=== PATIENT | male | born 1980 | race Caucasian/White ===

== ENCOUNTER 2017-08-11 10:30 | Day surgery (SDC) | payer MEDICAID ==
[~2017-08-11 10:30] MED LIST: INSU100V36 SQ; LANTUS SQ; LISI10TA4 PO
[2017-08-11] MEDS ORDERED: LIDOcaine 2% 5ml jelly ONE (12:16)
[2017-08-11] MEDS ORDERED: LIDOcaine 2% 5ml jelly TOP ONE (15:30)
== END 2017-08-11 12:44 | disposition home or self-care (01) ==
LOC: WOUND CARE 10:30
PROVIDERS: ATTEND Surgery
DX: E11.621 Type 2 diabetes mellitus with foot ulcer (principal); L97.511 Non-pressure chronic ulcer of other part of right foot limited to breakdown of skin; I10 Essential (primary) hypertension; Z72.89 Other problems related to lifestyle
CPT/HCPCS: 11042; 36416; 82948; A6021; A6206; A6209; A6446

== ENCOUNTER 2017-08-26 09:44 | Day surgery (SDC) | payer MEDICAID ==
[2017-08-26] MEDS ORDERED: LIDOcaine 2% 5ml jelly ONE (10:12)
== END 2017-08-26 11:00 | disposition home or self-care (01) ==
LOC: WOUND CARE 09:44
PROVIDERS: ATTEND Surgery
DX: E11.621 Type 2 diabetes mellitus with foot ulcer (principal); L97.511 Non-pressure chronic ulcer of other part of right foot limited to breakdown of skin; I10 Essential (primary) hypertension; Z72.89 Other problems related to lifestyle
CPT/HCPCS: 11042; 36416; 82948; A6021; A6209; A6222

== ENCOUNTER 2017-09-02 08:45 | Day surgery (SDC) | payer MEDICAID ==
[2017-09-02] MEDS ORDERED: LIDOcaine 2% 5ml jelly ONE (09:28)
== END 2017-09-02 10:57 | disposition home or self-care (01) ==
LOC: WOUND CARE 08:45
PROVIDERS: ATTEND Surgery
DX: E11.621 Type 2 diabetes mellitus with foot ulcer (principal); L97.511 Non-pressure chronic ulcer of other part of right foot limited to breakdown of skin; I10 Essential (primary) hypertension; Z89.431 Acquired absence of right foot; Z72.89 Other problems related to lifestyle
CPT/HCPCS: 15275; 36416; 82948; A6212; A6222; Q4106

== ENCOUNTER 2017-09-09 09:06 | Day surgery (SDC) | payer MEDICAID ==
[2017-09-09] MEDS ORDERED: dextrose ORAL solution 15 GM/59 ML bottle ONE ×2 (09:50→10:09)
[2017-09-09] MEDS ORDERED: LIDOcaine 2% 5ml jelly ONE (09:57)
[2017-09-09] MEDS ORDERED: LIDOcaine 1%/PF (10mg/ml) 5ml vial ONE (10:38)
== END 2017-09-09 11:04 | disposition home or self-care (01) ==
LOC: WOUND CARE 09:06
PROVIDERS: ATTEND Surgery
DX: E11.621 Type 2 diabetes mellitus with foot ulcer (principal); L97.511 Non-pressure chronic ulcer of other part of right foot limited to breakdown of skin; I10 Essential (primary) hypertension; Z89.431 Acquired absence of right foot; Z72.89 Other problems related to lifestyle
CPT/HCPCS: 15275; 36416; 82948; A6209; A6222; J2001; Q4106; A6250

== ENCOUNTER 2017-09-11 09:20 | Outpatient (CLI) | payer MEDICAID | END 2017-09-11 10:03 | disposition home or self-care (01) | LOC: WOUND CARE 09:20 | PROVIDERS: ATTEND Surgery | DX: E11.621 Type 2 diabetes mellitus with foot ulcer (principal); L97.511 Non-pressure chronic ulcer of other part of right foot limited to breakdown of skin; I10 Essential (primary) hypertension; Z89.431 Acquired absence of right foot; Z72.89 Other problems related to lifestyle | CPT/HCPCS: 36416; 82948; 99211; A6209; A6446 ==

== ENCOUNTER 2017-09-16 10:21 | Outpatient (CLI) | payer MEDICAID | END 2017-09-16 11:44 | disposition home or self-care (01) | LOC: WOUND CARE 10:21 → EDSTATUS 10:30 → WOUND CARE 11:44 | PROVIDERS: ATTEND Surgery | DX: E11.621 Type 2 diabetes mellitus with foot ulcer (principal); L97.511 Non-pressure chronic ulcer of other part of right foot limited to breakdown of skin; E11.40 Type 2 diabetes mellitus with diabetic neuropathy, unspecified; I10 Essential (primary) hypertension; Z89.431 Acquired absence of right foot; Z72.89 Other problems related to lifestyle | CPT/HCPCS: 36416; 82948; 99215; A6021; A6206; A6212 ==

== ENCOUNTER 2017-09-23 08:51 | Day surgery (SDC) | payer MEDICAID ==
[2017-09-23] MEDS ORDERED: LIDOcaine 2% 5ml jelly ONE (09:51)
[2017-09-23 10:45] LABS: BASOPHILS % (AUTO) 0.4 % (0-1); EOSINOPHILS # (AUTO) 0.2 X10'3 (0-0.9); EOSINOPHILS % (AUTO) 4.1 % (0-6); HEMOGLOBIN 13.8 g/dl (14.0-17.9); LYMPHOCYTES % (AUTO) 16.1 % (21-51); MEAN CORPUSCULAR HEMOGLOBIN 28.5 PG (27.0-31.0); MEAN CORPUSCULAR HGB CONC 34.5 % (33.0-36.5); MEAN CORPUSCULAR VOLUME 82.7 FL (78-98); MONOCYTES % (AUTO) 17.3 % (2-12); NEUTROPHILS # (AUTO) 3.7 X10'3 (1.8-7.7); NEUTROPHILS % (AUTO) 62.1 % (42-75); PLATELET COUNT 249 X10'3 (140-440); RED BLOOD COUNT 4.84 X10'6 (4.70-6.10); RED CELL DISTRIBUTION WIDTH 14.8 % (11.5-14.5)
== END 2017-09-23 11:45 | disposition home or self-care (01) ==
LOC: WOUND CARE 08:51
PROVIDERS: ATTEND Surgery
DX: E11.621 Type 2 diabetes mellitus with foot ulcer (principal); L97.511 Non-pressure chronic ulcer of other part of right foot limited to breakdown of skin; E11.40 Type 2 diabetes mellitus with diabetic neuropathy, unspecified; I10 Essential (primary) hypertension; Z89.431 Acquired absence of right foot; Z72.89 Other problems related to lifestyle
CPT/HCPCS: 11042; 36415; 36416; 82948; 85025; 87070; 87075; 87077; 87102; 87186; A6021; A6209; A6222

== ENCOUNTER 2017-09-30 09:42 | Day surgery (SDC) | payer MEDICAID ==
[2017-09-30] MEDS: LIDOcaine 2% 5ml jelly ONE (09:53)
== END 2017-09-30 11:07 | disposition home or self-care (01) ==
LOC: WOUND CARE 09:42
PROVIDERS: ATTEND Surgery
DX: E11.621 Type 2 diabetes mellitus with foot ulcer (principal); L97.511 Non-pressure chronic ulcer of other part of right foot limited to breakdown of skin; E11.40 Type 2 diabetes mellitus with diabetic neuropathy, unspecified; I10 Essential (primary) hypertension; Z89.431 Acquired absence of right foot; Z72.89 Other problems related to lifestyle
CPT/HCPCS: 15275; 36416; 82948; A6209; A6222; Q4106; A6250

== ENCOUNTER 2017-10-06 10:37 | Inpatient (IN) | payer MEDICAID ==
[~2017-10-06] VITALS: Ht 195.6 cm; Wt 102.5 kg
[2017-10-06] MEDS ORDERED: normal saline 1000ML IV soln IVB ONE ×3 (10:55→12:00)
[2017-10-06 11:15] LABS: BASOPHILS % (AUTO) 0 % (0-1); EOSINOPHILS # (AUTO) 0.3 X10'3 (0-0.9); EOSINOPHILS % (AUTO) 1.2 % (0-6); HEMATOCRIT 39.4 % (42.0-52.0); HEMOGLOBIN 13.3 g/dl (14.0-17.9); LYMPHOCYTES # (AUTO) 1.7 X10'3 (1.1-4.8); LYMPHOCYTES % (AUTO) 6.8 % (21-51); MEAN CORPUSCULAR HEMOGLOBIN 28.4 PG (27.0-31.0); MEAN CORPUSCULAR HGB CONC 33.8 % (33.0-36.5); MEAN CORPUSCULAR VOLUME 83.9 FL (78-98); MONOCYTES # (AUTO) 1.7 X10'3 (0-0.9); MONOCYTES % (AUTO) 6.9 % (2-12); NEUTROPHILS # (AUTO) 21.6 X10'3 (1.8-7.7); NEUTROPHILS % (AUTO) 85.1 % (42-75); PLATELET COUNT 591 X10'3 (140-440); RED CELL DISTRIBUTION WIDTH 14.3 % (11.5-14.5)
[2017-10-06 11:25] LABS: PARTIAL THROMBOPLASTIN TIME 26 SECONDS (22-32); PROTHROMBIN TIME 10.2 SECONDS (9.0-12.0)
[2017-10-06 11:27] LABS: WHITE BLOOD COUNT 25.4 X10'3 (4.5-11.0)
[2017-10-06 11:35] LABS: ALANINE AMINOTRANSFERASE 21 U/L (12-78); ALBUMIN 3.8 G/DL (3.4-5.0); ALKALINE PHOSPHATASE 104 IU/L (46-116); ANION GAP 34 (8-16); ASPARTATE AMINO TRANSFERASE 11 U/L (10-37); BILIRUBIN,TOTAL 0.8 MG/DL (0.1-1.0); BLOOD UREA NITROGEN 34 MG/DL (7-18); BUN/CREATININE RATIO 16.3 (5.4-32.0); CHLORIDE 93 MMOL/L (99-107); CREATINE KINASE 33 U/L (39-308); CREATININE 2.08 MG/DL (0.60-1.10); ETHANOL < 0.010 GM/DL (0.0-0.010); LIPASE 67 U/L (73-393); MAGNESIUM 1.9 MG/DL (1.5-2.4); POTASSIUM 5.7 MMOL/L (3.5-5.1); SODIUM 137 MMOL/L (135-145); TOTAL PROTEIN 7.5 G/DL (6.4-8.2); eGFR 36 ML/MIN
[2017-10-06 11:37] LABS: GLUCOSE 617 MG/DL (70-104); TOTAL CARBON DIOXIDE 9.6 MMOL/L (24-32)
[2017-10-06 11:56] LABS: TOTAL CELLS COUNTED 100
[2017-10-06 11:57] LABS: PLATELET ESTIMATE INCREASED
[2017-10-06] MEDS ORDERED: ondansetron/PF 4mg/2ml inj IV ONE ×2 (12:00→18:50)
[2017-10-06] MEDS ORDERED: insulin regular, human 10 units/0.1 ml syringe IV ONE (12:05)
[2017-10-06 12:43] LABS: CLARITY,URINE Clear (Clear); COLOR,URINE Yellow (Yellow); GLUCOSE, URINE >=1000 mg/dl (Neg); KETONES,URINE >=160 mg/dl (Neg); LEUKOCYTE ESTERASE ,URINE Negative (Neg); NITRITES, URINE Negative (Neg); OCCULT BLOOD,URINE Negative (Neg); PROTEIN,URINE Trace mg/dl (Neg); UA COLLECTION TYPE URINAL; UROBILINOGEN,URINE 0.2 E.U/dL (0.2-1.0)
[2017-10-06] MEDS: insulin regular, human 100 UNIT in normal saline 100ml IV soln 100 ML IV PRN ×4 (12:46→14:00)
[2017-10-06] MEDS ORDERED: LORazepam 2 mg/ml vial IV ONE ×2 (12:50→13:20)
[2017-10-06 12:53] LABS: HYALINE CASTS 0-3 /LPF (NEGATIVE); MUCUS STRANDS FEW /LPF (Neg); RBC,URINE NONE SEEN /HPF (0-2); SQUAMOUS EPITHELIAL CELL,UR FEW /LPF (FEW); URINE AMPHETAMINE SCREEN NEGATIVE (Neg); URINE BARBITUATE SCREEN NEGATIVE (Neg); URINE BENZODIAZEPINES SCREEN NEGATIVE (Neg); URINE CANNABINOID SCREEN NEGATIVE (Neg); URINE COCAINE SCREEN NEGATIVE (Neg); URINE METHADONE SCREEN NEGATIVE (Neg); URINE OPIATE SCREEN NEGATIVE (Neg); URINE PHENCYCLIDINE SCREEN NEGATIVE (Neg)
[2017-10-06 12:54] LABS: BACTERIA,URINE NONE SEEN /HPF (Neg); WBC,URINE 0-4 /HPF (0-4)
[2017-10-06 13:21] LABS: ABG BASE EXCESS -23.3 mmol/L (-2.0-3.0); ABG HCO3 4.6 mmol/L (22.0-26.0); ABG OXYGEN SATURATION 97.9 % (95-98); ABG PCO2 (T) 15.2 mmHg (35.0-48.0); ABG PH (T) 7.093 (7.350-7.450); ABG PO2 (T) 125.1 mmHg (83-108); ALLEN'S TEST Positive; FCOHb 0.3 % (0.5-1.5); FMetHb 0.2 % (0.3-1.12); FO2Hb 97.4 % (94-100); PATIENT TEMPERATURE 36.4; TOTAL HEMOGLOBIN 13.1 G/dl (14.0-18.0)
[2017-10-06] MEDS ORDERED: vancomycin/NS 1 GM ADD-VANTAGE 250 ML IV ONE (13:50)
[2017-10-06] MEDS ORDERED: sodium phosphate inj. 30 MMOL in dextrose 5%-water 250 ML IV PRN (14:00)
[2017-10-06] MEDS ORDERED: sodium bicarbonate (8.4%) inj. 50 MEQ in sodium chloride 0.45% 500ml 250 ML IV PRN (14:00)
[2017-10-06] MEDS ORDERED: potassium Cl 40MEQ/NS 500ml 500 ML IV PRN ×2 (14:00)
[2017-10-06] MEDS ORDERED: Neutra Phos packet PO PRN (14:00)
[2017-10-06] MEDS ORDERED: sodium bicarbonate (8.4%) inj. 100 MEQ in sodium chloride 0.45% 500ml 500 ML IV PRN (14:00)
[2017-10-06] MEDS: K and/or MAG REPLACEMENT MC SCH (14:00)
[2017-10-06] MEDS ORDERED: potassium Cl 20 mEq SR tablet PO PRN (14:00)
[2017-10-06] MEDS ORDERED: insulin regular, human 10 units/0.1 ml syringe SQ PRN (14:00)
[2017-10-06] MEDS: normal saline 1000ml 1,000 ML IV SCH ×5 (14:00→21:29)
[2017-10-06] MEDS ORDERED: ondansetron/PF 4mg/2ml inj IV PRN (14:05)
[2017-10-06] MEDS ORDERED: bisacodyl 10mg suppository rectal RC PRN (14:05)
[2017-10-06] MEDS ORDERED: magnesium hydroxide 30ml (MOM) UD suspension PO PRN (14:05)
[2017-10-06 14:51] LABS: ALBUMIN 3.7 G/DL (3.4-5.0); ANION GAP 31 (8-16); BLOOD UREA NITROGEN 32 MG/DL (7-18); BUN/CREATININE RATIO 17.3 (5.4-32.0); CALCIUM 8.4 MG/DL (8.5-10.1); CHLORIDE 101 MMOL/L (99-107); CREATININE 1.85 MG/DL (0.60-1.10); GLUCOSE 359 MG/DL (70-104); PHOSPHORUS 3.7 MG/DL (2.3-4.5); SODIUM 142 MMOL/L (135-145); eGFR 41 ML/MIN
[2017-10-06] MEDS ORDERED: heparin, porcine 5000 units/ml vial SQ SCH (16:00)
[2017-10-06] MEDS ORDERED: INSU100V9 SQ (16:11)
[2017-10-06] MEDS ORDERED: INSU100V11 SQ (16:11)
[2017-10-06 17:30] VITALS: BP 131/68
[2017-10-06] MEDS: potassium CL 20mEq in D5-1/2NS 1,000 ML IV PRN (17:37)
[2017-10-06 17:50] LABS: HEMOGLOBIN A1C 10.8 % (4.5-6.2)
[2017-10-06 19:00] VITALS: BP 144/63
[2017-10-06 19:08] LABS: ALBUMIN 3.7 G/DL (3.4-5.0); ANION GAP 21 (8-16); BLOOD UREA NITROGEN 31 MG/DL (7-18); BUN/CREATININE RATIO 17.7 (5.4-32.0); CALCIUM 8.7 MG/DL (8.5-10.1); CHLORIDE 106 MMOL/L (99-107); CREATININE 1.75 MG/DL (0.60-1.10); GLUCOSE 219 MG/DL (70-104); PHOSPHORUS 1.9 MG/DL (2.3-4.5); POTASSIUM 4.5 MMOL/L (3.5-5.1); SODIUM 143 MMOL/L (135-145); eGFR 44 ML/MIN
[2017-10-06 19:12] LABS: BASOPHILS % (AUTO) 0.1 % (0-1); EOSINOPHILS # (AUTO) 0.4 X10'3 (0-0.9); EOSINOPHILS % (AUTO) 1.5 % (0-6); HEMATOCRIT 39.6 % (42.0-52.0); HEMOGLOBIN 13.5 g/dl (14.0-17.9); LYMPHOCYTES # (AUTO) 1.6 X10'3 (1.1-4.8); LYMPHOCYTES % (AUTO) 6.8 % (21-51); MEAN CORPUSCULAR HEMOGLOBIN 28.2 PG (27.0-31.0); MEAN PLATELET VOLUME 8.1 FL (7.4-10.4); MONOCYTES # (AUTO) 1.8 X10'3 (0-0.9); MONOCYTES % (AUTO) 7.6 % (2-12); NEUTROPHILS # (AUTO) 19.9 X10'3 (1.8-7.7); PLATELET COUNT 534 X10'3 (140-440); RED BLOOD COUNT 4.77 X10'6 (4.70-6.10); RED CELL DISTRIBUTION WIDTH 13.7 % (11.5-14.5); WHITE BLOOD COUNT 23.7 X10'3 (4.5-11.0)
[2017-10-06 19:21] LABS: MAGNESIUM 2.1 MG/DL (1.5-2.4)
[2017-10-06] MEDS: ondansetron inj. 24 MG in normal saline 250ml IV soln 228 ML IV SCH (19:57)
[2017-10-06] MEDS ORDERED: [UNRECOGNIZED DRUG - OTHER] IV SCH (20:17)
[2017-10-06] MEDS ORDERED: SODIUM BICARBONATE IV SCH (20:17)
[2017-10-06] MEDS ORDERED: POTASSIUM CL IV SCH (20:17)
[2017-10-06] MEDS ORDERED: POTASSIUM CL IV ONE ×2 (20:28→21:00)
[2017-10-06] MEDS ORDERED: [UNRECOGNIZED DRUG - OTHER] IV ONE (20:28)
[2017-10-06] MEDS ORDERED: SODIUM BICARBONATE IV ONE ×2 (20:28→21:00)
[2017-10-06] MEDS ORDERED: [UNRECOGNIZED DRUG - OTHER] IV ONE (21:00)
[2017-10-06] MEDS: pantoprazole 40 MG vial IV SCH (21:28)
[2017-10-06] MEDS: sodium phosphate inj. 15 MMOL in dextrose 5%-water 150 ML IV PRN (21:29)
[2017-10-06 22:37] LABS: PHOSPHORUS 1.4 MG/DL (2.3-4.5)
[2017-10-06 23:00] VITALS: BP 122/78
[2017-10-06 23:30] LABS: ALBUMIN 3.6 G/DL (3.4-5.0); ANION GAP 16 (8-16); ASPARTATE AMINO TRANSFERASE 14 U/L (10-37); BILIRUBIN,TOTAL 0.7 MG/DL (0.1-1.0); BLOOD UREA NITROGEN 28 MG/DL (7-18); BUN/CREATININE RATIO 17.1 (5.4-32.0); CALCIUM 8.8 MG/DL (8.5-10.1); CHLORIDE 108 MMOL/L (99-107); CREATININE 1.64 MG/DL (0.60-1.10); GLUCOSE 207 MG/DL (70-104); POTASSIUM 4.5 MMOL/L (3.5-5.1); SODIUM 144 MMOL/L (135-145); TOTAL CARBON DIOXIDE 19.6 MMOL/L (24-32); TOTAL PROTEIN 7.2 G/DL (6.4-8.2); eGFR 47 ML/MIN
[2017-10-06 23:31] LABS: ALANINE AMINOTRANSFERASE 19 U/L (12-78); ALKALINE PHOSPHATASE 89 IU/L (46-116)
[2017-10-07] MEDS: normal saline 1000ml 1,000 ML IV SCH ×5 (00:19→17:29)
[2017-10-07] MEDS: potassium CL 20mEq in D5-1/2NS 1,000 ML IV PRN ×3 (01:48→18:43)
[2017-10-07 03:00] VITALS: BP 123/78
[2017-10-07 05:16] LABS: BASOPHILS % (AUTO) 0.1 % (0-1); EOSINOPHILS # (AUTO) 0.3 X10'3 (0-0.9); EOSINOPHILS % (AUTO) 1.6 % (0-6); HEMATOCRIT 36.5 % (42.0-52.0); HEMOGLOBIN 12.4 g/dl (14.0-17.9); LYMPHOCYTES # (AUTO) 1.2 X10'3 (1.1-4.8); LYMPHOCYTES % (AUTO) 6.6 % (21-51); MEAN CORPUSCULAR HEMOGLOBIN 28.2 PG (27.0-31.0); MEAN CORPUSCULAR VOLUME 82.8 FL (78-98); MEAN PLATELET VOLUME 7.7 FL (7.4-10.4); MONOCYTES # (AUTO) 1.8 X10'3 (0-0.9); MONOCYTES % (AUTO) 10.1 % (2-12); NEUTROPHILS # (AUTO) 14.6 X10'3 (1.8-7.7); NEUTROPHILS % (AUTO) 81.6 % (42-75); PLATELET COUNT 466 X10'3 (140-440); RED BLOOD COUNT 4.41 X10'6 (4.70-6.10); RED CELL DISTRIBUTION WIDTH 14.1 % (11.5-14.5); WHITE BLOOD COUNT 17.9 X10'3 (4.5-11.0)
[2017-10-07] MEDS: insulin regular, DKA only 100 UNIT in normal saline 100ml IV soln 99 ML IV SCH ×4 (05:23→23:02)
[2017-10-07 05:47] LABS: ANION GAP 11 (8-16); BILIRUBIN,TOTAL 0.7 MG/DL (0.1-1.0); BLOOD UREA NITROGEN 23 MG/DL (7-18); BUN/CREATININE RATIO 16.3 (5.4-32.0); CALCIUM 8.6 MG/DL (8.5-10.1); CHLORIDE 109 MMOL/L (99-107); CREATININE 1.41 MG/DL (0.60-1.10); GLUCOSE 174 MG/DL (70-104); PHOSPHORUS 1.8 MG/DL (2.3-4.5); POTASSIUM 3.6 MMOL/L (3.5-5.1); SODIUM 145 MMOL/L (135-145); TOTAL CARBON DIOXIDE 24.7 MMOL/L (24-32); TOTAL PROTEIN 6.8 G/DL (6.4-8.2); eGFR 56 ML/MIN
[2017-10-07 05:48] LABS: ALANINE AMINOTRANSFERASE 19 U/L (12-78); ALBUMIN 3.4 G/DL (3.4-5.0); ALKALINE PHOSPHATASE 87 IU/L (46-116); ASPARTATE AMINO TRANSFERASE 12 U/L (10-37)
[2017-10-07 06:00] VITALS: BP 160/99
[2017-10-07] MEDS: pantoprazole 40 MG vial IV SCH ×2 (07:55→20:12)
[2017-10-07] MEDS: K and/or MAG REPLACEMENT MC SCH (08:00)
[2017-10-07 10:20] LABS: PHOSPHORUS 1.6 MG/DL (2.3-4.5)
[2017-10-07] MEDS ORDERED: dextrose ORAL solution 15 GM/59 ML bottle PO PRN ×2 (10:25)
[2017-10-07] MEDS ORDERED: MESSAGE TO PHARMACY PO ONE (10:25)
[2017-10-07] MEDS ORDERED: glucagon, human recombinant 1mg kit SUBCUT PRN (10:25)
[2017-10-07] MEDS ORDERED: dextrose 50%-water 50ml dispensing syringe IV PRN ×2 (10:25)
[2017-10-07 11:00] VITALS: BP 141/87
[2017-10-07] MEDS: sodium phosphate inj. 15 MMOL in dextrose 5%-water 150 ML IV PRN (11:25)
[2017-10-07 11:33] LABS: ALBUMIN 3.1 G/DL (3.4-5.0); ANION GAP 10 (8-16); BLOOD UREA NITROGEN 20 MG/DL (7-18); BUN/CREATININE RATIO 15.6 (5.4-32.0); CALCIUM 8.5 MG/DL (8.5-10.1); CHLORIDE 110 MMOL/L (99-107); CREATININE 1.28 MG/DL (0.60-1.10); GLUCOSE 144 MG/DL (70-104); POTASSIUM 3.5 MMOL/L (3.5-5.1); SODIUM 144 MMOL/L (135-145); TOTAL CARBON DIOXIDE 24.4 MMOL/L (24-32); eGFR 63 ML/MIN
[2017-10-07] MEDS: NUT.TX.GLUC.INTOLER,LAC-FR,REG (BOOST GLUCOSE CONTROL) 237 ML PO SCH ×2 (13:00→17:29)
[2017-10-07 15:00] VITALS: BP 140/94
[2017-10-07 15:19] LABS: ALBUMIN 3.1 G/DL (3.4-5.0); ANION GAP 9 (8-16); BLOOD UREA NITROGEN 17 MG/DL (7-18); BUN/CREATININE RATIO 14.9 (5.4-32.0); CALCIUM 8.3 MG/DL (8.5-10.1); CHLORIDE 108 MMOL/L (99-107); CREATININE 1.14 MG/DL (0.60-1.10); GLUCOSE 139 MG/DL (70-104); POTASSIUM 3.4 MMOL/L (3.5-5.1); SODIUM 142 MMOL/L (135-145); TOTAL CARBON DIOXIDE 25.3 MMOL/L (24-32); eGFR 72 ML/MIN
[2017-10-07] MEDS: potassium Cl 20 mEq SR tablet PO PRN (16:26)
[2017-10-07] MEDS: ondansetron inj. 24 MG in normal saline 250ml IV soln 228 ML IV SCH (17:29)
[2017-10-07 19:00] VITALS: BP 156/83
[2017-10-07] MEDS ORDERED: ALUM HYDROX PO PRN ×3 (20:35)
[2017-10-07] MEDS ORDERED: [UNRECOGNIZED DRUG - OTHER] PO PRN ×3 (20:35)
[2017-10-07] MEDS ORDERED: LIDOCAINE VISCOUS PO PRN ×3 (20:35)
[2017-10-07] MEDS ORDERED: SIMETH PO PRN ×3 (20:35)
[2017-10-07] MEDS ORDERED: MAG PO PRN ×3 (20:35)
[2017-10-07] MEDS: insulin glargine (Lantus) pen - multi-dose SQ SCH (21:00)
[2017-10-07 23:00] VITALS: BP 140/99
[2017-10-08] VITALS (17 sets, daily range): BP systolic 135–185; BP diastolic 77–113
[2017-10-08 05:48] LABS: BASOPHILS # (AUTO) 0.1 X10'3 (0-0.2); BASOPHILS % (AUTO) 0.6 % (0-1); EOSINOPHILS # (AUTO) 0.2 X10'3 (0-0.9); EOSINOPHILS % (AUTO) 1.8 % (0-6); HEMATOCRIT 34.6 % (42.0-52.0); HEMOGLOBIN 11.7 g/dl (14.0-17.9); LYMPHOCYTES # (AUTO) 1.6 X10'3 (1.1-4.8); LYMPHOCYTES % (AUTO) 13.8 % (21-51); MEAN CORPUSCULAR HEMOGLOBIN 28.2 PG (27.0-31.0); MEAN CORPUSCULAR HGB CONC 33.9 % (33.0-36.5); MEAN CORPUSCULAR VOLUME 83.1 FL (78-98); MONOCYTES # (AUTO) 1.1 X10'3 (0-0.9); MONOCYTES % (AUTO) 9.3 % (2-12); NEUTROPHILS # (AUTO) 8.7 X10'3 (1.8-7.7); NEUTROPHILS % (AUTO) 74.5 % (42-75); PLATELET COUNT 359 X10'3 (140-440); RED BLOOD COUNT 4.17 X10'6 (4.70-6.10); RED CELL DISTRIBUTION WIDTH 14.5 % (11.5-14.5); WHITE BLOOD COUNT 11.7 X10'3 (4.5-11.0)
[2017-10-08 05:55] LABS: ALANINE AMINOTRANSFERASE 14 U/L (12-78); ALBUMIN 2.7 G/DL (3.4-5.0); ALBUMIN/GLOBULIN RATIO 0.9 (1.1-1.5); ALKALINE PHOSPHATASE 76 IU/L (46-116); ANION GAP 8 (8-16); ASPARTATE AMINO TRANSFERASE 14 U/L (10-37); BILIRUBIN,TOTAL 0.7 MG/DL (0.1-1.0); BLOOD UREA NITROGEN 9 MG/DL (7-18); BUN/CREATININE RATIO 8.4 (5.4-32.0); CALCIUM 8.1 MG/DL (8.5-10.1); CHLORIDE 108 MMOL/L (99-107); CREATININE 1.07 MG/DL (0.60-1.10); GLUCOSE 188 MG/DL (70-104); MAGNESIUM 1.7 MG/DL (1.5-2.4); POTASSIUM 3.4 MMOL/L (3.5-5.1); SODIUM 141 MMOL/L (135-145); TOTAL CARBON DIOXIDE 24.8 MMOL/L (24-32); TOTAL PROTEIN 5.8 G/DL (6.4-8.2); eGFR 77 ML/MIN
[2017-10-08] MEDS: NUT.TX.GLUC.INTOLER,LAC-FR,REG (BOOST GLUCOSE CONTROL) 237 ML PO SCH ×3 (08:00→17:45)
[2017-10-08] MEDS: piperacillin/tazo 3.375gm/50ml 50 ML IV SCH ×3 (08:00→23:27)
[2017-10-08] MEDS: K and/or MAG REPLACEMENT MC SCH (08:00)
[2017-10-08] MEDS ORDERED: MESSAGE TO NURSING IV ONE (08:25)
[2017-10-08] MEDS: famotidine/PF 10 mg/ml inj IV SCH ×2 (08:42→20:00)
[2017-10-08] MEDS: pantoprazole 40 MG vial IV SCH ×2 (08:42→20:00)
[2017-10-08] MEDS: potassium Cl 20 mEq SR tablet PO PRN ×2 (08:43→23:25)
[2017-10-08] MEDS: sodium phosphate inj. 15 MMOL in dextrose 5%-water 150 ML IV PRN (08:45)
[2017-10-08] MEDS ORDERED: scopolamine 1.5mg patch.TD72 TD SCH (09:50)
[2017-10-08] MEDS: vancomycin/NS 1 GM ADD-VANTAGE 250 ML IV SCH ×2 (10:22→11:54)
[2017-10-08] MEDS: calcium carbonate 500mg chew tablet PO SCH ×2 (12:30→17:30)
[2017-10-08] MEDS: Potassium Cl inj 20 MEQ in dextrose 5%-1/2 normal saline 1,000 ML IV PRN ×3 (15:05→16:41)
[2017-10-08] MEDS: ondansetron inj. 24 MG in normal saline 250ml IV soln 228 ML IV SCH (17:14)
[2017-10-08] MEDS: lactobacillus rhamnosus 10,000 MMU CELLS/CAPSULE PO SCH (17:30)
[2017-10-08] MEDS ORDERED: MIDAZolam 5mg/ml 2ml vial IV PRN (18:35)
[2017-10-08] MEDS ORDERED: LIDOcaine Viscous 15ml cup PO ONE (18:35)
[2017-10-08] MEDS ORDERED: simethicone 40mg/0.6ml oral drops 30ml MC ONE (18:35)
[2017-10-08] MEDS ORDERED: fentaNYL/PF 50MCG/1 ML 2ML syringe IV PRN (18:35)
[2017-10-08] MEDS ORDERED: fentaNYL/PF 50MCG/1 ML 2ML syringe ONE ×2 (18:47→19:00)
[2017-10-08] MEDS ORDERED: MIDAZolam 5mg/5ml vial ONE ×2 (18:48→19:00)
[2017-10-08] MEDS ORDERED: LIDOcaine Viscous 15ml cup ONE (18:48)
[2017-10-08] MEDS ORDERED: diphenhydrAMINE 50 mg/ml inj ONE (19:00)
[2017-10-08 20:40] LABS: ALBUMIN 2.8 G/DL (3.4-5.0); ANION GAP 8 (8-16); BLOOD UREA NITROGEN 4 MG/DL (7-18); BUN/CREATININE RATIO 4.3 (5.4-32.0); CALCIUM 8.5 MG/DL (8.5-10.1); CHLORIDE 107 MMOL/L (99-107); CREATININE 0.93 MG/DL (0.60-1.10); GLUCOSE 179 MG/DL (70-104); POTASSIUM 3.4 MMOL/L (3.5-5.1); SODIUM 143 MMOL/L (135-145); TOTAL CARBON DIOXIDE 28.5 MMOL/L (24-32); eGFR > 90 ML/MIN
[2017-10-08] MEDS: metoclopramide 10mg tablet PO SCH (21:14)
[2017-10-08] MEDS: insulin glargine (Lantus) pen - multi-dose SQ SCH (23:19)
[2017-10-08] MEDS: insulin Lispro (HumaLOG) vial - multi-dose SQ SCH (23:21)
[2017-10-09] VITALS (7 sets, daily range): BP systolic 131–164; BP diastolic 51–108
[2017-10-09 06:38] LABS: BASOPHILS % (AUTO) 0.4 % (0-1); EOSINOPHILS # (AUTO) 0.2 X10'3 (0-0.9); EOSINOPHILS % (AUTO) 1.6 % (0-6); HEMATOCRIT 36.9 % (42.0-52.0); HEMOGLOBIN 12.7 g/dl (14.0-17.9); LYMPHOCYTES # (AUTO) 1.6 X10'3 (1.1-4.8); LYMPHOCYTES % (AUTO) 15.3 % (21-51); MEAN CORPUSCULAR HEMOGLOBIN 28.4 PG (27.0-31.0); MEAN CORPUSCULAR HGB CONC 34.4 % (33.0-36.5); MEAN CORPUSCULAR VOLUME 82.7 FL (78-98); MEAN PLATELET VOLUME 7.4 FL (7.4-10.4); MONOCYTES # (AUTO) 1.1 X10'3 (0-0.9); MONOCYTES % (AUTO) 10.7 % (2-12); NEUTROPHILS # (AUTO) 7.7 X10'3 (1.8-7.7); PLATELET COUNT 352 X10'3 (140-440); RED BLOOD COUNT 4.46 X10'6 (4.70-6.10); RED CELL DISTRIBUTION WIDTH 14.3 % (11.5-14.5); WHITE BLOOD COUNT 10.6 X10'3 (4.5-11.0)
[2017-10-09] MEDS: pantoprazole 40 MG vial IV SCH (06:50)
[2017-10-09] MEDS: famotidine/PF 10 mg/ml inj IV SCH ×2 (06:50→19:08)
[2017-10-09] MEDS: metoclopramide 10mg tablet PO SCH ×4 (06:52→22:12)
[2017-10-09 07:03] LABS: ALANINE AMINOTRANSFERASE 22 U/L (12-78); ALBUMIN 2.8 G/DL (3.4-5.0); ALBUMIN/GLOBULIN RATIO 0.8 (1.1-1.5); ALKALINE PHOSPHATASE 83 IU/L (46-116); ANION GAP 7 (8-16); ASPARTATE AMINO TRANSFERASE 14 U/L (10-37); BILIRUBIN,TOTAL 1.3 MG/DL (0.1-1.0); BLOOD UREA NITROGEN 5 MG/DL (7-18); BUN/CREATININE RATIO 5.7 (5.4-32.0); CALCIUM 8.5 MG/DL (8.5-10.1); CHLORIDE 106 MMOL/L (99-107); CREATININE 0.88 MG/DL (0.60-1.10); GLUCOSE 161 MG/DL (70-104); MAGNESIUM 1.7 MG/DL (1.5-2.4); POTASSIUM 3.5 MMOL/L (3.5-5.1); SODIUM 141 MMOL/L (135-145); TOTAL CARBON DIOXIDE 27.8 MMOL/L (24-32); TOTAL PROTEIN 6.1 G/DL (6.4-8.2); eGFR > 90 ML/MIN
[2017-10-09] MEDS: lactobacillus rhamnosus 10,000 MMU CELLS/CAPSULE PO SCH ×2 (07:53→16:56)
[2017-10-09] MEDS: K and/or MAG REPLACEMENT MC SCH (08:00)
[2017-10-09] MEDS: NUT.TX.GLUC.INTOLER,LAC-FR,REG (BOOST GLUCOSE CONTROL) 237 ML PO SCH ×3 (08:00→18:00)
[2017-10-09] MEDS: calcium carbonate 500mg chew tablet PO SCH ×3 (08:30→17:38)
[2017-10-09] MEDS: piperacillin/tazo 3.375gm/50ml 50 ML IV SCH ×3 (08:49→23:24)
[2017-10-09] MEDS ORDERED: ondansetron/PF 4mg/2ml inj IV PRN (11:50)
[2017-10-09] MEDS: insulin Lispro (HumaLOG) vial - multi-dose SQ SCH ×2 (13:24→19:08)
[2017-10-09] MEDS ORDERED: VANCOMYCIN LEVEL IV NR (15:30)
[2017-10-09] MEDS: pantoprazole 40mg Tablet.DR PO SCH (19:11)
[2017-10-09] MEDS: insulin glargine (Lantus) pen - multi-dose SQ SCH (22:10)
[2017-10-10 03:00] VITALS: BP 145/87
[2017-10-10 05:49] LABS: BASOPHILS % (AUTO) 0.3 % (0-1); EOSINOPHILS # (AUTO) 0.2 X10'3 (0-0.9); HEMATOCRIT 37.4 % (42.0-52.0); LYMPHOCYTES # (AUTO) 1.3 X10'3 (1.1-4.8); LYMPHOCYTES % (AUTO) 14.3 % (21-51); MEAN CORPUSCULAR HEMOGLOBIN 28.5 PG (27.0-31.0); MEAN CORPUSCULAR HGB CONC 34.7 % (33.0-36.5); MEAN CORPUSCULAR VOLUME 82.1 FL (78-98); MEAN PLATELET VOLUME 7.4 FL (7.4-10.4); MONOCYTES % (AUTO) 10.7 % (2-12); NEUTROPHILS # (AUTO) 6.6 X10'3 (1.8-7.7); NEUTROPHILS % (AUTO) 72.7 % (42-75); PLATELET COUNT 293 X10'3 (140-440); RED BLOOD COUNT 4.56 X10'6 (4.70-6.10); RED CELL DISTRIBUTION WIDTH 14.3 % (11.5-14.5); WHITE BLOOD COUNT 9.1 X10'3 (4.5-11.0)
[2017-10-10 06:00] VITALS: BP_SYST 116; BP_SYST 158; BP_DIAS 59; BP_DIAS 86
[2017-10-10 06:19] LABS: ANION GAP 8 (8-16); BLOOD UREA NITROGEN 11 MG/DL (7-18); BUN/CREATININE RATIO 8.1 (5.4-32.0); CHLORIDE 103 MMOL/L (99-107); CREATININE 1.35 MG/DL (0.60-1.10); GLUCOSE 273 MG/DL (70-104); SODIUM 141 MMOL/L (135-145); TOTAL CARBON DIOXIDE 30.5 MMOL/L (24-32); eGFR 59 ML/MIN
[2017-10-10 06:20] LABS: ALANINE AMINOTRANSFERASE 19 U/L (12-78); ALBUMIN 2.9 G/DL (3.4-5.0); ALBUMIN/GLOBULIN RATIO 0.8 (1.1-1.5); ALKALINE PHOSPHATASE 85 IU/L (46-116); ASPARTATE AMINO TRANSFERASE 12 U/L (10-37); BILIRUBIN,TOTAL 1.5 MG/DL (0.1-1.0); MAGNESIUM 1.8 MG/DL (1.5-2.4); TOTAL PROTEIN 6.4 G/DL (6.4-8.2)
[2017-10-10] MEDS: lactobacillus rhamnosus 10,000 MMU CELLS/CAPSULE PO SCH ×2 (07:29→17:13)
[2017-10-10] MEDS: pantoprazole 40mg Tablet.DR PO SCH (07:29)
[2017-10-10] MEDS: metoclopramide 10mg tablet PO SCH ×3 (07:29→17:13)
[2017-10-10] MEDS: famotidine/PF 10 mg/ml inj IV SCH (07:30)
[2017-10-10] MEDS: piperacillin/tazo 3.375gm/50ml 50 ML IV SCH ×2 (07:30→16:00)
[2017-10-10] MEDS: K and/or MAG REPLACEMENT MC SCH (07:30)
[2017-10-10] MEDS: calcium carbonate 500mg chew tablet PO SCH ×3 (07:37→17:13)
[2017-10-10] MEDS: NUT.TX.GLUC.INTOLER,LAC-FR,REG (BOOST GLUCOSE CONTROL) 237 ML PO SCH ×2 (07:38→12:31)
[2017-10-10] MEDS: insulin Lispro (HumaLOG) vial - multi-dose SQ SCH (10:18)
[2017-10-10 11:00] VITALS: BP 134/93
[2017-10-10] MEDS ORDERED: normal saline 1000ml 1,000 ML IV ONE (12:15)
[2017-10-10] MEDS ORDERED: insulin Lispro (HumaLOG) vial - multi-dose SQ ONE (12:45)
[2017-10-10 13:00] VITALS: BP 120/65
[2017-10-10 15:00] VITALS: BP 129/87
[2017-10-10] MEDS ORDERED: insulin Lispro (HumaLOG) vial - multi-dose SQ STA (15:44)
[2017-10-10] MEDS ORDERED: METO10TA3 PO (16:40)
[2017-10-10] MEDS ORDERED: PANT40TA4 PO (16:40)
[2017-10-10] MEDS ORDERED: CIP750T PO (16:40)
[2017-10-10] MEDS ORDERED: CALC300T4 PO (16:40)
[2017-10-10] MEDS ORDERED: METR500T PO (16:40)
[2017-10-10] MEDS ORDERED: famotidine 20mg tablet PO SCH (20:00)
== END 2017-10-10 17:40 | disposition home or self-care (01) | DRG 720 ==
LOC: ER 10:37 → ED HOLD 14:03 → PCU 3S 17:11
PROVIDERS: ADMIT Internal Medicine; ATTEND Internal Medicine
PROC: 0DB58ZX Excision of Esophagus, Via Natural or Artificial Opening Endoscopic, Diagnostic (ICD-10-PCS; principal; 2017-10-08)
DX: A41.9 Sepsis, unspecified organism (principal); E11.10 Type 2 diabetes mellitus with ketoacidosis without coma; K22.11 Ulcer of esophagus with bleeding; E11.621 Type 2 diabetes mellitus with foot ulcer; L97.519 Non-pressure chronic ulcer of other part of right foot with unspecified severity; G89.29 Other chronic pain; M54.9 Dorsalgia, unspecified; K21.0 Gastro-esophageal reflux disease with esophagitis; K29.70 Gastritis, unspecified, without bleeding; Z79.4 Long term (current) use of insulin; Z89.431 Acquired absence of right foot; Z88.5 Allergy status to narcotic agent; Z88.8 Allergy status to other drugs, medicaments and biological substances; Z83.3 Family history of diabetes mellitus; Z82.3 Family history of stroke; Z82.49 Family history of ischemic heart disease and other diseases of the circulatory system; Z82.5 Family history of asthma and other chronic lower respiratory diseases
CPT/HCPCS: 36415; 36600; 43193; 71045; 73630; 73720; 76700; 80048; 80053; 80305; 80320; 81001; 82550; 82803; 82948; 83036; 83605; 83690; 83735; 83874; 84100; 84484; 85018; 85025; 85610; 85651; 85730; 87040; 87070; 93005; 93306; 96361; 96374; 96375; 99291; A4620; A6209; A6212; A6223; C9113; G0500; J1200; J1815; J2060; J2250; J2405; J2543; J3010; J3370; J3480; J3490; J7030; J7060; J8597

== ENCOUNTER 2017-10-21 08:56 | Outpatient (CLI) | payer MEDICAID ==
[~2017-10-21 08:56] MED LIST changes: +CALC300T4 PO; +CIP750T PO; +INSU100V11 SQ; -INSU100V36 SQ; +INSU100V9 SQ; -LANTUS SQ; -LISI10TA4 PO; +METO10TA3 PO; +METR500T PO; +PANT40TA4 PO
== END 2017-10-21 10:02 | disposition home or self-care (01) ==
LOC: WOUND CARE 08:56 → EDSTATUS 09:00 → WOUND CARE 10:02
PROVIDERS: ATTEND Surgery
DX: E11.621 Type 2 diabetes mellitus with foot ulcer (principal); L97.511 Non-pressure chronic ulcer of other part of right foot limited to breakdown of skin; E11.40 Type 2 diabetes mellitus with diabetic neuropathy, unspecified; I10 Essential (primary) hypertension; Z89.431 Acquired absence of right foot; Z72.89 Other problems related to lifestyle
CPT/HCPCS: 36416; 82948; 99215; A4414; A6212

== ENCOUNTER 2017-11-04 08:50 | Outpatient (CLI) | payer MEDICAID ==
[~2017-11-04 08:50] MED LIST changes: -CIP750T PO; -METR500T PO
== END 2017-11-04 09:24 | disposition home or self-care (01) ==
LOC: WOUND CARE 08:50 → EDSTATUS 09:00 → WOUND CARE 09:24
PROVIDERS: ATTEND Surgery
DX: E11.621 Type 2 diabetes mellitus with foot ulcer (principal); L97.511 Non-pressure chronic ulcer of other part of right foot limited to breakdown of skin; E11.40 Type 2 diabetes mellitus with diabetic neuropathy, unspecified; E11.10 Type 2 diabetes mellitus with ketoacidosis without coma; I10 Essential (primary) hypertension; K21.0 Gastro-esophageal reflux disease with esophagitis; Z89.431 Acquired absence of right foot; Z72.89 Other problems related to lifestyle; Z79.4 Long term (current) use of insulin
CPT/HCPCS: 36416; 82948; 99211; A4414

== ENCOUNTER 2017-11-12 08:59 | Outpatient (CLI) | payer MEDICAID | END 2017-11-12 10:06 | disposition home or self-care (01) | LOC: WOUND CARE 08:59 → EDSTATUS 09:00 → WOUND CARE 10:06 | PROVIDERS: ATTEND Surgery | DX: E11.621 Type 2 diabetes mellitus with foot ulcer (principal); L97.511 Non-pressure chronic ulcer of other part of right foot limited to breakdown of skin; E11.40 Type 2 diabetes mellitus with diabetic neuropathy, unspecified; E11.10 Type 2 diabetes mellitus with ketoacidosis without coma; I10 Essential (primary) hypertension; K21.0 Gastro-esophageal reflux disease with esophagitis; Z89.431 Acquired absence of right foot; Z79.4 Long term (current) use of insulin | CPT/HCPCS: 36416; 82948; 99214; A4414 ==

== ENCOUNTER 2017-12-23 09:54 | Day surgery (SDC) | payer MEDICAID ==
[~2017-12-23 09:54] MED LIST changes: +METO-292 PO
== END 2017-12-23 10:49 | disposition home or self-care (01) ==
LOC: WOUND CARE 09:54
PROVIDERS: ATTEND Surgery
DX: E11.621 Type 2 diabetes mellitus with foot ulcer (principal); L97.511 Non-pressure chronic ulcer of other part of right foot limited to breakdown of skin; E11.40 Type 2 diabetes mellitus with diabetic neuropathy, unspecified; E11.10 Type 2 diabetes mellitus with ketoacidosis without coma; I10 Essential (primary) hypertension; K21.0 Gastro-esophageal reflux disease with esophagitis; Z89.431 Acquired absence of right foot; Z79.4 Long term (current) use of insulin
CPT/HCPCS: 36416; 82948; 97597; A6021; A6206; A6209

== ENCOUNTER 2018-03-24 08:57 | Day surgery (SDC) | payer MEDICAID ==
[2018-03-24] MEDS: LIDOcaine 2% 5ml jelly ONE (09:56)
== END 2018-03-24 11:20 | disposition home or self-care (01) ==
LOC: WOUND CARE 08:57
PROVIDERS: ATTEND Surgery
DX: E11.621 Type 2 diabetes mellitus with foot ulcer (principal); L97.512 Non-pressure chronic ulcer of other part of right foot with fat layer exposed; E11.40 Type 2 diabetes mellitus with diabetic neuropathy, unspecified; E11.10 Type 2 diabetes mellitus with ketoacidosis without coma; E11.65 Type 2 diabetes mellitus with hyperglycemia; I10 Essential (primary) hypertension; K21.0 Gastro-esophageal reflux disease with esophagitis; Z89.431 Acquired absence of right foot; Z79.4 Long term (current) use of insulin
CPT/HCPCS: 11042; 36416; 82948; 87070; 87075; 87077; 87102; 87186; A6021; A6446; 87076; 87185

== ENCOUNTER 2018-03-26 11:41 | Outpatient (CLI) | payer MEDICAID | END 2018-03-26 12:28 | disposition home or self-care (01) | LOC: WOUND CARE 11:41 | PROVIDERS: ATTEND Surgery | DX: E11.621 Type 2 diabetes mellitus with foot ulcer (principal); L97.512 Non-pressure chronic ulcer of other part of right foot with fat layer exposed; E11.40 Type 2 diabetes mellitus with diabetic neuropathy, unspecified; E11.10 Type 2 diabetes mellitus with ketoacidosis without coma; E11.65 Type 2 diabetes mellitus with hyperglycemia; I10 Essential (primary) hypertension; K21.0 Gastro-esophageal reflux disease with esophagitis; Z89.431 Acquired absence of right foot; Z79.4 Long term (current) use of insulin | CPT/HCPCS: 36416; 82948; 99211; A6021; A6206; A6209; A6446 ==

== ENCOUNTER 2018-03-31 08:56 | Day surgery (SDC) | payer MEDICAID ==
[2018-03-31] MEDS ORDERED: LIDOcaine 2% 5ml jelly ONE (09:40)
[2018-03-31] MEDS ORDERED: CIPR-259 PO (14:16)
== END 2018-03-31 11:00 | disposition home or self-care (01) ==
LOC: WOUND CARE 08:56
PROVIDERS: ATTEND Surgery
DX: E11.621 Type 2 diabetes mellitus with foot ulcer (principal); L97.512 Non-pressure chronic ulcer of other part of right foot with fat layer exposed; E11.40 Type 2 diabetes mellitus with diabetic neuropathy, unspecified; E11.10 Type 2 diabetes mellitus with ketoacidosis without coma; E11.65 Type 2 diabetes mellitus with hyperglycemia; I10 Essential (primary) hypertension; K21.0 Gastro-esophageal reflux disease with esophagitis; Z89.431 Acquired absence of right foot; Z79.4 Long term (current) use of insulin
CPT/HCPCS: 11042; 36416; 82948; A6021; A6206; A6207; A6209; A6446

== ENCOUNTER 2018-04-07 08:40 | Day surgery (SDC) | payer MEDICAID ==
[~2018-04-07 08:40] MED LIST changes: +CIPR-259 PO
[2018-04-07] MEDS ORDERED: LIDOcaine 2% 5ml jelly ONE (09:02)
[2018-04-08] MEDS ORDERED: CLIN150C2 PO (15:28)
== END 2018-04-07 09:42 | disposition home or self-care (01) ==
LOC: WOUND CARE 08:40
PROVIDERS: ATTEND Surgery
DX: E11.621 Type 2 diabetes mellitus with foot ulcer (principal); L97.512 Non-pressure chronic ulcer of other part of right foot with fat layer exposed; E11.40 Type 2 diabetes mellitus with diabetic neuropathy, unspecified; E11.10 Type 2 diabetes mellitus with ketoacidosis without coma; E11.65 Type 2 diabetes mellitus with hyperglycemia; I10 Essential (primary) hypertension; K21.0 Gastro-esophageal reflux disease with esophagitis; Z89.431 Acquired absence of right foot; Z79.4 Long term (current) use of insulin
CPT/HCPCS: 36416; 82948; 97597; A6021; A6206; A6209; A6446

== ENCOUNTER 2018-04-08 14:02 | Emergency (ER) | payer MEDICAID ==
[~2018-04-08] VITALS: Ht 195.6 cm; Wt 101.0 kg
[2018-04-08] MEDS ORDERED: CLIN150C2 PO (15:28)
[2018-04-08] MEDS ORDERED: clindamycin 150mg capsule PO ONE (15:30)
[2018-04-08 16:07] VITALS: BP 133/86
== END 2018-04-08 16:19 | disposition home or self-care (01) ==
LOC: ER 14:02
DX: E10.621 Type 1 diabetes mellitus with foot ulcer (principal); L97.428 Non-pressure chronic ulcer of left heel and midfoot with other specified severity; R50.9 Fever, unspecified; G89.29 Other chronic pain; Z88.6 Allergy status to analgesic agent; Z88.5 Allergy status to narcotic agent; Z79.4 Long term (current) use of insulin; Z79.899 Other long term (current) drug therapy
CPT/HCPCS: 73630; 99284; A6446; A6449

== ENCOUNTER 2018-04-09 08:20 | Day surgery (SDC) | payer MEDICAID ==
[~2018-04-09 08:20] MED LIST changes: +CLIN150C2 PO
[2018-04-09] MEDS ORDERED: LIDOcaine 2% 5ml jelly ONE (09:57)
[2018-04-12] MEDS ORDERED: ERYT-109 (15:50)
== END 2018-04-09 11:12 | disposition home or self-care (01) ==
LOC: WOUND CARE 08:20
PROVIDERS: ATTEND Surgery
DX: E11.621 Type 2 diabetes mellitus with foot ulcer (principal); L97.512 Non-pressure chronic ulcer of other part of right foot with fat layer exposed; E11.40 Type 2 diabetes mellitus with diabetic neuropathy, unspecified; E11.10 Type 2 diabetes mellitus with ketoacidosis without coma; E11.65 Type 2 diabetes mellitus with hyperglycemia; I10 Essential (primary) hypertension; K21.0 Gastro-esophageal reflux disease with esophagitis; Z89.431 Acquired absence of right foot; Z79.4 Long term (current) use of insulin
CPT/HCPCS: 11042; 36416; 82948; 87070; 87075; 87077; 87102; 87176; 87186; A6021; A6209; A6222; A6446

== ENCOUNTER 2018-04-15 08:15 | Day surgery (SDC) | payer MEDICAID ==
[~2018-04-15 08:15] MED LIST changes: -CIPR-259 PO; -CLIN150C2 PO; +ERYT-109
[2018-04-15] MEDS ORDERED: LIDOcaine/PRILOcaine 5gm cream TP ONE (09:35)
[2018-04-22] MEDS ORDERED: INSU100V11 SQ (20:30)
[2018-04-22] MEDS ORDERED: ERYT-108 PO (20:31)
== END 2018-04-15 10:41 | disposition home or self-care (01) ==
LOC: WOUND CARE 08:15
PROVIDERS: ATTEND Surgery
DX: E11.621 Type 2 diabetes mellitus with foot ulcer (principal); L97.513 Non-pressure chronic ulcer of other part of right foot with necrosis of muscle; L97.522 Non-pressure chronic ulcer of other part of left foot with fat layer exposed; E11.40 Type 2 diabetes mellitus with diabetic neuropathy, unspecified; E11.10 Type 2 diabetes mellitus with ketoacidosis without coma; E11.65 Type 2 diabetes mellitus with hyperglycemia; I10 Essential (primary) hypertension; K21.0 Gastro-esophageal reflux disease with esophagitis; Z89.431 Acquired absence of right foot; Z79.4 Long term (current) use of insulin
CPT/HCPCS: 11042; 36416; 82948; A6021; A6206; A6446

== ENCOUNTER 2018-04-29 08:30 | Day surgery (SDC) | payer MEDICAID ==
[~2018-04-29 08:30] MED LIST changes: -CALC300T4 PO; +ERYT-108 PO; -ERYT-109; +LINE600T36 PO; -METO-292 PO; -METO10TA3 PO; +METR250T4 PO; -PANT40TA4 PO
[2018-04-29] MEDS ORDERED: LIDOcaine/PRILOcaine 5gm cream TP ONE (09:47)
== END 2018-04-29 11:13 | disposition home or self-care (01) ==
LOC: WOUND CARE 08:30
PROVIDERS: ATTEND Surgery
DX: E11.621 Type 2 diabetes mellitus with foot ulcer (principal); L97.512 Non-pressure chronic ulcer of other part of right foot with fat layer exposed; L97.523 Non-pressure chronic ulcer of other part of left foot with necrosis of muscle; E11.40 Type 2 diabetes mellitus with diabetic neuropathy, unspecified; E11.10 Type 2 diabetes mellitus with ketoacidosis without coma; E11.65 Type 2 diabetes mellitus with hyperglycemia; I10 Essential (primary) hypertension; K21.0 Gastro-esophageal reflux disease with esophagitis; Z89.431 Acquired absence of right foot; Z79.4 Long term (current) use of insulin
CPT/HCPCS: 11042; 15275; 36416; 82948; A6206; A6209; A6222; A6446; Q4131; A6250

== ENCOUNTER 2018-05-07 08:45 | Day surgery (SDC) | payer MEDICAID ==
[~2018-05-07 08:45] MED LIST changes: -LINE600T36 PO
[2018-05-07] MEDS ORDERED: LIDOcaine/PRILOcaine 5gm cream TP ONE (09:38)
== END 2018-05-07 10:55 | disposition home or self-care (01) ==
LOC: WOUND CARE 08:45
PROVIDERS: ATTEND Surgery
DX: E11.621 Type 2 diabetes mellitus with foot ulcer (principal); L97.512 Non-pressure chronic ulcer of other part of right foot with fat layer exposed; L97.523 Non-pressure chronic ulcer of other part of left foot with necrosis of muscle; E11.40 Type 2 diabetes mellitus with diabetic neuropathy, unspecified; E11.10 Type 2 diabetes mellitus with ketoacidosis without coma; E11.65 Type 2 diabetes mellitus with hyperglycemia; I10 Essential (primary) hypertension; K21.0 Gastro-esophageal reflux disease with esophagitis; Z89.431 Acquired absence of right foot; Z79.4 Long term (current) use of insulin
CPT/HCPCS: 11042; 36416; 82948; 97597; A6021; A6206; A6212; A6446

== ENCOUNTER 2018-07-13 14:31 | Inpatient (IN) | payer MEDICAID ==
[~2018-07-13] VITALS: Ht 193 cm; Wt 101.2 kg
[2018-07-13] MEDS ORDERED: normal saline 1000ML IV soln IVB ONE (15:45)
[2018-07-13] MEDS ORDERED: CefTRIAXone 2gm/D5W 50ml 50 ML IV ONE (16:25)
[2018-07-13 16:57] LABS: BASOPHILS % (AUTO) 0.6 % (0-1); EOSINOPHILS # (AUTO) 0.1 X10'3 (0-0.9); EOSINOPHILS % (AUTO) 0.7 % (0-6); HEMATOCRIT 32.3 % (42.0-52.0); LYMPHOCYTES # (AUTO) 0.8 X10'3 (1.1-4.8); MEAN CORPUSCULAR HGB CONC 34.1 % (33.0-36.5); MEAN CORPUSCULAR VOLUME 82.1 FL (78-98); MEAN PLATELET VOLUME 7.8 FL (7.4-10.4); MONOCYTES # (AUTO) 0.6 X10'3 (0-0.9); MONOCYTES % (AUTO) 7.9 % (2-12); NEUTROPHILS # (AUTO) 6.5 X10'3 (1.8-7.7); NEUTROPHILS % (AUTO) 80.8 % (42-75); PLATELET COUNT 438 X10'3 (140-440); RED BLOOD COUNT 3.94 X10'6 (4.70-6.10); RED CELL DISTRIBUTION WIDTH 13.2 % (11.5-14.5)
[2018-07-13] MEDS ORDERED: normal saline 1000ML IV soln IV ONE (17:00)
[2018-07-13 17:12] LABS: ALANINE AMINOTRANSFERASE 20 U/L (12-78); ALBUMIN/GLOBULIN RATIO 0.6 (1.1-1.5); ALKALINE PHOSPHATASE 106 IU/L (46-116); ANION GAP 7 (8-16); ASPARTATE AMINO TRANSFERASE 13 U/L (10-37); BILIRUBIN,TOTAL 0.4 MG/DL (0.1-1.0); BLOOD UREA NITROGEN 17 MG/DL (7-18); BUN/CREATININE RATIO 11.5 (5.4-32.0); CALCIUM 9.4 MG/DL (8.5-10.1); CHLORIDE 95 MMOL/L (99-107); CREATININE 1.48 MG/DL (0.60-1.10); GLUCOSE 439 MG/DL (70-104); SODIUM 133 MMOL/L (135-145); TOTAL CARBON DIOXIDE 31.5 MMOL/L (24-32); TOTAL PROTEIN 7.7 G/DL (6.4-8.2); eGFR 53 ML/MIN
[2018-07-13] MEDS: vancomycin/NS 1 GM ADD-VANTAGE 250 ML IV SCH ×2 (18:05→20:04)
[2018-07-13] MEDS ORDERED: dextrose 50%-water 50ml dispensing syringe IV PRN ×2 (21:45)
[2018-07-13] MEDS ORDERED: MESSAGE TO PHARMACY PO ONE (21:45)
[2018-07-13] MEDS ORDERED: glucagon, human recombinant 1mg kit SUBCUT PRN (21:45)
[2018-07-13] MEDS ORDERED: mag hydrox/Alum hydrox/simeth 30ml oral suspension PO PRN (21:45)
[2018-07-13] MEDS ORDERED: magnesium hydroxide 30ml (MOM) UD suspension PO PRN (21:45)
[2018-07-13] MEDS ORDERED: ondansetron/PF 4mg/2ml inj IV PRN (21:45)
[2018-07-13] MEDS ORDERED: dextrose ORAL solution 15 GM/59 ML bottle PO PRN ×2 (21:45)
[2018-07-13] MEDS: insulin glargine (Lantus) pen - multi-dose SQ SCH (22:24)
[2018-07-13] MEDS: insulin Lispro (HumaLOG) vial - multi-dose SQ SCH (22:28)
[2018-07-13 22:50] VITALS: BP 162/95
[2018-07-14] MEDS: acetaminophen 325mg tablet PO PRN ×3 (00:09→17:11)
[2018-07-14 00:14] LABS: HEMOGLOBIN A1C 12.6 % (4.5-6.2)
[2018-07-14] MEDS: normal saline 1000ml 1,000 ML IV SCH ×3 (00:32→11:43)
[2018-07-14] MEDS ORDERED: pantoprazole 40mg Tablet.DR PO STA (00:47)
[2018-07-14] MEDS: insulin Lispro (HumaLOG) vial - multi-dose SQ SCH ×4 (01:09→19:26)
[2018-07-14 05:19] LABS: BASOPHILS % (AUTO) 0.3 % (0-1); EOSINOPHILS # (AUTO) 0.1 X10'3 (0-0.9); EOSINOPHILS % (AUTO) 1.8 % (0-6); HEMATOCRIT 30.5 % (42.0-52.0); LYMPHOCYTES # (AUTO) 0.7 X10'3 (1.1-4.8); MEAN CORPUSCULAR HEMOGLOBIN 26.7 PG (27.0-31.0); MEAN CORPUSCULAR HGB CONC 32.9 % (33.0-36.5); MEAN CORPUSCULAR VOLUME 81.4 FL (78-98); MEAN PLATELET VOLUME 7.7 FL (7.4-10.4); MONOCYTES # (AUTO) 0.5 X10'3 (0-0.9); MONOCYTES % (AUTO) 7.1 % (2-12); NEUTROPHILS # (AUTO) 5.4 X10'3 (1.8-7.7); NEUTROPHILS % (AUTO) 80.8 % (42-75); PLATELET COUNT 363 X10'3 (140-440); RED BLOOD COUNT 3.75 X10'6 (4.70-6.10); RED CELL DISTRIBUTION WIDTH 13.9 % (11.5-14.5); WHITE BLOOD COUNT 6.7 X10'3 (4.5-11.0)
[2018-07-14 05:26] LABS: ALBUMIN 2.6 G/DL (3.4-5.0); ANION GAP 8 (8-16); BLOOD UREA NITROGEN 13 MG/DL (7-18); BUN/CREATININE RATIO 12.7 (5.4-32.0); CALCIUM 8.4 MG/DL (8.5-10.1); CHLORIDE 102 MMOL/L (99-107); CREATININE 1.02 MG/DL (0.60-1.10); GLUCOSE 288 MG/DL (70-104); POTASSIUM 4.1 MMOL/L (3.5-5.1); SODIUM 138 MMOL/L (135-145); TOTAL CARBON DIOXIDE 27.6 MMOL/L (24-32); eGFR 81 ML/MIN
[2018-07-14 07:00] VITALS: BP 140/89
[2018-07-14] MEDS: CefTRIAXone 2gm/D5W 50ml 50 ML IV SCH (07:53)
[2018-07-14] MEDS: pantoprazole 40mg Tablet.DR PO SCH (07:57)
[2018-07-14 11:00] VITALS: BP 155/95
[2018-07-14 18:00] VITALS: BP 152/88
[2018-07-14] MEDS: lactobacillus rhamnosus 10,000 MMU CELLS/CAPSULE PO SCH (19:49)
[2018-07-14] MEDS: insulin glargine (Lantus) pen - multi-dose SQ SCH (21:19)
[2018-07-15] VITALS: BP 159/94
[2018-07-15] MEDS: normal saline 1000ml 1,000 ML IV SCH (02:24)
[2018-07-15] MEDS ORDERED: VANCOMYCIN LEVEL IV NR (02:30)
[2018-07-15 02:48] LABS: BASOPHILS # (AUTO) 0.1 X10'3 (0-0.2); BASOPHILS % (AUTO) 0.8 % (0-1); EOSINOPHILS # (AUTO) 0.4 X10'3 (0-0.9); EOSINOPHILS % (AUTO) 6.7 % (0-6); HEMATOCRIT 30.8 % (42.0-52.0); LYMPHOCYTES # (AUTO) 1.2 X10'3 (1.1-4.8); LYMPHOCYTES % (AUTO) 17.7 % (21-51); MEAN CORPUSCULAR HEMOGLOBIN 26.5 PG (27.0-31.0); MEAN CORPUSCULAR HGB CONC 32.5 % (33.0-36.5); MEAN CORPUSCULAR VOLUME 81.4 FL (78-98); MEAN PLATELET VOLUME 7.4 FL (7.4-10.4); MONOCYTES # (AUTO) 0.8 X10'3 (0-0.9); MONOCYTES % (AUTO) 12.2 % (2-12); NEUTROPHILS # (AUTO) 4.1 X10'3 (1.8-7.7); NEUTROPHILS % (AUTO) 62.6 % (42-75); PLATELET COUNT 381 X10'3 (140-440); RED BLOOD COUNT 3.79 X10'6 (4.70-6.10); RED CELL DISTRIBUTION WIDTH 13.8 % (11.5-14.5); WHITE BLOOD COUNT 6.6 X10'3 (4.5-11.0)
[2018-07-15 03:01] LABS: ALBUMIN 2.4 G/DL (3.4-5.0); ANION GAP 8 (8-16); BLOOD UREA NITROGEN 8 MG/DL (7-18); BUN/CREATININE RATIO 8.8 (5.4-32.0); CALCIUM 8.2 MG/DL (8.5-10.1); CHLORIDE 100 MMOL/L (99-107); CREATININE 0.91 MG/DL (0.60-1.10); GLUCOSE 288 MG/DL (70-104); POTASSIUM 3.5 MMOL/L (3.5-5.1); SODIUM 135 MMOL/L (135-145); TOTAL CARBON DIOXIDE 26.6 MMOL/L (24-32); eGFR > 90 ML/MIN
[2018-07-15 07:00] VITALS: BP 141/84
[2018-07-15] MEDS: CefTRIAXone 2gm/D5W 50ml 50 ML IV SCH (07:40)
[2018-07-15] MEDS: pantoprazole 40mg Tablet.DR PO SCH (07:40)
[2018-07-15] MEDS: lactobacillus rhamnosus 10,000 MMU CELLS/CAPSULE PO SCH (07:40)
[2018-07-15] MEDS: insulin Lispro (HumaLOG) vial - multi-dose SQ SCH (09:56)
[2018-07-15 11:00] VITALS: BP 146/93
[2018-07-15] MEDS ORDERED: vancomycin inj 1,250 MG in normal saline 250ml IV soln 250 ML IV SCH (15:00)
[2018-07-16] MEDS ORDERED: VANCOMYCIN LEVEL IV NR (14:30)
== END 2018-07-15 16:28 | disposition home or self-care (01) | DRG 349 ==
LOC: ER 14:32 → ED HOLD 21:45 → SUR 3N 22:49
PROVIDERS: ADMIT Internal Medicine; ATTEND Family Medicine
DX: T87.43 Infection of amputation stump, right lower extremity (principal); A40.1 Sepsis due to streptococcus, group B; E10.621 Type 1 diabetes mellitus with foot ulcer; E10.65 Type 1 diabetes mellitus with hyperglycemia; E87.1 Hypo-osmolality and hyponatremia; D63.8 Anemia in other chronic diseases classified elsewhere; G89.29 Other chronic pain; L97.519 Non-pressure chronic ulcer of other part of right foot with unspecified severity; E10.69 Type 1 diabetes mellitus with other specified complication; L03.115 Cellulitis of right lower limb; D64.9 Anemia, unspecified; M54.9 Dorsalgia, unspecified; L97.529 Non-pressure chronic ulcer of other part of left foot with unspecified severity; Y82.8 Other medical devices associated with adverse incidents; E86.0 Dehydration; K21.9 Gastro-esophageal reflux disease without esophagitis; M86.672 Other chronic osteomyelitis, left ankle and foot; Z89.431 Acquired absence of right foot; Z91.19 Patient's noncompliance with other medical treatment and regimen; Z88.5 Allergy status to narcotic agent; Z82.5 Family history of asthma and other chronic lower respiratory diseases; Z82.3 Family history of stroke; Z83.3 Family history of diabetes mellitus; Z83.42 Family history of familial hypercholesterolemia; Z79.4 Long term (current) use of insulin; Y92.89 Other specified places as the place of occurrence of the external cause
CPT/HCPCS: 36415; 73630; 80048; 80053; 80202; 82948; 83036; 85025; 85651; 87040; 87070; 87077; 87186; 93971; 96361; 96365; 96366; 96368; 99285; G0378; J0696; J1815; J2405; J3370; J7030

== ENCOUNTER 2018-11-06 12:10 | Inpatient (IN) | payer MEDICAID ==
[~2018-11-06] VITALS: Ht 195.6 cm; Wt 109.0 kg
[~2018-11-06 12:10] MED LIST changes: -ERYT-108 PO; -METR250T4 PO
[2018-11-06 13:29] LABS: CLARITY,URINE SLIGHTLY CLOUDY (Clear); COLOR,URINE YELLOW (Yellow); GLUCOSE, URINE 500 mg/dl (Neg); KETONES,URINE 15 mg/dl (Neg); LEUKOCYTE ESTERASE ,URINE NEGATIVE (Neg); NITRITES, URINE NEGATIVE (Neg); OCCULT BLOOD,URINE LARGE (Neg); PH,URINE 5.5 (4.8-8.0); PROTEIN,URINE 100 mg/dl (Neg)
[2018-11-06 13:30] LABS: UA COLLECTION TYPE CLN CATCH MIDSTREAM
[2018-11-06 13:33] LABS: BASOPHILS # (AUTO) 0.1 X10'3 (0-0.2); BASOPHILS % (AUTO) 0.4 % (0-1); EOSINOPHILS # (AUTO) 0.2 X10'3 (0-0.9); EOSINOPHILS % (AUTO) 1.1 % (0-6); HEMATOCRIT 30.2 % (42.0-52.0); HEMOGLOBIN 9.9 g/dl (14.0-17.9); LYMPHOCYTES # (AUTO) 0.9 X10'3 (1.1-4.8); LYMPHOCYTES % (AUTO) 4.6 % (21-51); MEAN CORPUSCULAR HEMOGLOBIN 25.5 PG (27.0-31.0); MEAN CORPUSCULAR HGB CONC 32.8 g/dL (33.0-36.5); MEAN CORPUSCULAR VOLUME 77.7 FL (78-98); MEAN PLATELET VOLUME 7.1 FL (7.4-10.4); MONOCYTES # (AUTO) 1.5 X10'3 (0-0.9); MONOCYTES % (AUTO) 7.8 % (2-12); NEUTROPHILS # (AUTO) 16.1 X10'3 (1.8-7.7); NEUTROPHILS % (AUTO) 86.1 % (42-75); PLATELET COUNT 558 X10'3 (140-440); RED BLOOD COUNT 3.89 X10'6 (4.70-6.10); RED CELL DISTRIBUTION WIDTH 14.3 % (11.5-14.5); WHITE BLOOD COUNT 18.7 X10'3 (4.5-11.0)
[2018-11-06 13:42] LABS: WBC,URINE 20-30 /HPF (0-4)
[2018-11-06 13:43] LABS: BACTERIA,URINE FEW /HPF (Neg); MUCUS STRANDS MANY /LPF (Neg); SQUAMOUS EPITHELIAL CELL,UR MODERATE /LPF (FEW); WBC CLUMPS,URINE FEW /HPF (NEGATIVE)
[2018-11-06 13:53] LABS: INR 1.1 INR; PARTIAL THROMBOPLASTIN TIME 30 SECONDS (22-32); PROTHROMBIN TIME 11.1 SECONDS (9.0-12.0)
[2018-11-06 14:00] LABS: ALANINE AMINOTRANSFERASE 14 U/L (12-78); ALBUMIN 2.8 G/DL (3.4-5.0); ALBUMIN/GLOBULIN RATIO 0.5 (1.1-1.5); ALKALINE PHOSPHATASE 129 IU/L (46-116); ANION GAP 9 (8-16); ASPARTATE AMINO TRANSFERASE 10 U/L (10-37); BLOOD UREA NITROGEN 21 MG/DL (7-18); BUN/CREATININE RATIO 14.3 (5.4-32.0); CALCIUM 9.4 MG/DL (8.5-10.1); CHLORIDE 98 MMOL/L (99-107); CREATININE 1.47 MG/DL (0.60-1.10); GLUCOSE 254 MG/DL (70-104); MAGNESIUM 1.6 MG/DL (1.5-2.4); POTASSIUM 3.6 MMOL/L (3.5-5.1); SODIUM 136 MMOL/L (135-145); TOTAL CARBON DIOXIDE 29.2 MMOL/L (24-32); TOTAL PROTEIN 8.3 G/DL (6.4-8.2); eGFR 53 ML/MIN
[2018-11-06] MEDS ORDERED: vancomycin/NS 1 GM ADD-VANTAGE 250 ML IV ONE (14:00)
[2018-11-06] MEDS ORDERED: piperacillin/tazo 3.375gm/50ml 50 ML IV ONE (14:00)
[2018-11-06 14:02] LABS: BILIRUBIN,TOTAL 0.6 MG/DL (0.1-1.0); PLATELET ESTIMATE INCREASED; TOTAL CELLS COUNTED 100
[2018-11-06 14:03] LABS: HYPOCHROMASIA 1+; MICROCYTOSIS 1+; POLYCHROMASIA FEW; ROULEAUX 1+; TOXIC GRANULATION 1+; TOXIC VACUOLATION FEW
[2018-11-06] MEDS ORDERED: TETanus/Pertussis (Acell)/Diphther VAC/PF (Tdap-Adult) 0.5ml syringe IM ONE (14:30)
[2018-11-06] MEDS ORDERED: normal saline 1000ML IV soln IV ONE (14:30)
[2018-11-06] MEDS ORDERED: acetaminophen 325mg tablet PO PRN ×2 (16:05)
[2018-11-06] MEDS ORDERED: MESSAGE TO PHARMACY PO ONE (16:05)
[2018-11-06] MEDS ORDERED: mag hydrox/Alum hydrox/simeth 30ml oral suspension PO PRN (16:05)
[2018-11-06] MEDS ORDERED: magnesium hydroxide 30ml (MOM) UD suspension PO PRN (16:05)
[2018-11-06] MEDS ORDERED: dextrose 50%-water 50ml dispensing syringe IV PRN ×2 (16:05)
[2018-11-06] MEDS ORDERED: glucagon, human recombinant 1mg kit SUBCUT PRN (16:05)
[2018-11-06] MEDS ORDERED: dextrose ORAL solution 15 GM/59 ML bottle PO PRN ×2 (16:05)
[2018-11-06] MEDS: normal saline 1000ml 1,000 ML IV SCH (17:30)
[2018-11-06] MEDS ORDERED: insulin glargine (Lantus) pen - multi-dose SQ SCH (21:00)
[2018-11-06] MEDS: insulin glargine (Lantus) pen - multi-dose SQ SCH (22:30)
[2018-11-06] MEDS: vancomycin/NS 1 GM ADD-VANTAGE 250 ML IV SCH (22:32)
[2018-11-07] VITALS (18 sets, daily range): BP systolic 97–166; BP diastolic 62–97
[2018-11-07] MEDS: piperacillin/tazo 4.5gm/100ml 100 ML IV SCH ×3 (00:24→19:18)
[2018-11-07] MEDS: normal saline 1000ml 1,000 ML IV SCH ×3 (01:58→16:16)
--- NOTE | 2018-11-07 03:42 | NUR ---
PT PLACED ON HOSPITAL BED FOR COMFORT
[2018-11-07 06:00] LABS: URINE AMPHETAMINE SCREEN NEGATIVE (Neg); URINE BARBITUATE SCREEN NEGATIVE (Neg); URINE BENZODIAZEPINES SCREEN NEGATIVE (Neg); URINE CANNABINOID SCREEN NEGATIVE (Neg); URINE COCAINE SCREEN NEGATIVE (Neg); URINE METHADONE SCREEN NEGATIVE (Neg); URINE OPIATE SCREEN NEGATIVE (Neg); URINE PHENCYCLIDINE SCREEN NEGATIVE (Neg)
[2018-11-07] MEDS: vancomycin/NS 1 GM ADD-VANTAGE 250 ML IV SCH ×2 (06:50→14:00)
--- NOTE | 2018-11-07 06:54 | NUR ---
RECEIVED REPORT FROM SHAHRIAR CARLSON
[2018-11-07] MEDS: enoxaparin 40mg/0.4ml syringe SUBCUT SCH (08:00)
[2018-11-07] MEDS: insulin glargine (Lantus) pen - multi-dose SQ SCH ×2 (08:00→21:26)
[2018-11-07] MEDS ORDERED: ringers solution, lacted 1,000 ML IV SCH (09:27)
[2018-11-07] MEDS ORDERED: morphine 4 MG/ML inj SYRINge IV PRN ×2 (09:30)
[2018-11-07] MEDS ORDERED: proCHLORperazine 10 MG/2 ml inj IV PRN (09:30)
[2018-11-07] MEDS ORDERED: ondansetron/PF 4mg/2ml inj IV PRN (09:30)
[2018-11-07] MEDS ORDERED: meperidine/PF 25mg/ml syringe IV PRN ×3 (09:30)
[2018-11-07 09:58] LABS: BASOPHILS % (AUTO) 0.3 % (0-1); EOSINOPHILS # (AUTO) 0.2 X10'3 (0-0.9); HEMATOCRIT 25.6 % (42.0-52.0); HEMOGLOBIN 8.3 g/dl (14.0-17.9); LYMPHOCYTES % (AUTO) 8.9 % (21-51); MEAN CORPUSCULAR HEMOGLOBIN 25.3 PG (27.0-31.0); MEAN CORPUSCULAR HGB CONC 32.2 g/dL (33.0-36.5); MEAN CORPUSCULAR VOLUME 78.6 FL (78-98); MEAN PLATELET VOLUME 7.4 FL (7.4-10.4); MONOCYTES # (AUTO) 1.5 X10'3 (0-0.9); NEUTROPHILS # (AUTO) 8.6 X10'3 (1.8-7.7); NEUTROPHILS % (AUTO) 75.8 % (42-75); PLATELET COUNT 449 X10'3 (140-440); RED BLOOD COUNT 3.26 X10'6 (4.70-6.10); RED CELL DISTRIBUTION WIDTH 14.2 % (11.5-14.5); WHITE BLOOD COUNT 11.4 X10'3 (4.5-11.0)
--- NOTE | 2018-11-07 10:00 | NUR ---
eventhough pt has an elevated bg, pt is npo, therefore, pt is not to receive insulin at this time, continue to monitor bg
[2018-11-07 10:04] LABS: ALBUMIN 2.3 G/DL (3.4-5.0); ANION GAP 14 (8-16); BLOOD UREA NITROGEN 17 MG/DL (7-18); BUN/CREATININE RATIO 15.6 (5.4-32.0); CALCIUM 8.5 MG/DL (8.5-10.1); CHLORIDE 100 MMOL/L (99-107); CREATININE 1.09 MG/DL (0.60-1.10); GLUCOSE 254 MG/DL (70-104); POTASSIUM 3.7 MMOL/L (3.5-5.1); SODIUM 136 MMOL/L (135-145); TOTAL CARBON DIOXIDE 21.6 MMOL/L (24-32); eGFR 75 ML/MIN
--- NOTE | 2018-11-07 10:38 | NUR ---
PHOTOS OF PTS BILATERAL FEET IN CHART
--- NOTE | 2018-11-07 12:18 | NUR ---
or is on their way up to get pt and take him to surgery, pt bg is still elevated but pt is npo, continue to monitor
[2018-11-07] MEDS ORDERED: desflurane 240ml liquid inh. IH ONE (12:37)
[2018-11-07] MEDS ORDERED: fentaNYL/PF 50MCG/1 ML 2ML syringe ONE (12:42)
[2018-11-07] MEDS ORDERED: MIDAZolam 5mg/5ml vial ONE (12:42)
[2018-11-07] MEDS ORDERED: propofol inj 20 ML IV ONE (12:43)
[2018-11-07] MEDS ORDERED: LIDOcaine 1%/PF 5ML 10 MG/ML VIAL ONE (12:43)
[2018-11-07] MEDS ORDERED: ROPIVAcaine 0.5% (5mg/ml) 30ml vial ONE (12:44)
[2018-11-07] MEDS ORDERED: dexamethasone sod phosphate 4mg/ml inj. ONE (12:45)
[2018-11-07] MEDS ORDERED: ceFAZolin 1000mg inj ONE ×2 (13:06)
--- NOTE | 2018-11-07 13:08 | NUR ---
DM Consult: A1C 11.6. Pt admit w/ non-healing wounds, bilateral foot ulcers w/ cellulitis, and hx T1DM. Hx R TMA going to OR for surgery today per EMR. Pt will need DM/high protein ed once stable post-op. Will monitor for additional protein needs for wound healing. Rec; 1. continue carb controlled diet 2. monitor for ONS needs 3. wt per rx 4. MVI for wounds 5. DM/^protein eds once stable prior to d/c Addendum: 11/07/18 at [address] Amended: Links added.
[2018-11-07] MEDS ORDERED: VANCOMYCIN LEVEL IV NR (13:30)
[2018-11-07] MEDS ORDERED: ondansetron/PF 4mg/2ml inj ONE (14:04)
--- NOTE | 2018-11-07 14:20 | NUR ---
Received from OR via bed, accompanied by Anesthesiologist. Report received. Initial physical assessment done and recorded.
[2018-11-07] MEDS ORDERED: insulin regular, human 10 units/0.1 ml syringe SQ ONE (14:25)
[2018-11-07] MEDS: oxyCODONE/APAP 5-325mg tablet PO PRN (15:04)
--- NOTE | 2018-11-07 15:30 | NUR ---
Discharge criteria met, report to receiving floor. Transferred to room in stable condition.
--- NOTE | 2018-11-07 15:30 | NUR ---
received report from nano bhatti
--- NOTE | 2018-11-07 15:37 | NUR ---
pt arrived on floor on [place] bed awake and drowsy
[2018-11-07] MEDS ORDERED: vancomycin/NS 1 GM ADD-VANTAGE 250 ML IV SCH (16:06)
--- NOTE | 2018-11-07 18:19 | NUR ---
GAVE REPORT TO SHAHRIAR GONZALES
[2018-11-08] MEDS: vancomycin inj 1,250 MG in normal saline 250ml IV soln 250 ML IV SCH ×4 (00:13→23:41)
[2018-11-08 02:00] VITALS: BP 122/71
[2018-11-08] MEDS: piperacillin/tazo 4.5gm/100ml 100 ML IV SCH ×3 (02:35→17:28)
--- NOTE | 2018-11-08 06:20 | NUR ---
Patient in room ORTHO 4014. I have received report from SHAHRIAR Mckeon and had the opportunity to ask questions and assume patient care.
--- NOTE | 2018-11-08 06:25 | NUR ---
Patient in room ORTHO 4014. I have received report from Kathryn and had the opportunity to ask questions and assume patient care.
[2018-11-08 06:31] LABS: BASOPHILS # (AUTO) 0.1 X10'3 (0-0.2); BASOPHILS % (AUTO) 0.3 % (0-1); EOSINOPHILS % (AUTO) 0.3 % (0-6); HEMATOCRIT 28.4 % (42.0-52.0); HEMOGLOBIN 9.2 g/dl (14.0-17.9); LYMPHOCYTES # (AUTO) 1.2 X10'3 (1.1-4.8); LYMPHOCYTES % (AUTO) 7.1 % (21-51); MEAN CORPUSCULAR HEMOGLOBIN 25.2 PG (27.0-31.0); MEAN CORPUSCULAR HGB CONC 32.3 g/dL (33.0-36.5); MEAN PLATELET VOLUME 7.3 FL (7.4-10.4); MONOCYTES # (AUTO) 1.9 X10'3 (0-0.9); MONOCYTES % (AUTO) 11.3 % (2-12); NEUTROPHILS # (AUTO) 13.5 X10'3 (1.8-7.7); PLATELET COUNT 551 X10'3 (140-440); RED BLOOD COUNT 3.64 X10'6 (4.70-6.10); RED CELL DISTRIBUTION WIDTH 14.4 % (11.5-14.5); WHITE BLOOD COUNT 16.7 X10'3 (4.5-11.0)
[2018-11-08 06:34] LABS: ANION GAP 11 (8-16); BLOOD UREA NITROGEN 20 MG/DL (7-18); BUN/CREATININE RATIO 16.8 (5.4-32.0); CALCIUM 8.2 MG/DL (8.5-10.1); CHLORIDE 101 MMOL/L (99-107); CREATININE 1.19 MG/DL (0.60-1.10); GLUCOSE 251 MG/DL (70-104); POTASSIUM 4.2 MMOL/L (3.5-5.1); SODIUM 134 MMOL/L (135-145); TOTAL CARBON DIOXIDE 22.4 MMOL/L (24-32); eGFR 68 ML/MIN
[2018-11-08] MEDS: insulin glargine (Lantus) pen - multi-dose SQ SCH ×2 (08:00→20:11)
[2018-11-08] MEDS: enoxaparin 40mg/0.4ml syringe SUBCUT SCH (08:00)
[2018-11-08] MEDS: normal saline 1000ml 1,000 ML IV SCH ×2 (08:01→18:42)
[2018-11-08] MEDS: insulin Lispro (HumaLOG) vial - multi-dose SQ SCH ×3 (09:15→18:44)
--- NOTE | 2018-11-08 12:05 | NUR ---
Student Medication Administration:For this medication-pass time frame 8616-3698, all medications were reviewed, administered and documented per hospital policy by Morro Hennessy. Student documentation:I have reviewed and agree with all interventions, assessments performed and documented by Morro Hennessy.
--- NOTE | 2018-11-08 12:15 | NUR ---
Vital signs charted at 1107 were documented in error
--- NOTE | 2018-11-08 13:00 | NUR ---
Problems reprioritized. Patient report given, questions answered & plan of care reviewed with
[2018-11-08] MEDS: ondansetron/PF 4mg/2ml inj IV PRN ×2 (14:14→20:23)
[2018-11-08] MEDS: oxyCODONE/APAP 5-325mg tablet PO PRN (14:15)
--- NOTE | 2018-11-08 14:32 | NUR ---
F/u: Pt/family seen by HAYDEE for written/verbal DM/high protein eds. Pt declined DM ed but was okay to receive protein ed; RD contact information provided. Pt reports nausea r/t pain s/p L BKA but agrees to try ensure high protein TIDWM; MD and dietary notified. LBM 11/05. Will monitor for additional protein needs post-op. Addendum: 11/08/18 at [address] Amended: Links added.
[2018-11-08] MEDS ORDERED: oxyCODONE/APAP 10/325mg tablet PO ONE (15:10)
--- NOTE | 2018-11-08 15:15 | NUR ---
Pt medicated with Percocet 5mg with no relief. Pt refused pain medication offered multiple times throughout this shift. TC placed to Dr. Crowley who ordered Percocet 10mg po x1 now, then Percocet 10mg 2 tabs po q4h prn. Gave pt now dose. Will continue to monitor pain.
[2018-11-08] MEDS ORDERED: HYDROmorphone inj. 0.5 MG/0.5 ML DISP.SYRIN IV ONE (17:45)
[2018-11-08 18:00] VITALS: BP 146/90
--- NOTE | 2018-11-08 18:17 | NUR ---
RECEIVED REPORT FROM ROSALBA BESS AND ASSUMED PATIENT CARE
[2018-11-08] MEDS: oxyCODONE/APAP 10/325mg tablet PO PRN ×2 (20:07→23:41)
[2018-11-08] MEDS ORDERED: VANCOMYCIN LEVEL IV NR (23:30)
[2018-11-09] MEDS ORDERED: diphenhydrAMINE 50 mg/ml inj IV ONE (01:05)
--- NOTE | 2018-11-09 01:13 | NUR ---
PATIENT COMPLAINS OF INCREASED ITCHING OVER THE LAST FEW HOURS GETTING WORSE NOW, AND SUDDEN ONSET OF FEELING FLUSHED. PATIENT STATES HE CANT TAKE BENADRYL IT MADE HIM FEEL "RESTLESS" ONCE BEFORE, AND REQUESTING CLARITIN TO BE ORDERED. DR. ACKERMAN CALLED AND WAS NOTIFIED OF THE SITUATION INCLUDING PATIENTS STATED ADVERSE REACTION TO BENADRYL AND REQUEST FOR CLARITIN. DR. ACKERMAN ORDERED A ONE TIME IV DOSE OF BENADRYL TO BE GIVEN WHICH THE PATIENT IS REFUSING TO TAKE. EDUCATED PATIENT ON SIGNS AND SYMPTOMS OF WORSENING ALLERGIC REACTION AND TOLD HIM TO LET ME KNOW IF HE FEELS WORSE. WILL CONTINUE TO CLOSELY MONITOR PATIENT.
[2018-11-09] MEDS: ondansetron/PF 4mg/2ml inj IV PRN ×2 (02:11→08:01)
[2018-11-09] MEDS: piperacillin/tazo 4.5gm/100ml 100 ML IV SCH (02:11)
[2018-11-09] MEDS: normal saline 1000ml 1,000 ML IV SCH (04:01)
[2018-11-09] MEDS: oxyCODONE/APAP 10/325mg tablet PO PRN ×2 (04:38→10:04)
--- NOTE | 2018-11-09 06:20 | NUR ---
Patient in room ORTHO 4014. I have received report from Kathryn and had the opportunity to ask questions and assume patient care.
--- NOTE | 2018-11-09 06:24 | NUR ---
REPORT GIVEN TO ROSALBA BESS
[2018-11-09 06:53] LABS: BASOPHILS # (AUTO) 0.1 X10'3 (0-0.2); BASOPHILS % (AUTO) 0.5 % (0-1); EOSINOPHILS # (AUTO) 0.3 X10'3 (0-0.9); EOSINOPHILS % (AUTO) 2.3 % (0-6); HEMATOCRIT 27.3 % (42.0-52.0); HEMOGLOBIN 8.9 g/dl (14.0-17.9); LYMPHOCYTES # (AUTO) 1.5 X10'3 (1.1-4.8); LYMPHOCYTES % (AUTO) 13.6 % (21-51); MEAN CORPUSCULAR HEMOGLOBIN 25.6 PG (27.0-31.0); MEAN CORPUSCULAR HGB CONC 32.8 g/dL (33.0-36.5); MONOCYTES # (AUTO) 1.5 X10'3 (0-0.9); MONOCYTES % (AUTO) 14.3 % (2-12); NEUTROPHILS # (AUTO) 7.5 X10'3 (1.8-7.7); NEUTROPHILS % (AUTO) 69.3 % (42-75); PLATELET COUNT 481 X10'3 (140-440); RED BLOOD COUNT 3.49 X10'6 (4.70-6.10); WHITE BLOOD COUNT 10.8 X10'3 (4.5-11.0)
[2018-11-09 07:00] VITALS: BP 146/89
[2018-11-09 07:04] LABS: ALBUMIN 2.2 G/DL (3.4-5.0); ANION GAP 8 (8-16); BLOOD UREA NITROGEN 13 MG/DL (7-18); BUN/CREATININE RATIO 12.9 (5.4-32.0); CALCIUM 8.9 MG/DL (8.5-10.1); CHLORIDE 105 MMOL/L (99-107); CREATININE 1.01 MG/DL (0.60-1.10); GLUCOSE 84 MG/DL (70-104); POTASSIUM 3.1 MMOL/L (3.5-5.1); SODIUM 141 MMOL/L (135-145); TOTAL CARBON DIOXIDE 28.1 MMOL/L (24-32); eGFR 82 ML/MIN
[2018-11-09] MEDS: enoxaparin 40mg/0.4ml syringe SUBCUT SCH (07:15)
[2018-11-09] MEDS: vancomycin inj 1,250 MG in normal saline 250ml IV soln 250 ML IV SCH ×2 (07:19→08:03)
[2018-11-09] MEDS ORDERED: loratadine 10mg tablet PO SCH (08:27)
[2018-11-09] MEDS ORDERED: loratadine 10mg tablet PO ONE ×2 (10:35→11:05)
--- NOTE | 2018-11-09 11:58 | NUR ---
Student Medication Administration:For this medication-pass time frame [id number], all medications were reviewed, administered and documented per hospital policy by Morro Hennessy. Student documentation:I have reviewed and agree with all interventions, assessments performed and documented by Morro Hennessy.
--- NOTE | 2018-11-09 12:35 | NUR ---
Problems reprioritized. Patient report given, questions answered & plan of care reviewed with Diann.
--- NOTE | 2018-11-09 13:15 | NUR ---
Received discharge orders from CASTRO Syed. Pt to get Percocet RX written by Holly filled by bedside [facility]. Mitch picked up RX to fill. Reviewed discharge instructions. Dc'd saline lock from LFA with cannula intact. No redness/swelling at insertion site. Applied 4x4 gauze and bandaid over insertion site. Dressing change to right foot and left BKA per Holly Escobar. Removed old dressing from right foot. Small amount of yellow drainage on old dressing. Applied Xeroform gauze from wounds and applied 4x4 gauze and wrapped in Faith wrap. Surgical dressing removed from Left BKA. Small amount of serosanguineous drainage on stump sock. Removed gauze wrap from left stump. Removed Xeroform gauze from incision site. Counted 32 maggie along stump incision site. No redness noted on stump incision site. Moderate amount of swelling in left stump starting approximately 1/[address] down left thigh to left stump. Pt stated he felt much relief after old dressing removed. Pt stated his pain rating went down from 10 to 2. Xeroform applied to left stump per CASTRO Syed. 4x4's applied along stump incision site. Covered with Faith wrap. Sales And Marketing Professional applied new stump sock. Reviewed pt discharge instructions with pt and increased protein diet, check blood glucose four times a day, dressing care to left stump, Keep left stump elevated, prevent falls and call Dr. Hortencia Soriano if any questions arise. Informed on s/s of infection to left stump and monitor temp as needed if feeling warm or lethargic. Transported via w/c to [facility] for ride via private vehicle to home.
== END 2018-11-09 13:15 | disposition home or self-care (01) | DRG 710 ==
LOC: ER 12:11 → ED HOLD 16:10 → ORTHO 4S 11-07 07:43
PROVIDERS: ADMIT Hospitalist; ATTEND Family Medicine
PROC: 3E0T3BZ Introduction of Anesthetic Agent into Peripheral Nerves and Plexi, Percutaneous Approach (ICD-10-PCS; 2018-11-07)
PROC: 0Y6J0Z3 Detachment at Left Lower Leg, Low, Open Approach (ICD-10-PCS; principal; 2018-11-07 12:37)
DX: A41.9 Sepsis, unspecified organism (principal); I96 Gangrene, not elsewhere classified; E10.621 Type 1 diabetes mellitus with foot ulcer; E10.65 Type 1 diabetes mellitus with hyperglycemia; E10.69 Type 1 diabetes mellitus with other specified complication; E10.52 Type 1 diabetes mellitus with diabetic peripheral angiopathy with gangrene; D63.8 Anemia in other chronic diseases classified elsewhere; L03.032 Cellulitis of left toe; M86.8X7 Other osteomyelitis, ankle and foot; G89.29 Other chronic pain; R01.1 Cardiac murmur, unspecified; L97.529 Non-pressure chronic ulcer of other part of left foot with unspecified severity; B96.5 Pseudomonas (aeruginosa) (mallei) (pseudomallei) as the cause of diseases classified elsewhere; L97.519 Non-pressure chronic ulcer of other part of right foot with unspecified severity; B95.1 Streptococcus, group B, as the cause of diseases classified elsewhere; M54.9 Dorsalgia, unspecified; E78.00 Pure hypercholesterolemia, unspecified; Z82.49 Family history of ischemic heart disease and other diseases of the circulatory system; Z83.3 Family history of diabetes mellitus; Z82.5 Family history of asthma and other chronic lower respiratory diseases; Z82.3 Family history of stroke; Z79.82 Long term (current) use of aspirin; Z91.19 Patient's noncompliance with other medical treatment and regimen; Z88.6 Allergy status to analgesic agent; Z88.8 Allergy status to other drugs, medicaments and biological substances
CPT/HCPCS: 36415; 71045; 73630; 80048; 80053; 80202; 80305; 81001; 82948; 83036; 83605; 83735; 84145; 85025; 85610; 85730; 87040; 87070; 87077; 87088; 87186; 90715; 93005; 96365; 96368; 99285; A6222; A6449; A7000; G0378; J0690; J1100; J1170; J1650; J1815; J2001; J2250; J2405; J2543; J2704; J2795; J3010; J3370; J7030; J7120

== ENCOUNTER 2019-01-21 14:30 | Outpatient (CLI) | payer MEDICAID ==
[~2019-01-21] VITALS: Ht 195.6 cm; Wt 99.8 kg
[2019-01-21 15:30] LABS: BASOPHILS # (AUTO) 0.1 X10'3 (0-0.2); BASOPHILS % (AUTO) 0.8 % (0-1); EOSINOPHILS # (AUTO) 0.8 X10'3 (0-0.9); LYMPHOCYTES % (AUTO) 22.7 % (21-51); MEAN CORPUSCULAR HEMOGLOBIN 26.2 PG (27.0-31.0); MEAN CORPUSCULAR HGB CONC 33.3 g/dL (33.0-36.5); MEAN CORPUSCULAR VOLUME 78.6 FL (78-98); MEAN PLATELET VOLUME 6.8 FL (7.4-10.4); MONOCYTES # (AUTO) 0.9 X10'3 (0-0.9); MONOCYTES % (AUTO) 10.2 % (2-12); NEUTROPHILS # (AUTO) 4.9 X10'3 (1.8-7.7); NEUTROPHILS % (AUTO) 57.3 % (42-75); PRE OP HEMATOCRIT 34.7 % (42.0-52.0); PRE OP HEMOGLOBIN 11.5 g/dL (14.0-17.9); PRE OP PLATELET COUNT 451 X10'3 (140-440); RED BLOOD COUNT 4.41 X10'6 (4.70-6.10); RED CELL DISTRIBUTION WIDTH 16.4 % (11.5-14.5)
[2019-01-21 15:33] LABS: ALBUMIN 3.2 G/DL (3.4-5.0); ALBUMIN/GLOBULIN RATIO 0.7 (1.1-1.5); ALKALINE PHOSPHATASE 110 IU/L (46-116); BLOOD UREA NITROGEN 15 MG/DL (7-18); BUN/CREATININE RATIO 15.5 (5.4-32.0); CALCIUM 9.8 MG/DL (8.5-10.1); CHLORIDE 104 MMOL/L (99-107); CREATININE 0.97 MG/DL (0.60-1.10); PRE OP ALT 17 U/L (30-65); PRE OP ANION GAP 1 (8-16); PRE OP AST 12 U/L (10-37); PRE OP BILIRUB, TOTAL 0.2 MG/DL (0.0-1.0); PRE OP GLUCOSE 79 MG/DL (70-104); PRE OP POTASSIUM 3.9 MMOL/L (3.4-5.1); PRE OP SODIUM 138 MMOL/L (135-145); TOTAL PROTEIN 7.8 G/DL (6.4-8.2); eGFR 86 ML/MIN
[2019-01-21] MEDS ORDERED: PANT-47 PO (15:40)
[2019-01-21 15:53] LABS: HEMOGLOBIN A1C 10.8 % (4.5-6.2)
[2019-01-25] MEDS ORDERED: famotidine 20mg tablet PO ONE (05:30)
[2019-01-25] MEDS ORDERED: ringers solution, lacted 1,000 ML IV SCH (05:30)
== END 2019-01-21 23:59 | disposition home or self-care (01) ==
LOC: PRE-OP 14:30 → EDSTATUS 01-25 07:30
PROVIDERS: ATTEND Orthopaedic Surgery
DX: Z01.818 Encounter for other preprocedural examination (principal); T87.81 Dehiscence of amputation stump; Z89.512 Acquired absence of left leg below knee; Z88.5 Allergy status to narcotic agent; Y83.8 Other surgical procedures as the cause of abnormal reaction of the patient, or of later complication, without mention of misadventure at the time of the procedure
CPT/HCPCS: 36415; 80053; 83036; 85025

== ENCOUNTER 2020-01-27 10:05 | Day surgery (SDC) | payer MEDICAID ==
[~2020-01-27 10:05] MED LIST changes: +PANT-47 PO
[2020-02-06] MEDS ORDERED: ATOR10TA PO (10:03)
[2020-02-06] MEDS ORDERED: VANC1.5P9 IV (10:03)
[2020-02-06] MEDS ORDERED: NOR5T PO (10:04)
[2020-02-06] MEDS ORDERED: LACT1CAP26 PO (10:04)
[2020-02-06] MEDS ORDERED: METO-395 PO (10:04)
[2020-02-06] MEDS ORDERED: LISI-642 PO (10:04)
[2020-02-06] MEDS ORDERED: INSU100V11 SQ (10:04)
== END 2020-01-27 12:12 | disposition home or self-care (01) ==
LOC: WOUND CARE 10:05
PROVIDERS: ATTEND Nurse Practitioner
DX: T87.89 Other complications of amputation stump (principal); T81.31XD Disruption of external operation (surgical) wound, not elsewhere classified, subsequent encounter; E11.621 Type 2 diabetes mellitus with foot ulcer; L97.513 Non-pressure chronic ulcer of other part of right foot with necrosis of muscle; E11.65 Type 2 diabetes mellitus with hyperglycemia; K21.9 Gastro-esophageal reflux disease without esophagitis; Z89.512 Acquired absence of left leg below knee; Z89.421 Acquired absence of other right toe(s); Y83.8 Other surgical procedures as the cause of abnormal reaction of the patient, or of later complication, without mention of misadventure at the time of the procedure; Y92.89 Other specified places as the place of occurrence of the external cause; Y83.5 Amputation of limb(s) as the cause of abnormal reaction of the patient, or of later complication, without mention of misadventure at the time of the procedure
CPT/HCPCS: 36416; 82948; 87070; 87075; 87077; 87102; 87186; 97597

== ENCOUNTER 2020-02-10 13:04 | Outpatient (CLI) | payer MEDICAID ==
[~2020-02-10 13:04] MED LIST changes: +ATOR10TA PO; +DAPT500V6 IV; +LACT1CAP26 PO; +LISI-642 PO; +METO-395 PO; +NOR5T PO
== END 2020-02-10 14:21 | disposition home or self-care (01) ==
LOC: WOUND CARE 13:04 → EDSTATUS 13:20 → WOUND CARE 14:21
PROVIDERS: ATTEND Nurse Practitioner
DX: T87.89 Other complications of amputation stump (principal); E11.621 Type 2 diabetes mellitus with foot ulcer; L97.513 Non-pressure chronic ulcer of other part of right foot with necrosis of muscle; T81.31XD Disruption of external operation (surgical) wound, not elsewhere classified, subsequent encounter; E11.22 Type 2 diabetes mellitus with diabetic chronic kidney disease; I12.9 Hypertensive chronic kidney disease with stage 1 through stage 4 chronic kidney disease, or unspecified chronic kidney disease; N18.3 Chronic kidney disease, stage 3 (moderate); E11.69 Type 2 diabetes mellitus with other specified complication; M86.671 Other chronic osteomyelitis, right ankle and foot; E11.65 Type 2 diabetes mellitus with hyperglycemia; E11.51 Type 2 diabetes mellitus with diabetic peripheral angiopathy without gangrene; M79.89 Other specified soft tissue disorders; E78.5 Hyperlipidemia, unspecified; E78.00 Pure hypercholesterolemia, unspecified; K21.9 Gastro-esophageal reflux disease without esophagitis; Z79.4 Long term (current) use of insulin; Z89.512 Acquired absence of left leg below knee; Z89.421 Acquired absence of other right toe(s); Z88.5 Allergy status to narcotic agent; Y83.8 Other surgical procedures as the cause of abnormal reaction of the patient, or of later complication, without mention of misadventure at the time of the procedure; Y83.5 Amputation of limb(s) as the cause of abnormal reaction of the patient, or of later complication, without mention of misadventure at the time of the procedure
CPT/HCPCS: 36416; 82948; G0463

== ENCOUNTER 2020-02-15 11:04 | Outpatient (CLI) | payer MEDICAID | END 2020-02-15 12:25 | disposition home or self-care (01) | LOC: WOUND CARE 11:04 → EDSTATUS 11:20 → WOUND CARE 12:25 | PROVIDERS: ATTEND Nurse Practitioner | DX: T87.81 Dehiscence of amputation stump (principal); E11.621 Type 2 diabetes mellitus with foot ulcer; L97.513 Non-pressure chronic ulcer of other part of right foot with necrosis of muscle; E11.22 Type 2 diabetes mellitus with diabetic chronic kidney disease; I12.9 Hypertensive chronic kidney disease with stage 1 through stage 4 chronic kidney disease, or unspecified chronic kidney disease; N18.3 Chronic kidney disease, stage 3 (moderate); E11.69 Type 2 diabetes mellitus with other specified complication; M86.671 Other chronic osteomyelitis, right ankle and foot; E11.65 Type 2 diabetes mellitus with hyperglycemia; E11.51 Type 2 diabetes mellitus with diabetic peripheral angiopathy without gangrene; M79.89 Other specified soft tissue disorders; E78.5 Hyperlipidemia, unspecified; E78.00 Pure hypercholesterolemia, unspecified; K21.9 Gastro-esophageal reflux disease without esophagitis; Z79.4 Long term (current) use of insulin; Z89.512 Acquired absence of left leg below knee; Z89.421 Acquired absence of other right toe(s); Z88.5 Allergy status to narcotic agent; Y83.5 Amputation of limb(s) as the cause of abnormal reaction of the patient, or of later complication, without mention of misadventure at the time of the procedure | CPT/HCPCS: 82948; 93922; 93926; 97597 ==

== ENCOUNTER 2020-02-24 11:40 | Day surgery (SDC) | payer MEDICAID | END 2020-02-24 13:25 | disposition home or self-care (01) | LOC: WOUND CARE 11:40 | PROVIDERS: ATTEND Nurse Practitioner | DX: T87.81 Dehiscence of amputation stump (principal); E11.621 Type 2 diabetes mellitus with foot ulcer; L97.513 Non-pressure chronic ulcer of other part of right foot with necrosis of muscle; E11.22 Type 2 diabetes mellitus with diabetic chronic kidney disease; I12.9 Hypertensive chronic kidney disease with stage 1 through stage 4 chronic kidney disease, or unspecified chronic kidney disease; N18.3 Chronic kidney disease, stage 3 (moderate); E11.69 Type 2 diabetes mellitus with other specified complication; M86.671 Other chronic osteomyelitis, right ankle and foot; E11.65 Type 2 diabetes mellitus with hyperglycemia; E11.51 Type 2 diabetes mellitus with diabetic peripheral angiopathy without gangrene; M79.89 Other specified soft tissue disorders; E78.5 Hyperlipidemia, unspecified; E78.00 Pure hypercholesterolemia, unspecified; K21.9 Gastro-esophageal reflux disease without esophagitis; Z79.4 Long term (current) use of insulin; Z89.512 Acquired absence of left leg below knee; Z89.421 Acquired absence of other right toe(s); Z88.5 Allergy status to narcotic agent; Y83.5 Amputation of limb(s) as the cause of abnormal reaction of the patient, or of later complication, without mention of misadventure at the time of the procedure | CPT/HCPCS: 36416; 82948; 97597 ==

== ENCOUNTER 2020-03-01 10:30 | Day surgery (SDC) | payer MEDICAID | END 2020-03-01 11:46 | disposition home or self-care (01) | LOC: WOUND CARE 10:30 | PROVIDERS: ATTEND Nurse Practitioner | DX: T81.31XD Disruption of external operation (surgical) wound, not elsewhere classified, subsequent encounter (principal); E11.621 Type 2 diabetes mellitus with foot ulcer; L97.513 Non-pressure chronic ulcer of other part of right foot with necrosis of muscle; E11.22 Type 2 diabetes mellitus with diabetic chronic kidney disease; I12.9 Hypertensive chronic kidney disease with stage 1 through stage 4 chronic kidney disease, or unspecified chronic kidney disease; N18.3 Chronic kidney disease, stage 3 (moderate); E11.69 Type 2 diabetes mellitus with other specified complication; M86.671 Other chronic osteomyelitis, right ankle and foot; E11.65 Type 2 diabetes mellitus with hyperglycemia; E11.51 Type 2 diabetes mellitus with diabetic peripheral angiopathy without gangrene; M79.89 Other specified soft tissue disorders; E78.5 Hyperlipidemia, unspecified; E78.00 Pure hypercholesterolemia, unspecified; K21.9 Gastro-esophageal reflux disease without esophagitis; Z79.4 Long term (current) use of insulin; Z89.512 Acquired absence of left leg below knee; Z89.421 Acquired absence of other right toe(s); Z79.899 Other long term (current) drug therapy; Y83.8 Other surgical procedures as the cause of abnormal reaction of the patient, or of later complication, without mention of misadventure at the time of the procedure | CPT/HCPCS: 36416; 82948; 97597 ==

== ENCOUNTER 2020-03-09 09:55 | Day surgery (SDC) | payer MEDICAID | END 2020-03-09 11:05 | disposition home or self-care (01) | LOC: WOUND CARE 09:55 | PROVIDERS: ATTEND Nurse Practitioner | DX: T81.31XD Disruption of external operation (surgical) wound, not elsewhere classified, subsequent encounter (principal); E11.621 Type 2 diabetes mellitus with foot ulcer; L97.513 Non-pressure chronic ulcer of other part of right foot with necrosis of muscle; E11.22 Type 2 diabetes mellitus with diabetic chronic kidney disease; I12.9 Hypertensive chronic kidney disease with stage 1 through stage 4 chronic kidney disease, or unspecified chronic kidney disease; N18.3 Chronic kidney disease, stage 3 (moderate); E11.69 Type 2 diabetes mellitus with other specified complication; M86.671 Other chronic osteomyelitis, right ankle and foot; E11.65 Type 2 diabetes mellitus with hyperglycemia; E11.51 Type 2 diabetes mellitus with diabetic peripheral angiopathy without gangrene; M79.89 Other specified soft tissue disorders; E78.5 Hyperlipidemia, unspecified; E78.00 Pure hypercholesterolemia, unspecified; K21.9 Gastro-esophageal reflux disease without esophagitis; Z79.4 Long term (current) use of insulin; Z89.512 Acquired absence of left leg below knee; Z89.421 Acquired absence of other right toe(s); Z79.899 Other long term (current) drug therapy; Y83.8 Other surgical procedures as the cause of abnormal reaction of the patient, or of later complication, without mention of misadventure at the time of the procedure | CPT/HCPCS: 36416; 82948; 97597 ==

== ENCOUNTER 2020-03-15 09:00 | Day surgery (SDC) | payer MEDICAID ==
[2020-03-15] MEDS ORDERED: LIDOcaine 2% 5ml jelly ONE (09:18)
== END 2020-03-15 10:45 | disposition home or self-care (01) ==
LOC: WOUND CARE 09:00
PROVIDERS: ATTEND Nurse Practitioner
DX: T81.31XD Disruption of external operation (surgical) wound, not elsewhere classified, subsequent encounter (principal); E11.621 Type 2 diabetes mellitus with foot ulcer; L97.513 Non-pressure chronic ulcer of other part of right foot with necrosis of muscle; E11.22 Type 2 diabetes mellitus with diabetic chronic kidney disease; I12.9 Hypertensive chronic kidney disease with stage 1 through stage 4 chronic kidney disease, or unspecified chronic kidney disease; N18.3 Chronic kidney disease, stage 3 (moderate); E11.69 Type 2 diabetes mellitus with other specified complication; M86.671 Other chronic osteomyelitis, right ankle and foot; E11.65 Type 2 diabetes mellitus with hyperglycemia; E11.51 Type 2 diabetes mellitus with diabetic peripheral angiopathy without gangrene; M79.89 Other specified soft tissue disorders; E78.5 Hyperlipidemia, unspecified; E78.00 Pure hypercholesterolemia, unspecified; K21.9 Gastro-esophageal reflux disease without esophagitis; Z79.4 Long term (current) use of insulin; Z89.512 Acquired absence of left leg below knee; Z89.421 Acquired absence of other right toe(s); Z79.899 Other long term (current) drug therapy; Y83.8 Other surgical procedures as the cause of abnormal reaction of the patient, or of later complication, without mention of misadventure at the time of the procedure
CPT/HCPCS: 82948; 97597

== ENCOUNTER 2020-04-26 10:43 | Outpatient (CLI) | payer MEDICAID | END 2020-04-26 23:59 | disposition home or self-care (01) | LOC: RAD 10:43 | PROVIDERS: ATTEND Nurse Practitioner | DX: L97.513 Non-pressure chronic ulcer of other part of right foot with necrosis of muscle (principal); L03.115 Cellulitis of right lower limb | CPT/HCPCS: 73718 ==

== ENCOUNTER 2023-01-16 05:11 | Day surgery (SDC) | payer MEDICARE, MEDICAID ==
[2023-01-16] VITALS (7 sets, daily range): BP systolic 105–128; BP diastolic 53–80
[~2023-01-16] VITALS: Ht 195.6 cm; Wt 127.8 kg
[~2023-01-16 05:11] MED LIST changes: -ATOR10TA PO; +CHLO25TA10 PO; -DAPT500V6 IV; +INSU100I31 SQ; -INSU100V11 SQ; +INSU100V39 SQ; -INSU100V9 SQ; -LACT1CAP26 PO; +LANS30CA56 PO; +LEVO-65 PO; -LISI-642 PO; +LOSA50TA64 PO; -METO-395 PO; +METO10TA3 PO; -NOR5T PO; -PANT-47 PO; +ROSU40TA22 PO
[2023-01-16] MEDS ORDERED: normal saline 1000ml 500 ML IV SCH (05:30)
[2023-01-16] MEDS ORDERED: famotidine 20mg tablet PO ONE (05:30)
[2023-01-16] MEDS ORDERED: normal saline 500ml IV soln 500 ML IV SCH (06:07)
[2023-01-16] MEDS ORDERED: insulin regular, human U-100 3ml vial - multi-dose IV STA ×2 (06:37→08:02)
[2023-01-16] MEDS ORDERED: BUPIVAcaine/PF 2.5 mg/ml (0.25%) 30ml vial ONE (06:44)
[2023-01-16] MEDS ORDERED: bacitracin 15gm ointment TP ONE (06:44)
[2023-01-16] MEDS ORDERED: morphine 2 MG/ML inj. syringe IV PRN (07:35)
[2023-01-16] MEDS ORDERED: meperidine/PF 25mg/ml syringe IV PRN ×3 (07:35)
[2023-01-16] MEDS ORDERED: morphine 4 MG/ML inj SYRINge IV PRN (07:35)
[2023-01-16] MEDS ORDERED: ringers solution, lacted 1,000 ML IV SCH (07:35)
[2023-01-16] MEDS ORDERED: proCHLORperazine 10 MG/2 ml inj IV PRN (07:35)
[2023-01-16] MEDS ORDERED: ondansetron/PF 4mg/2ml inj IV PRN (07:35)
[2023-01-16] MEDS ORDERED: midazolam 1 mg/ML 2ml injection ONE (08:36)
[2023-01-16] MEDS ORDERED: fentaNYL/PF 50MCG/1 ML 2ML syringe ONE ×2 (08:36→09:28)
[2023-01-16] MEDS ORDERED: insulin regular, human U-100 3ml vial - multi-dose ONE (08:38)
[2023-01-16] MEDS ORDERED: sevoflurane 250ml liquid IH ONE (08:40)
[2023-01-16] MEDS ORDERED: ondansetron/PF 4mg/2ml inj ONE (08:40)
[2023-01-16] MEDS ORDERED: LIDOcaine 2% (20mg/ml) 5ml vial ONE (08:52)
[2023-01-16] MEDS ORDERED: propofol inj 20 ML IV ONE (08:52)
[2023-01-16] MEDS ORDERED: ceFAZolin 1000mg inj ONE ×3 (08:52)
--- NOTE | 2023-01-16 09:00 | NUR ---
TOOK PATIENT'S BLODD SUGAR AT 0618 IT WAS 468. NOTIFIED DR PALACIOS, HE ORDERED 10 UNITS REGULAR INSULIN IV STAT. GAVE IV AND RECHECKED IN 30 MINUTES. AT 0755 THE BLOOD SUGAR WAS 453. NOTIFIED DR AGAIN, HE ORDERED REGULAR INSULIN IV STAT AGAIN. GAVE IV INSULIN AND RECHECKED AT 0837 THE BLOOD SUGAR WAS 386. CHOSE TO MOVE FORWARD WITH SURGERY.
[2023-01-16] MEDS ORDERED: povidone-iodine 10% ointment 1 APPLIC APPLIC TP ONE (09:29)
--- NOTE | 2023-01-16 09:41 | NUR ---
Received from OR via , accompanied by Anesthesiologist PHILIP AND MELBA BOTELLO and report given by Anesthesiolgist. PT IS AWAKE AND ALERT AND DENIES PAIN OR DISCOMFORT. UX=[id number] GAVE INSULIN. RT FOOT WITH GAUZE AND COBAN; CDI; VSS Addendum: 01/16/23 at 1012 by Sofia Franklin RN Amended: Links added.
--- NOTE | 2023-01-16 10:51 | NUR ---
I HAVE REVIEWED D/C INSTRUCTIONS WITH PATIENT AND THEY HAVE VERBALIZED UNDERSTANDING OF INSTRUCTIONS. PATIENT D/C HOME WITH ALL BELONGINGS AND FAMILY GAVE TRANSPORT Addendum: 01/16/23 at 1057 by Sofia Franklin RN Amended: Links added.
== END 2023-01-16 10:51 | disposition home or self-care (01) ==
LOC: PAS 05:11
PROVIDERS: ATTEND Podiatrist Foot & Ankle Surgery
DX: T87.81 Dehiscence of amputation stump (principal); K21.9 Gastro-esophageal reflux disease without esophagitis; G47.33 Obstructive sleep apnea (adult) (pediatric); E10.22 Type 1 diabetes mellitus with diabetic chronic kidney disease; I12.9 Hypertensive chronic kidney disease with stage 1 through stage 4 chronic kidney disease, or unspecified chronic kidney disease; N18.4 Chronic kidney disease, stage 4 (severe); E78.5 Hyperlipidemia, unspecified; Z79.4 Long term (current) use of insulin; Z79.899 Other long term (current) drug therapy; Z88.5 Allergy status to narcotic agent; Z88.8 Allergy status to other drugs, medicaments and biological substances; Z89.512 Acquired absence of left leg below knee; Z83.3 Family history of diabetes mellitus; Z82.49 Family history of ischemic heart disease and other diseases of the circulatory system; Y83.8 Other surgical procedures as the cause of abnormal reaction of the patient, or of later complication, without mention of misadventure at the time of the procedure
CPT/HCPCS: 28805; 82948; 87070; 87075; 87077; 87186; A6222; J0690; J1815; J2250; J2704; J3010; J3490; J7030; J7040; J7120; Z7506; Z7508; Z7512; A4618; A6253; A6449; A7000; J2405

== ENCOUNTER 2023-04-25 09:14 | Inpatient (IN) | payer MEDICARE, MEDICAID ==
[~2023-04-25] VITALS: Ht 195.6 cm; Wt 136.4 kg
--- NOTE | 2023-04-25 09:45 | NUR ---
2ND IV BEING OBTAINED AT THIS TIME BY RENÉ BESS AND BLOOD WILL BE COLLECTED FOR LABS/CULTURES.
--- NOTE | 2023-04-25 09:45 | NUR ---
BG PER ACCUCK [id number].
[2023-04-25] MEDS ORDERED: normal saline 1000ml 1,000 ML IV ONE (09:50)
[2023-04-25] MEDS ORDERED: acetaminophen 325mg tablet PO ONE (09:50)
--- NOTE | 2023-04-25 09:59 | NUR ---
PER DR DYER RN MAY ORD 10MG OF COMPAZINE IV AND ADMIN.
[2023-04-25] MEDS ORDERED: proCHLORperazine 10 MG/2 ml inj IV ONE (10:00)
[2023-04-25 10:22] LABS: BASOPHILS % (AUTO) 0.3 % (0-1); EOSINOPHILS % (AUTO) 0.2 % (0-6); HEMATOCRIT 30.5 % (42.0-52.0); HEMOGLOBIN 9.9 g/dl (14.0-17.9); LYMPHOCYTES # (AUTO) 0.4 X10'3 (1.1-4.8); LYMPHOCYTES % (AUTO) 3.9 % (21-51); MEAN CORPUSCULAR HEMOGLOBIN 26.5 PG (27.0-31.0); MEAN CORPUSCULAR HGB CONC 32.5 g/dL (33.0-36.5); MEAN CORPUSCULAR VOLUME 81.3 FL (78-98); MEAN PLATELET VOLUME 7.5 FL (7.4-10.4); MONOCYTES # (AUTO) 0.7 X10'3 (0-0.9); MONOCYTES % (AUTO) 7.5 % (2-12); NEUTROPHILS # (AUTO) 8.8 X10'3 (1.8-7.7); NEUTROPHILS % (AUTO) 88.1 % (42-75); PLATELET COUNT 399 X10'3 (140-440); RED BLOOD COUNT 3.75 X10'6 (4.70-6.10); RED CELL DISTRIBUTION WIDTH 16.1 % (11.5-14.5)
[2023-04-25 10:31] LABS: ACETONE SMALL (NEGATIVE)
[2023-04-25 10:36] LABS: ALANINE AMINOTRANSFERASE 13 U/L (12-78); ALBUMIN 2.7 G/DL (3.4-5.0); ALBUMIN/GLOBULIN RATIO 0.5 (1.1-1.5); ALKALINE PHOSPHATASE 123 IU/L (46-116); ANION GAP 19 (8-16); ASPARTATE AMINO TRANSFERASE 17 U/L (10-37); BILIRUBIN,TOTAL 0.7 MG/DL (0.1-1.0); BLOOD UREA NITROGEN 31 MG/DL (7-18); BUN/CREATININE RATIO 12.8 (10.0-20.0); CHLORIDE 96 MMOL/L (99-107); CREATININE 2.43 MG/DL (0.60-1.10); GLUCOSE 323 MG/DL (70-104); POTASSIUM 3.8 MMOL/L (3.5-5.1); SODIUM 133 MMOL/L (135-145); TOTAL CARBON DIOXIDE 18.5 MMOL/L (24-32); TOTAL PROTEIN 8.4 G/DL (6.4-8.2); eCRCL 49 ML/MIN; eGFR 29 ML/MIN
[2023-04-25] MEDS ORDERED: normal saline 1000ml 1,000 ML IV SCH (10:45)
[2023-04-25] MEDS ORDERED: insulin regular, human 10 units/0.1 ml syringe IV ONE (10:45)
[2023-04-25] MEDS ORDERED: potassium Cl 20 mEq SR tablet PO PRN ×5 (10:45→13:05)
[2023-04-25] MEDS ORDERED: potassium Cl 40MEQ/1/2NS 520ml 520 ML IV PRN ×4 (10:45→13:05)
[2023-04-25] MEDS ORDERED: Insulin Reg/NS 100units/100mL 100 ML IV SCH ×2 (10:45→13:53)
--- NOTE | 2023-04-25 11:14 | NUR ---
PER RENÉ BESS INSULIN DRIP TO BE STARTED AT 3CC/HR PER DR DYER
[2023-04-25] MEDS ORDERED: potassium CL 20mEq in D5-1/2NS 1,000 ML IV PRN ×3 (11:15→13:33)
[2023-04-25] MEDS: normal saline 1000ml 1,000 ML IV SCH ×5 (11:45→22:38)
[2023-04-25 12:11] LABS: ABG BASE EXCESS -8.2 mmol/L (-2.0-2.0); ABG HCO3 15.1 mmol/L (22.0-26.0); ABG OXYGEN SATURATION 93.7 % (94-97); ABG PCO2 (T) 26.1 mmHg (35.0-48.0); ABG PH (T) 7.388 (7.340-7.440); ABG PO2 (T) 73.9 mmHg (75.0-100.0); ALLEN'S TEST POSITIVE; FCOHb 0.3 % (0.0-3.9); FHHb 6.3 % (0.0-5.0); FLOW 1 L/min; FO2Hb 93.4 % (94-97); MODE NASAL CANNULA; PATIENT TEMPERATURE 38.5; TOTAL HEMOGLOBIN 9.5 G/dl (14.0-17.9)
[2023-04-25 12:38] LABS: BILIRUBIN,URINE SMALL (Neg); CLARITY,URINE CLEAR (Clear); COLOR,URINE YELLOW (Yellow); GLUCOSE, URINE >=1000 mg/dl (Neg); KETONES,URINE >=80 mg/dl (Neg); LEUKOCYTE ESTERASE ,URINE NEGATIVE (Neg); NITRITES, URINE NEGATIVE (Neg); OCCULT BLOOD,URINE MODERATE (Neg); PH,URINE 5.5 (4.8-8.0); PROTEIN,URINE >=300 mg/dl (Neg); UROBILINOGEN,URINE 0.2 E.U/dL (0.2-1.0)
[2023-04-25 12:42] LABS: BACTERIA,URINE NONE SEEN /HPF (Neg); MUCUS STRANDS FEW /LPF (Neg); RBC,URINE 0-2 /HPF (0-2); UA COLLECTION TYPE URINAL; WBC,URINE 0-4 /HPF (0-4)
[2023-04-25 12:43] LABS: HYALINE CASTS 0-3 /LPF (NEGATIVE); SQUAMOUS EPITHELIAL CELL,UR FEW /LPF (FEW)
[2023-04-25] MEDS ORDERED: piperacillin/tazo 4.5gm/100ml 100 ML IV STA (12:52)
--- NOTE | 2023-04-25 12:54 | NUR ---
Phosphorus 1.2. Critical results given to Dr. Garvin
[2023-04-25] MEDS ORDERED: sodium phosphate inj. 30 MMOL in dextrose 5%-water 250 ML IV PRN (13:05)
[2023-04-25] MEDS ORDERED: magnesium hydroxide 30ml (MOM) UD suspension PO PRN (13:05)
[2023-04-25] MEDS ORDERED: sodium phosphate inj. 15 MMOL in dextrose 5%-water 250 ML IV PRN (13:05)
[2023-04-25] MEDS ORDERED: magnesium 4gm in 100ml NS 100 ML IV PRN (13:05)
[2023-04-25] MEDS ORDERED: magnesium 2GM in 50ml NS 50 ML IV PRN (13:05)
[2023-04-25] MEDS ORDERED: sodium bicarbonate (8.4%) inj. 50 MEQ in dextrose 5% water 500ml 250 ML IV PRN (13:05)
[2023-04-25] MEDS ORDERED: Neutra Phos packet PO PRN (13:05)
[2023-04-25] MEDS ORDERED: magnesium Cl slow-release 64mg tablet PO PRN (13:05)
[2023-04-25] MEDS ORDERED: HYDROcodone/acetaminophen 5mg/325mg tablet PO PRN (13:05)
[2023-04-25] MEDS ORDERED: ondansetron/PF 4mg/2ml inj IV PRN (13:05)
[2023-04-25] MEDS ORDERED: sodium bicarbonate (8.4%) inj. 100 MEQ in dextrose 5% water 500ml 500 ML IV PRN (13:05)
[2023-04-25] MEDS ORDERED: VANCOmycin 2,000MG in NS 500ml IV soln IV ONE (13:30)
--- NOTE | 2023-04-25 13:49 | NUR ---
PT BG 289. PHARMACIST CALLED AND STATED THAT SHE WILL DC THE ED MD INSULIN DRIP ORD AND LEAVE HOSPITALIST ORD ACTIVE.
[2023-04-25] MEDS ORDERED: insulin regular, human U-100 3ml vial - multi-dose IV PRN (13:50)
[2023-04-25 14:12] LABS: ALBUMIN 2.3 G/DL (3.4-5.0); ANION GAP 13 (8-16); BLOOD UREA NITROGEN 31 MG/DL (7-18); BUN/CREATININE RATIO 13.1 (10.0-20.0); CALCIUM 8.6 MG/DL (8.5-10.1); CHLORIDE 101 MMOL/L (99-107); CREATININE 2.36 MG/DL (0.60-1.10); GLUCOSE 289 MG/DL (70-104); POTASSIUM 3.6 MMOL/L (3.5-5.1); SODIUM 134 MMOL/L (135-145); eCRCL 50 ML/MIN; eGFR 30 ML/MIN
[2023-04-25] MEDS ORDERED: glucagon, human recombinant 1mg kit SUBCUT PRN (16:05)
[2023-04-25] MEDS ORDERED: dextrose 50%-water 50ml dispensing syringe IV PRN ×2 (16:05)
[2023-04-25] MEDS ORDERED: DEXTROSE 15 GM of carb/4 tabs (each vial/BOTTLE has 4 tablets) PO PRN ×2 (16:05)
--- NOTE | 2023-04-25 16:29 | NUR ---
CALLED PHARMACY TO QUESTION 2,000MG VANCOMYCIN LOADING DOSE. NOTIFIED OF BUN -31, CREATNINE-2.36, AND GFR-30. PHARMACIST NOTIFIED AND OKAYED TO GIVE.
[2023-04-25 16:50] LABS: HEMOGLOBIN A1C 10.7 % (4.5-6.2)
[2023-04-25 17:24] VITALS: RESP 18; O2SAT 93
[2023-04-25 18:04] VITALS: BP 129/75; PULSE 90; RESP 18; TEMP 98.6; O2SAT 93
--- NOTE | 2023-04-25 18:33 | NUR ---
Problems reprioritized. Patient report given TO SID BESS, questions answered & plan of care reviewed with .
[2023-04-25] MEDS: docusate sod 100mg capsule PO SCH (19:37)
[2023-04-25] MEDS: K and/or MAG REPLACEMENT MC SCH (19:37)
[2023-04-25] MEDS: mag hydrox/Alum hydrox/simeth 30ml oral suspension PO PRN (19:41)
[2023-04-25] MEDS: acetaminophen 325mg tablet PO PRN (19:42)
[2023-04-25] MEDS: insulin Lispro (HumaLOG) vial - multi-dose SQ SCH ×2 (19:47→21:10)
[2023-04-25 20:00] VITALS: RESP 18; O2SAT 95
[2023-04-25] MEDS ORDERED: VANCOMYCIN 1,500MG inj. 1,500 MG in normal saline 500ml IV soln 300 ML IV SCH (20:00)
[2023-04-25] MEDS ORDERED: K and/or MAG REPLACEMENT MC SCH ×2 (20:00)
[2023-04-25] MEDS: insulin glargine (Lantus) pen - multi-dose SQ SCH (21:09)
[2023-04-25 23:00] VITALS: BP 155/82; PULSE 78; RESP 18; TEMP 97.5; O2SAT 93
[2023-04-25] MEDS: piperacillin/tazo 4.5gm/100ml 100 ML IV SCH (23:55)
[2023-04-26] MEDS: normal saline 1000ml 1,000 ML IV SCH ×6 (02:30→21:15)
[2023-04-26] MEDS: vancomycin/NS 1 GM ADD-VANTAGE 250 ML IV SCH ×2 (02:30→15:23)
[2023-04-26] MEDS ORDERED: insulin Lispro (HumaLOG) vial - multi-dose SQ ONE (03:05)
[2023-04-26] MEDS: acetaminophen 325mg tablet PO PRN ×2 (03:52→08:55)
[2023-04-26] MEDS: mag hydrox/Alum hydrox/simeth 30ml oral suspension PO PRN (03:52)
[2023-04-26 06:00] VITALS: BP 176/63; PULSE 75; RESP 17; TEMP 97.3; O2SAT 96
[2023-04-26 06:19] LABS: BASOPHILS % (AUTO) 0.6 % (0-1); EOSINOPHILS # (AUTO) 0.1 X10'3 (0-0.9); EOSINOPHILS % (AUTO) 1.3 % (0-6); HEMATOCRIT 26.2 % (42.0-52.0); HEMOGLOBIN 8.5 g/dl (14.0-17.9); LYMPHOCYTES # (AUTO) 0.8 X10'3 (1.1-4.8); LYMPHOCYTES % (AUTO) 9.1 % (21-51); MEAN CORPUSCULAR HEMOGLOBIN 26.8 PG (27.0-31.0); MEAN CORPUSCULAR HGB CONC 32.5 g/dL (33.0-36.5); MEAN CORPUSCULAR VOLUME 82.3 FL (78-98); MEAN PLATELET VOLUME 7.8 FL (7.4-10.4); MONOCYTES # (AUTO) 1.1 X10'3 (0-0.9); MONOCYTES % (AUTO) 12.8 % (2-12); NEUTROPHILS # (AUTO) 6.3 X10'3 (1.8-7.7); NEUTROPHILS % (AUTO) 76.2 % (42-75); PLATELET COUNT 307 X10'3 (140-440); RED BLOOD COUNT 3.18 X10'6 (4.70-6.10); RED CELL DISTRIBUTION WIDTH 16.4 % (11.5-14.5); WHITE BLOOD COUNT 8.3 X10'3 (4.5-11.0)
[2023-04-26 06:33] LABS: ALANINE AMINOTRANSFERASE 21 U/L (12-78); ALBUMIN 2.2 G/DL (3.4-5.0); ALBUMIN/GLOBULIN RATIO 0.5 (1.1-1.5); ALKALINE PHOSPHATASE 128 IU/L (46-116); ANION GAP 12 (8-16); ASPARTATE AMINO TRANSFERASE 29 U/L (10-37); BILIRUBIN,TOTAL 0.5 MG/DL (0.1-1.0); BLOOD UREA NITROGEN 30 MG/DL (7-18); BUN/CREATININE RATIO 13.9 (10.0-20.0); CALCIUM 7.9 MG/DL (8.5-10.1); CHLORIDE 104 MMOL/L (99-107); CREATININE 2.16 MG/DL (0.60-1.10); GLUCOSE 313 MG/DL (70-104); MAGNESIUM 1.8 MG/DL (1.5-2.4); PHOSPHORUS 2.6 MG/DL (2.3-4.5); SODIUM 135 MMOL/L (135-145); TOTAL CARBON DIOXIDE 18.8 MMOL/L (24-32); eCRCL 55 ML/MIN; eGFR 33 ML/MIN
[2023-04-26] MEDS: piperacillin/tazo 4.5gm/100ml 100 ML IV SCH ×3 (07:06→23:43)
[2023-04-26 08:00] VITALS: RESP 17; O2SAT 96
[2023-04-26] MEDS: K and/or MAG REPLACEMENT MC SCH ×2 (08:00→20:00)
[2023-04-26] MEDS: enoxaparin 40mg/0.4ml syringe SUBCUT SCH (08:00)
[2023-04-26] MEDS: docusate sod 100mg capsule PO SCH ×2 (08:00→20:00)
[2023-04-26] MEDS: insulin Lispro (HumaLOG) vial - multi-dose SQ SCH ×4 (08:50→22:10)
[2023-04-26 10:30] VITALS: BP 156/78; PULSE 90; RESP 17; TEMP 98; O2SAT 98
[2023-04-26] MEDS ORDERED: pantoprazole 40mg Tablet.DR PO ONE (13:40)
--- NOTE | 2023-04-26 15:45 | NUR ---
DM Consult: Pt admit DX R foot DM ulcer pending WOC assessment, HTN, hiatal hernia, T1DM A1C 10.7%, GERD, anemia, and acute on chronic renal failure per EMR. Pt hx LBKA w/ A1C hx 9.6% 02/03/20 all others between 10/8%-12.6% since 2018 takes 28-30 units Lantus BID and 20-30 units Novolog TID at home per EMR. Glu 261-313mg/dl today and 311mg/dl on admit per EMR; received 6 units Lantus last night RD d/w who is agreeable to Lantus BID to match home regimen. Pt seen by RD at bedside for written/verbal DM/high protein eds; pt declined written eds RD encouraged to contact dietitian's office if nutrition questions/concerns. Pt reports ate half eggs and drank milk WB otherwise can't eat much since constant abdominal discomfort persists and has been for months given hiatal hernia. Pt declines ONS at this time; was amenable to verbal high protein/ONS diet ed which RD provided. 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 Pt reports running out of short acting insulin frequently since he's giving himself more than normal in attempts to control Glu constantly in high 200's or low 300's at home. Per pt, once out of short-acting insulin Rx goes to [facility] and buys/uses their short-acting until he's resupplied. Per pt, PCP encouraged him to f/u w/ his insurance on which insulin they cover since Novolog isn't working well but he feels that's not his responsibility. Per pt, has PCP but not specific DM MD. RD d/w CM pt reported insulin issues; per CM has adequate insurance coverage may benefit from insulin pump for long-term solution and this RD agrees. RD encouraged pt to f/u w/ PCP regarding insulin pump; pt reports has been discussed multiple times but he will never want insulin pump since he "can control Glu when not sick"-CM and RN notified. LBM 04/24 per EMR. Will monitor for further nutrition intervention needs this admit. Rec: 1. continue carb controlled diet; liberalize to regular if poor intake persists given large stature 2. monitor for further kcal/protein sources pending PO trends; pt declines ONS at this time 3. monitor WOC note for further nutrition intervention needs 4. routine bowel care 5. weekly wt Addendum: 04/26/23 at [address] Amended: Links added.
[2023-04-26 18:00] VITALS: BP 178/94; PULSE 88; RESP 15; TEMP 97.6; O2SAT 92
[2023-04-26 18:30] VITALS: RESP 15; O2SAT 92
[2023-04-26] MEDS: pantoprazole 40mg Tablet.DR PO SCH (20:02)
[2023-04-26 22:00] VITALS: BP 177/95; PULSE 85; RESP 16; TEMP 97.8; O2SAT 94
[2023-04-26] MEDS: insulin glargine (Lantus) pen - multi-dose SQ SCH (22:11)
[2023-04-26] MEDS: proCHLORperazine 10 MG/2 ml inj IV PRN (22:14)
[2023-04-26] MEDS ORDERED: ondansetron/PF 4mg/2ml inj IV PRN (23:00)
[2023-04-27] MEDS: normal saline 1000ml 1,000 ML IV SCH (01:15)
[2023-04-27] MEDS ORDERED: VANCOMYCIN LEVEL IV ONE (01:30)
[2023-04-27] MEDS: vancomycin/NS 1 GM ADD-VANTAGE 250 ML IV SCH ×2 (02:12→14:24)
[2023-04-27] MEDS: proCHLORperazine 10 MG/2 ml inj IV PRN (04:34)
[2023-04-27 06:00] VITALS: BP 158/90; PULSE 74; RESP 20; TEMP 97.8; O2SAT 92
[2023-04-27 06:05] LABS: BASOPHILS # (AUTO) 0.1 X10'3 (0-0.2); BASOPHILS % (AUTO) 0.9 % (0-1); EOSINOPHILS # (AUTO) 0.4 X10'3 (0-0.9); EOSINOPHILS % (AUTO) 6.3 % (0-6); HEMATOCRIT 23.8 % (42.0-52.0); HEMOGLOBIN 7.8 g/dl (14.0-17.9); LYMPHOCYTES # (AUTO) 1.1 X10'3 (1.1-4.8); LYMPHOCYTES % (AUTO) 16.1 % (21-51); MEAN CORPUSCULAR HEMOGLOBIN 26.4 PG (27.0-31.0); MEAN CORPUSCULAR HGB CONC 32.6 g/dL (33.0-36.5); MEAN CORPUSCULAR VOLUME 80.8 FL (78-98); MEAN PLATELET VOLUME 7.6 FL (7.4-10.4); MONOCYTES # (AUTO) 1.1 X10'3 (0-0.9); MONOCYTES % (AUTO) 16.4 % (2-12); NEUTROPHILS # (AUTO) 4.1 X10'3 (1.8-7.7); NEUTROPHILS % (AUTO) 60.3 % (42-75); PLATELET COUNT 313 X10'3 (140-440); RED BLOOD COUNT 2.95 X10'6 (4.70-6.10); RED CELL DISTRIBUTION WIDTH 16.2 % (11.5-14.5); WHITE BLOOD COUNT 6.9 X10'3 (4.5-11.0)
--- NOTE | 2023-04-27 06:28 | NUR ---
I have received report from SHAHRIAR Gatica and had the opportunity to ask questions and assume patient care. No distress at this time.
[2023-04-27 06:34] LABS: % IRON SATURATION 11 % (11-46); IRON 16 UG/DL (53-167); TOTAL IRON BINDING CAPACITY 146 UG/DL (259-388)
--- NOTE | 2023-04-27 06:38 | NUR ---
Problems reprioritized. Patient report given, questions answered & plan of care reviewed with JOHN. Addendum: 04/27/23 at 0639 by Jose Ramon Last RN Amended: Links added.
--- NOTE | 2023-04-27 06:39 | NUR ---
Problems reprioritized. Patient report given, questions answered & plan of care reviewed with MERCY. Addendum: 04/27/23 at 0640 by Jose Ramon Last RN Amended: Links added.
[2023-04-27 06:48] LABS: ALANINE AMINOTRANSFERASE 13 U/L (12-78); ALBUMIN/GLOBULIN RATIO 0.4 (1.1-1.5); ALKALINE PHOSPHATASE 124 IU/L (46-116); ANION GAP 13 (8-16); ASPARTATE AMINO TRANSFERASE 19 U/L (10-37); BILIRUBIN,TOTAL 0.4 MG/DL (0.1-1.0); BLOOD UREA NITROGEN 19 MG/DL (7-18); BUN/CREATININE RATIO 10.2 (10.0-20.0); CALCIUM 8.6 MG/DL (8.5-10.1); CHLORIDE 106 MMOL/L (99-107); CREATININE 1.86 MG/DL (0.60-1.10); FERRITIN 179 NG/ML (26-388); GLUCOSE 258 MG/DL (70-104); POTASSIUM 3.8 MMOL/L (3.5-5.1); SODIUM 138 MMOL/L (135-145); TOTAL PROTEIN 6.5 G/DL (6.4-8.2); eCRCL 64 ML/MIN; eGFR 40 ML/MIN
[2023-04-27] MEDS: piperacillin/tazo 4.5gm/100ml 100 ML IV SCH ×3 (07:08→23:34)
[2023-04-27] MEDS: K and/or MAG REPLACEMENT MC SCH ×2 (07:45→20:00)
[2023-04-27] MEDS: pantoprazole 40mg Tablet.DR PO SCH ×2 (07:45→20:51)
[2023-04-27] MEDS: enoxaparin 40mg/0.4ml syringe SUBCUT SCH ×2 (07:45→07:47)
[2023-04-27] MEDS: docusate sod 100mg capsule PO SCH (07:45)
--- NOTE | 2023-04-27 07:47 | NUR ---
Lovonax non admin. Patient refused after explained the medications and what it was prescribed for. Pt still refused.
[2023-04-27 08:00] VITALS: RESP 16; O2SAT 100
[2023-04-27] MEDS: insulin Lispro (HumaLOG) vial - multi-dose SQ SCH ×3 (08:01→19:16)
[2023-04-27 08:49] LABS: ANISOCYTOSIS 1+; PLATELET ESTIMATE NORMAL; TOTAL CELLS COUNTED 100
[2023-04-27] MEDS ORDERED: amLODIPine 5mg tablet PO SCH (09:35)
[2023-04-27 10:00] VITALS: BP 166/91; PULSE 78; RESP 16; TEMP 97.7; O2SAT 91
[2023-04-27] MEDS: losartan 50mg tablet PO SCH (10:29)
--- NOTE | 2023-04-27 10:55 | NUR ---
HTN medications administered. Addendum: 04/27/23 at 1056 by Dior Darnell LVN, LVN Amended: Links added.
[2023-04-27] MEDS ORDERED: METO25TA6 PO (14:44)
--- NOTE | 2023-04-27 15:16 | NUR ---
WOUND INFECTION EDUCATION PROVIDED BY WOUND CARE 1. Patient instructed to call their primary doctor, or go the ED immediately if any of the following symptoms occur: * Increased pain in wound * Increase in drainage from the wound * Redness in the skin surrounding the wound * Warmth in the skin surrounding the wound * Bleeding from the wound * Temperature of 101 or greater 2. If any of these occur while in the hospital tell a nurse immediately. Addendum: 04/27/23 at 1516 by Suzanne Chawla RN Amended: Links added.
[2023-04-27] MEDS: acetaminophen 325mg tablet PO PRN (16:13)
--- NOTE | 2023-04-27 18:08 | NUR ---
Problems reprioritized. Patient report given, questions answered & plan of care reviewed with SHAHRIAR Gatica.
[2023-04-27 18:30] VITALS: BP 176/95; PULSE 87; RESP 16; TEMP 98.3; O2SAT 100
[2023-04-27] MEDS ORDERED: non-formulary drug (Lansoprazole 1 CAP) PO SCH (20:00)
[2023-04-27] MEDS: insulin glargine (Lantus) pen - multi-dose SQ SCH (21:47)
[2023-04-27 22:00] VITALS: BP 181/94; PULSE 88; RESP 16; TEMP 98.6; O2SAT 96
[2023-04-27] MEDS: hydrALAZINE 20mg/ml inj. IV PRN (23:09)
[2023-04-28] MEDS: acetaminophen 325mg tablet PO PRN (01:46)
[2023-04-28] MEDS: vancomycin/NS 1 GM ADD-VANTAGE 250 ML IV SCH ×2 (02:28→14:06)
[2023-04-28 06:00] VITALS: BP 158/73; PULSE 87; RESP 16; TEMP 98.7; O2SAT 96
[2023-04-28 06:21] LABS: BASOPHILS # (AUTO) 0.1 X10'3 (0-0.2); BASOPHILS % (AUTO) 0.9 % (0-1); EOSINOPHILS # (AUTO) 0.5 X10'3 (0-0.9); EOSINOPHILS % (AUTO) 6.9 % (0-6); HEMATOCRIT 26.1 % (42.0-52.0); HEMOGLOBIN 8.3 g/dl (14.0-17.9); LYMPHOCYTES # (AUTO) 1.1 X10'3 (1.1-4.8); LYMPHOCYTES % (AUTO) 14.7 % (21-51); MEAN CORPUSCULAR HEMOGLOBIN 25.9 PG (27.0-31.0); MEAN CORPUSCULAR VOLUME 80.9 FL (78-98); MEAN PLATELET VOLUME 7.8 FL (7.4-10.4); MONOCYTES % (AUTO) 13.2 % (2-12); NEUTROPHILS # (AUTO) 4.9 X10'3 (1.8-7.7); NEUTROPHILS % (AUTO) 64.3 % (42-75); PLATELET COUNT 407 X10'3 (140-440); RED BLOOD COUNT 3.22 X10'6 (4.70-6.10); RED CELL DISTRIBUTION WIDTH 16.4 % (11.5-14.5); WHITE BLOOD COUNT 7.6 X10'3 (4.5-11.0)
[2023-04-28 06:36] LABS: ALANINE AMINOTRANSFERASE 10 U/L (12-78); ALBUMIN 1.9 G/DL (3.4-5.0); ALBUMIN/GLOBULIN RATIO 0.4 (1.1-1.5); ALKALINE PHOSPHATASE 114 IU/L (46-116); ANION GAP 15 (8-16); ASPARTATE AMINO TRANSFERASE 16 U/L (10-37); BILIRUBIN,TOTAL 0.4 MG/DL (0.1-1.0); BLOOD UREA NITROGEN 13 MG/DL (7-18); BUN/CREATININE RATIO 7.6 (10.0-20.0); CALCIUM 8.6 MG/DL (8.5-10.1); CHLORIDE 104 MMOL/L (99-107); GLUCOSE 283 MG/DL (70-104); MAGNESIUM 1.8 MG/DL (1.5-2.4); POTASSIUM 3.7 MMOL/L (3.5-5.1); SODIUM 137 MMOL/L (135-145); TOTAL CARBON DIOXIDE 17.9 MMOL/L (24-32); TOTAL PROTEIN 6.5 G/DL (6.4-8.2); eCRCL 70 ML/MIN; eGFR 44 ML/MIN
--- NOTE | 2023-04-28 06:45 | NUR ---
Patient in room ORTHO 4007. I have received report from En BESS and had the opportunity to ask questions and assume patient care.
[2023-04-28] MEDS: atorvastatin 20mg tablet PO SCH (07:47)
[2023-04-28] MEDS: metoprolol tartrate 25mg tablet PO SCH (07:49)
[2023-04-28] MEDS: losartan 50mg tablet PO SCH ×2 (07:49→09:37)
[2023-04-28] MEDS: pantoprazole 40mg Tablet.DR PO SCH ×2 (07:49→21:13)
[2023-04-28] MEDS: enoxaparin 40mg/0.4ml syringe SUBCUT SCH ×2 (07:51→07:55)
[2023-04-28] MEDS: piperacillin/tazo 4.5gm/100ml 100 ML IV SCH ×3 (07:55→23:24)
[2023-04-28 08:00] VITALS: RESP 16; O2SAT 96
[2023-04-28] MEDS: K and/or MAG REPLACEMENT MC SCH ×2 (08:00→20:00)
[2023-04-28 09:36] VITALS: BP 172/95; PULSE 79
--- NOTE | 2023-04-28 09:47 | NUR ---
AGER ID: [phone] MESSAGE: [phone] Brandin Nevarez- GRAM POSITIVE COCCI IN CLUSTERS SEEN IN ANAEROBIC BOTTLE GRAM POSITIVE COCCI IN CLUSTERSSEEN IN AEROBIC BOTTLE. Will thompson [phone]
[2023-04-28] MEDS: insulin Lispro (HumaLOG) vial - multi-dose SQ SCH ×3 (09:52→18:43)
--- NOTE | 2023-04-28 11:11 | NUR ---
F/u 04/28: Per WOC, R foot DM ulcer no staging per EMR. Will monitor for further nutrition intervention needs. Addendum: 04/28/23 at [address] Amended: Links added.
[2023-04-28] MEDS: hydrALAZINE 20mg/ml inj. IV PRN ×2 (17:25→23:24)
[2023-04-28 18:00] VITALS: BP 190/102; PULSE 83; RESP 14; TEMP 98.2; O2SAT 97
--- NOTE | 2023-04-28 18:00 | NUR ---
I have reviewed and agree with interventions, assessments, and documentation by Onelia Chan LVN.
--- NOTE | 2023-04-28 18:33 | NUR ---
Problems reprioritized. Patient report given, questions answered & plan of care reviewed with Jessica BESS.
[2023-04-28 20:00] VITALS: RESP 14; O2SAT 97
[2023-04-28] MEDS: insulin glargine (Lantus) pen - multi-dose SQ SCH (21:00)
[2023-04-28 22:00] VITALS: BP 176/83; PULSE 87; RESP 16; TEMP 97.6; O2SAT 96
[2023-04-28] MEDS ORDERED: ibuprofen tablet 400 MG TABLET PO PRN (22:35)
[2023-04-29] VITALS (8 sets, daily range): BP systolic 152–193; BP diastolic 81–103; PULSE 85–91; RESP 16–20; TEMP 97.7–98.3; O2SAT 96–97
[2023-04-29] MEDS: vancomycin/NS 1 GM ADD-VANTAGE 250 ML IV SCH ×2 (01:39→13:56)
[2023-04-29 06:31] LABS: BASOPHILS % (AUTO) 0.6 % (0-1); EOSINOPHILS # (AUTO) 0.6 X10'3 (0-0.9); EOSINOPHILS % (AUTO) 7.8 % (0-6); HEMATOCRIT 28.3 % (42.0-52.0); HEMOGLOBIN 8.9 g/dl (14.0-17.9); LYMPHOCYTES # (AUTO) 1.3 X10'3 (1.1-4.8); LYMPHOCYTES % (AUTO) 17.5 % (21-51); MEAN CORPUSCULAR HEMOGLOBIN 25.6 PG (27.0-31.0); MEAN CORPUSCULAR HGB CONC 31.7 g/dL (33.0-36.5); MEAN PLATELET VOLUME 7.7 FL (7.4-10.4); MONOCYTES % (AUTO) 13.5 % (2-12); NEUTROPHILS # (AUTO) 4.6 X10'3 (1.8-7.7); NEUTROPHILS % (AUTO) 60.6 % (42-75); PLATELET COUNT 531 X10'3 (140-440); RED BLOOD COUNT 3.49 X10'6 (4.70-6.10); RED CELL DISTRIBUTION WIDTH 16.8 % (11.5-14.5); WHITE BLOOD COUNT 7.6 X10'3 (4.5-11.0)
--- NOTE | 2023-04-29 06:45 | NUR ---
Patient in room ORTHO 4007. I have received report from Hodan BESS and had the opportunity to ask questions and assume patient care.
--- NOTE | 2023-04-29 06:47 | NUR ---
Problems reprioritized. Patient report given, questions answered & plan of care reviewed with SHAHRIAR MALONEY.
[2023-04-29 06:50] LABS: ALANINE AMINOTRANSFERASE 20 U/L (12-78); ALBUMIN 2.1 G/DL (3.4-5.0); ALBUMIN/GLOBULIN RATIO 0.4 (1.1-1.5); ALKALINE PHOSPHATASE 106 IU/L (46-116); ANION GAP 15 (8-16); ASPARTATE AMINO TRANSFERASE 15 U/L (10-37); BILIRUBIN,TOTAL 0.6 MG/DL (0.1-1.0); BLOOD UREA NITROGEN 12 MG/DL (7-18); BUN/CREATININE RATIO 6.6 (10.0-20.0); CALCIUM 9.5 MG/DL (8.5-10.1); CHLORIDE 103 MMOL/L (99-107); CREATININE 1.82 MG/DL (0.60-1.10); GLUCOSE 283 MG/DL (70-104); MAGNESIUM 1.9 MG/DL (1.5-2.4); POTASSIUM 3.4 MMOL/L (3.5-5.1); SODIUM 137 MMOL/L (135-145); TOTAL CARBON DIOXIDE 19.4 MMOL/L (24-32); TOTAL PROTEIN 6.9 G/DL (6.4-8.2); eCRCL 65 ML/MIN; eGFR 41 ML/MIN
[2023-04-29] MEDS: atorvastatin 20mg tablet PO SCH (07:34)
[2023-04-29] MEDS: pantoprazole 40mg Tablet.DR PO SCH ×2 (07:34→19:57)
[2023-04-29] MEDS: losartan 50mg tablet PO SCH ×3 (07:34→15:50)
[2023-04-29] MEDS: metoprolol tartrate 25mg tablet PO SCH (07:35)
[2023-04-29] MEDS: K and/or MAG REPLACEMENT MC SCH (08:00)
[2023-04-29] MEDS: enoxaparin 40mg/0.4ml syringe SUBCUT SCH (08:00)
--- NOTE | 2023-04-29 08:00 | NUR ---
Patient refused his Lovenox injection. I educated him on why he should take this but patient still decided to refuse medication.
[2023-04-29] MEDS: insulin Lispro (HumaLOG) vial - multi-dose SQ SCH ×2 (09:39→20:02)
[2023-04-29] MEDS: hydrALAZINE 20mg/ml inj. IV PRN (12:33)
--- NOTE | 2023-04-29 13:24 | NUR ---
DIABETIC FOOT CARE EDUCATION PROVIDED BY WOUND CARE * Wash your feet daily with lukewarm water and soap. * Dry your feet well, especially between the toes. * Keep the skin moisturized with lotion, but do not apply it between the toes. * Check your feet for blisters, cuts or sores. * Use an emery board to shape your toenails even with the ends of your toes. * Change daily into clean, soft socks or stockings, not too big or too small. * Keep your feet warm and dry. * Preferably wear special padded socks and shoes that fit well. * Never walk barefoot indoors or outdoors. * Examine your shoes everyday for cracks, sameera, nails or anything that could hurt your feet. * Tell your doctor if you find any of these problems or have any concerns after examining your feet. Addendum: 04/29/23 at 1327 by Suzanne Chawla RN Amended: Links added.
[2023-04-29] MEDS ORDERED: potassium Cl 20 mEq SR tablet PO ONE (13:50)
--- NOTE | 2023-04-29 13:58 | NUR ---
F/u 04/29: [facility] and consuming ~15% of meals PO intake since admit not meeting estimated nutrient needs. LBM 04/28 per EMR. Pt seen by RD and Parliamentary Archivist at bedside. Per pt consistently having abdominal pain due to hiatal hernia making it difficult to consume much food has referral from PCP for hernia. Based on pt food recall consumed 3/4 subway sandwich brought in by SO WD yesterday. Pt stated he likes [employer] 42g protein beverage from home and will have SO bring in. RD reinforced the importance of nutrition for wound healing. Recommended pt avoid straws to consume beverages to potentially reduce excess air. RD recommended smoothies with Clay to assist in energy/protein intake and wound healing. Pt agreeable to try strawberry smoothie BIDBD; notified physician.Will continue to monitor. Rec: 1. continue carb controlled diet; liberalize to regular if poor intake persists given large stature 2. [place] clay smoothie BIDBD for wound healing; pending physician verification in EMR 3. [place] smoothies TID pending clay verification per pt preference 4. monitor for further kcal/protein sources pending PO trends 5. routine bowel care 6. weekly wt Addendum: 04/29/23 at 1358 by Sherrill Darnell Parliamentary Archivist RD Amended: Links added. Addendum: 04/29/23 at [address] HAYDEE has reviewed and approves of above Parliamentary Archivist note.
--- NOTE | 2023-04-29 15:30 | NUR ---
PAGER ID: [phone] MESSAGE: [phone] Brandin Nevarez- patient BP is 185/100 pls advise? ROBB Rousseau [phone]
[2023-04-29] MEDS: hydrALAZINE 20mg/ml inj. IV SCH (15:56)
--- NOTE | 2023-04-29 18:00 | NUR ---
I have reviewed and agree with interventions, assessments, and documentation by Onelia Chan LVN.
--- NOTE | 2023-04-29 18:11 | NUR ---
Problems reprioritized. Patient report given, questions answered & plan of care reviewed with Edward PARDO.
[2023-04-29] MEDS ORDERED: potassium Cl 40MEQ/1/2NS 520ml 520 ML IV PRN (21:00)
[2023-04-29] MEDS ORDERED: magnesium 2GM in 50ml NS 50 ML IV PRN (21:00)
[2023-04-29] MEDS ORDERED: magnesium 4gm in 100ml NS 100 ML IV PRN (21:00)
[2023-04-29] MEDS ORDERED: potassium Cl 20 mEq SR tablet PO PRN ×2 (21:00)
[2023-04-29] MEDS ORDERED: magnesium Cl slow-release 64mg tablet PO PRN (21:00)
[2023-04-29] MEDS: insulin glargine (Lantus) pen - multi-dose SQ SCH (21:36)
[2023-04-30] MEDS: hydrALAZINE 20mg/ml inj. IV SCH ×3 (00:10→16:05)
[2023-04-30 00:17] VITALS: BP 179/93; PULSE 96; RESP 18; O2SAT 97
[2023-04-30] MEDS: vancomycin/NS 1 GM ADD-VANTAGE 250 ML IV SCH ×2 (02:30→13:50)
--- NOTE | 2023-04-30 03:35 | NUR ---
CHAR documentation: I have reviewed and agree with assessment performed and documented by CHAR Leon unless otherwise noted by me in the chart.
[2023-04-30 06:00] VITALS: BP 155/85; PULSE 93; RESP 18; TEMP 99; O2SAT 95
--- NOTE | 2023-04-30 06:32 | NUR ---
Problems reprioritized. Patient report given, questions answered & plan of care reviewed with Anthony PARDO.
[2023-04-30 06:39] LABS: BASOPHILS # (AUTO) 0.1 X10'3 (0-0.2); BASOPHILS % (AUTO) 0.6 % (0-1); EOSINOPHILS # (AUTO) 0.5 X10'3 (0-0.9); EOSINOPHILS % (AUTO) 5.9 % (0-6); HEMATOCRIT 26.2 % (42.0-52.0); HEMOGLOBIN 8.7 g/dl (14.0-17.9); LYMPHOCYTES # (AUTO) 1.6 X10'3 (1.1-4.8); LYMPHOCYTES % (AUTO) 17.8 % (21-51); MEAN CORPUSCULAR HEMOGLOBIN 26.6 PG (27.0-31.0); MEAN CORPUSCULAR VOLUME 80.4 FL (78-98); MONOCYTES % (AUTO) 11.5 % (2-12); NEUTROPHILS # (AUTO) 5.7 X10'3 (1.8-7.7); NEUTROPHILS % (AUTO) 64.2 % (42-75); PLATELET COUNT 528 X10'3 (140-440); RED BLOOD COUNT 3.27 X10'6 (4.70-6.10); RED CELL DISTRIBUTION WIDTH 16.6 % (11.5-14.5); WHITE BLOOD COUNT 8.8 X10'3 (4.5-11.0)
--- NOTE | 2023-04-30 06:44 | NUR ---
Patient in room ORTHO 4007. I have received report from CHAR Leon and had the opportunity to ask questions and assume patient care.
[2023-04-30 07:00] LABS: ALANINE AMINOTRANSFERASE 17 U/L (12-78); ALBUMIN/GLOBULIN RATIO 0.5 (1.1-1.5); ALKALINE PHOSPHATASE 92 IU/L (46-116); ANION GAP 13 (8-16); ASPARTATE AMINO TRANSFERASE 16 U/L (10-37); BILIRUBIN,TOTAL 0.4 MG/DL (0.1-1.0); BLOOD UREA NITROGEN 12 MG/DL (7-18); BUN/CREATININE RATIO 6.8 (10.0-20.0); CALCIUM 9.4 MG/DL (8.5-10.1); CHLORIDE 105 MMOL/L (99-107); CREATININE 1.77 MG/DL (0.60-1.10); GLUCOSE 240 MG/DL (70-104); SODIUM 137 MMOL/L (135-145); TOTAL CARBON DIOXIDE 19.3 MMOL/L (24-32); TOTAL PROTEIN 6.4 G/DL (6.4-8.2); eCRCL 67 ML/MIN; eGFR 42 ML/MIN
[2023-04-30 08:00] VITALS: RESP 16; O2SAT 99
[2023-04-30] MEDS: enoxaparin 40mg/0.4ml syringe SUBCUT SCH (08:00)
[2023-04-30] MEDS: K and/or MAG REPLACEMENT MC SCH ×2 (08:00→20:00)
[2023-04-30] MEDS: insulin Lispro (HumaLOG) vial - multi-dose SQ SCH ×3 (08:50→21:55)
[2023-04-30] MEDS: atorvastatin 20mg tablet PO SCH (08:55)
[2023-04-30] MEDS: metoprolol tartrate 25mg tablet PO SCH (08:56)
[2023-04-30] MEDS: pantoprazole 40mg Tablet.DR PO SCH ×2 (08:56→18:47)
[2023-04-30] MEDS: losartan 50mg tablet PO SCH (08:56)
--- NOTE | 2023-04-30 17:00 | NUR ---
SALES PERFORMANCE MANAGER documentation: I have reviewed and agree with all interventions, assessments performed and documented by Anthony Salgado LVN .
[2023-04-30 17:06] LABS: TOTAL CELLS COUNTED 100
[2023-04-30 17:07] LABS: ANISOCYTOSIS 1+; PLATELET ESTIMATE INCREASED
[2023-04-30 18:00] VITALS: BP 189/94; PULSE 93; RESP 17; TEMP 98.7; O2SAT 96
--- NOTE | 2023-04-30 18:14 | NUR ---
Problems reprioritized. Patient report given, questions answered & plan of care reviewed with CHAR Leon.
[2023-04-30] MEDS ORDERED: insulin glargine (Lantus) pen - multi-dose SQ SCH (21:25)
--- NOTE | 2023-04-30 21:26 | NUR ---
called Dr. Chisholm to request increase in lantus. pt has been in 200's "since I've been here and I know it's not good. no one does anything about it." pt takes 22 units of lantus at home, ordered to restart protocol at 20 units tonight.
[2023-04-30 22:00] VITALS: BP 192/98; PULSE 90; RESP 18; TEMP 98.2; O2SAT 95
[2023-05-01] MEDS: hydrALAZINE 20mg/ml inj. IV SCH ×2 (00:21→08:07)
[2023-05-01 01:30] VITALS: BP 148/87; PULSE 83
[2023-05-01] MEDS: vancomycin/NS 1 GM ADD-VANTAGE 250 ML IV SCH (01:50)
--- NOTE | 2023-05-01 02:53 | NUR ---
CHAR documentation: I have reviewed and agree with the assessment performed and documented by CHAR Leon, unless otherwise noted in the chart .
[2023-05-01 06:00] VITALS: BP 169/88; PULSE 89; RESP 15; TEMP 98.1; O2SAT 97
--- NOTE | 2023-05-01 06:18 | NUR ---
Problems reprioritized. Patient report given, questions answered & plan of care reviewed with Reva BESS.
--- NOTE | 2023-05-01 06:52 | NUR ---
Patient in room ORTHO 4007. I have received report from Edward and had the opportunity to ask questions and assume patient care.
[2023-05-01] MEDS: K and/or MAG REPLACEMENT MC SCH (07:01)
[2023-05-01] MEDS: enoxaparin 40mg/0.4ml syringe SUBCUT SCH (08:00)
[2023-05-01] MEDS: metoprolol tartrate 25mg tablet PO SCH (08:05)
[2023-05-01] MEDS: pantoprazole 40mg Tablet.DR PO SCH (08:05)
[2023-05-01] MEDS: losartan 50mg tablet PO SCH (08:05)
[2023-05-01] MEDS: atorvastatin 20mg tablet PO SCH (08:05)
[2023-05-01] MEDS: insulin Lispro (HumaLOG) vial - multi-dose SQ SCH ×2 (08:15→13:15)
[2023-05-01 10:00] VITALS: BP 149/77; PULSE 88; RESP 16; TEMP 98.8; O2SAT 97
== END 2023-05-01 13:56 | disposition home health service (06) | DRG 871 ==
LOC: ER 09:14 → ED HOLD 13:14 → ORTHO 4S 16:15
PROVIDERS: ADMIT Internal Medicine; ATTEND Internal Medicine
PROC: 02HV33Z Insertion of Infusion Device into Superior Vena Cava, Percutaneous Approach (ICD-10-PCS; principal; 2023-05-01)
DX: A41.02 Sepsis due to Methicillin resistant Staphylococcus aureus (principal); E10.10 Type 1 diabetes mellitus with ketoacidosis without coma; N17.9 Acute kidney failure, unspecified; M86.8X7 Other osteomyelitis, ankle and foot; E10.621 Type 1 diabetes mellitus with foot ulcer; N18.9 Chronic kidney disease, unspecified; L97.519 Non-pressure chronic ulcer of other part of right foot with unspecified severity; E78.00 Pure hypercholesterolemia, unspecified; E10.65 Type 1 diabetes mellitus with hyperglycemia; L97.509 Non-pressure chronic ulcer of other part of unspecified foot with unspecified severity; K21.9 Gastro-esophageal reflux disease without esophagitis; J44.9 Chronic obstructive pulmonary disease, unspecified; Z20.822 Contact with and (suspected) exposure to COVID-19; I12.9 Hypertensive chronic kidney disease with stage 1 through stage 4 chronic kidney disease, or unspecified chronic kidney disease; E10.22 Type 1 diabetes mellitus with diabetic chronic kidney disease; E10.69 Type 1 diabetes mellitus with other specified complication; K44.9 Diaphragmatic hernia without obstruction or gangrene; Z79.4 Long term (current) use of insulin; Z79.899 Other long term (current) drug therapy; Z89.512 Acquired absence of left leg below knee; Z91.199 Patient's noncompliance with other medical treatment and regimen due to unspecified reason
CPT/HCPCS: 36415; 36569; 36600; 71045; 76942; 80048; 80053; 80202; 81001; 82009; 82607; 82728; 82803; 82948; 83036; 83540; 83550; 83605; 83735; 84100; 84145; 85007; 85018; 85025; 87040; 87077; 87081; 87186; 87502; 87503; 87811; 93306; 96361; 96374; 99285; A4615; A4649; A6196; A6253; A6258; A6446; A6449; C1751; G0378; J0360; J0780; J1650; J1815; J2405; J2543; J3370; J7030; J7040

== ENCOUNTER 2023-10-21 11:42 | Inpatient (IN) | payer MEDICARE, MEDICAID ==
[~2023-10-21] VITALS: Ht 195.6 cm; Wt 117.7 kg
[~2023-10-21 11:42] MED LIST changes: -LEVO-65 PO; +METO25TA6 PO
[2023-10-21] MEDS: piperacillin/tazo 3.375gm/50ml 50 ML IV ONE (13:25)
[2023-10-21] MEDS: normal saline 1000ML IV soln IV ONE (13:25)
[2023-10-21 14:26] LABS: BASOPHILS # (AUTO) 0.1 X10'3 (0-0.2); BASOPHILS % (AUTO) 0.6 % (0-1); EOSINOPHILS # (AUTO) 0.3 X10'3 (0-0.9); EOSINOPHILS % (AUTO) 1.8 % (0-6); HEMATOCRIT 24.7 % (42.0-52.0); HEMOGLOBIN 7.6 g/dl (14.0-17.9); LYMPHOCYTES # (AUTO) 1.1 X10'3 (1.1-4.8); LYMPHOCYTES % (AUTO) 7.9 % (21-51); MEAN CORPUSCULAR HEMOGLOBIN 22.1 PG (27.0-31.0); MEAN CORPUSCULAR HGB CONC 30.9 g/dL (33.0-36.5); MEAN CORPUSCULAR VOLUME 71.7 FL (78-98); MONOCYTES # (AUTO) 1.4 X10'3 (0-0.9); MONOCYTES % (AUTO) 9.9 % (2-12); NEUTROPHILS # (AUTO) 11.6 X10'3 (1.8-7.7); NEUTROPHILS % (AUTO) 79.8 % (42-75); PLATELET COUNT 599 X10'3 (140-440); RED BLOOD COUNT 3.44 X10'6 (4.70-6.10); WHITE BLOOD COUNT 14.5 X10'3 (4.5-11.0)
[2023-10-21 14:33] LABS: ALBUMIN 2.3 G/DL (3.4-5.0); ANION GAP 8 (8-16); BLOOD UREA NITROGEN 21 MG/DL (7-18); BUN/CREATININE RATIO 9.8 (10.0-20.0); CALCIUM 8.8 MG/DL (8.5-10.1); CHLORIDE 96 MMOL/L (99-107); CREATININE 2.14 MG/DL (0.60-1.10); GLUCOSE 219 MG/DL (70-104); MAGNESIUM 1.9 MG/DL (1.5-2.4); POTASSIUM 3.1 MMOL/L (3.5-5.1); SODIUM 136 MMOL/L (135-145); TOTAL CARBON DIOXIDE 31.6 MMOL/L (24-32); eCRCL 56 ML/MIN; eGFR 34 ML/MIN
[2023-10-21 15:08] LABS: C-REACTIVE PROTEIN 14.03 MG/DL (0.0-0.5)
[2023-10-21 15:10] LABS: ANISOCYTOSIS 2+; MICROCYTOSIS 1+; PLATELET ESTIMATE INCREASED
[2023-10-21 15:11] LABS: HYPOCHROMASIA 1+
[2023-10-21] MEDS ORDERED: potassium Cl 40MEQ/1/2NS 520ml 520 ML IV PRN (18:05)
[2023-10-21] MEDS: normal saline 1000ml 1,000 ML IV SCH (18:05)
[2023-10-21] MEDS ORDERED: acetaminophen 325mg tablet PO PRN (18:05)
[2023-10-21] MEDS ORDERED: magnesium 4gm in 100ml NS 100 ML IV PRN (18:05)
[2023-10-21] MEDS ORDERED: magnesium 2GM in 50ml NS 50 ML IV PRN (18:05)
[2023-10-21] MEDS ORDERED: potassium Cl 20 mEq SR tablet PO PRN (18:05)
[2023-10-21] MEDS ORDERED: magnesium Cl slow-release 64mg tablet PO PRN (18:05)
[2023-10-21] MEDS: vancomycin 1,750 MG in NS 350ml IV soln IV ONE (19:27)
[2023-10-21] MEDS: K and/or MAG REPLACEMENT MC SCH (20:00)
[2023-10-21] MEDS: potassium Cl 20 mEq SR tablet PO PRN (20:37)
[2023-10-21 22:30] VITALS: BP 165/77; PULSE 96; RESP 16; TEMP 96.9
[2023-10-21 23:15] LABS: HEMOGLOBIN A1C 9.6 % (4.5-6.2)
[2023-10-21] MEDS: piperacillin/tazo 3.375gm/50ml 50 ML IV SCH (23:37)
[2023-10-21 23:57] VITALS: RESP 16; O2SAT 98
[2023-10-22] VITALS (13 sets, daily range): BP systolic 142–161; BP diastolic 70–83; PULSE 78–85; RESP 14–18; TEMP 97.4–98.3; O2SAT 95–97
[2023-10-22] MEDS ORDERED: ceFAZolin/D5W- 1GM premix 50 ML IV SCH
[2023-10-22 06:55] LABS: BASOPHILS # (AUTO) 0.1 X10'3 (0-0.2); BASOPHILS % (AUTO) 0.8 % (0-1); EOSINOPHILS # (AUTO) 0.5 X10'3 (0-0.9); EOSINOPHILS % (AUTO) 4.3 % (0-6); LYMPHOCYTES # (AUTO) 1.1 X10'3 (1.1-4.8); LYMPHOCYTES % (AUTO) 9.8 % (21-51); MEAN CORPUSCULAR HEMOGLOBIN 23.1 PG (27.0-31.0); MEAN CORPUSCULAR HGB CONC 32.1 g/dL (33.0-36.5); MEAN CORPUSCULAR VOLUME 71.9 FL (78-98); MEAN PLATELET VOLUME 7.2 FL (7.4-10.4); MONOCYTES # (AUTO) 1.1 X10'3 (0-0.9); MONOCYTES % (AUTO) 10.2 % (2-12); NEUTROPHILS # (AUTO) 8.3 X10'3 (1.8-7.7); NEUTROPHILS % (AUTO) 74.9 % (42-75); PLATELET COUNT 585 X10'3 (140-440); RED BLOOD COUNT 2.69 X10'6 (4.70-6.10); RED CELL DISTRIBUTION WIDTH 19.5 % (11.5-14.5); WHITE BLOOD COUNT 11.1 X10'3 (4.5-11.0)
[2023-10-22 06:59] LABS: HEMATOCRIT 19.3 % (42.0-52.0); HEMOGLOBIN 6.2 g/dl (14.0-17.9)
[2023-10-22 07:07] LABS: ALBUMIN 1.8 G/DL (3.4-5.0); ANION GAP 6 (8-16); BLOOD UREA NITROGEN 19 MG/DL (7-18); BUN/CREATININE RATIO 9.4 (10.0-20.0); CALCIUM 7.5 MG/DL (8.5-10.1); CHLORIDE 99 MMOL/L (99-107); CREATININE 2.03 MG/DL (0.60-1.10); GLUCOSE 306 MG/DL (70-104); MAGNESIUM 1.9 MG/DL (1.5-2.4); POTASSIUM 3.6 MMOL/L (3.5-5.1); SODIUM 134 MMOL/L (135-145); TOTAL CARBON DIOXIDE 28.7 MMOL/L (24-32); eCRCL 59 ML/MIN; eGFR 36 ML/MIN
[2023-10-22] MEDS: vancomycin/NS 1 GM ADD-VANTAGE 250 ML IV SCH (07:31)
[2023-10-22] MEDS ORDERED: insulin Lispro (HumaLOG) vial - multi-dose SQ SCH (11:55)
[2023-10-22] MEDS ORDERED: dextrose 50%-water 50ml dispensing syringe IV PRN (11:55)
[2023-10-22] MEDS ORDERED: DEXTROSE 15 GM of carb/4 tabs (each vial/BOTTLE has 4 tablets) PO PRN ×2 (11:55)
[2023-10-22] MEDS ORDERED: glucagon, human recombinant 1mg kit SUBCUT PRN (11:55)
[2023-10-22] MEDS: MESSAGE TO PHARMACY PO ONE (11:59)
[2023-10-22] MEDS: JUVEN Smoothie Arginine/Glut./Ca2+Bmb (Juven 19.3pkt) 240ml cup PO SCH (13:06)
[2023-10-22] MEDS: insulin Lispro (HumaLOG) vial - multi-dose SQ SCH (13:36)
[2023-10-22] MEDS ORDERED: oxyCODONE/APAP 5-325mg tablet PO PRN (20:20)
[2023-10-22] MEDS: insulin glargine (Lantus) pen - multi-dose SQ SCH (22:34)
[2023-10-23] VITALS (10 sets, daily range): BP systolic 161–183; BP diastolic 80–102; PULSE 77–85; RESP 14–18; TEMP 97.6–99; O2SAT 96–98
[2023-10-23 02:17] LABS: BASOPHILS # (AUTO) 0.1 X10'3 (0-0.2); BASOPHILS % (AUTO) 0.9 % (0-1); EOSINOPHILS # (AUTO) 0.8 X10'3 (0-0.9); EOSINOPHILS % (AUTO) 8.8 % (0-6); LYMPHOCYTES # (AUTO) 1.2 X10'3 (1.1-4.8); LYMPHOCYTES % (AUTO) 13.2 % (21-51); MEAN CORPUSCULAR HEMOGLOBIN 23.1 PG (27.0-31.0); MEAN CORPUSCULAR HGB CONC 32.1 g/dL (33.0-36.5); MONOCYTES # (AUTO) 1.1 X10'3 (0-0.9); MONOCYTES % (AUTO) 11.3 % (2-12); NEUTROPHILS # (AUTO) 6.1 X10'3 (1.8-7.7); NEUTROPHILS % (AUTO) 65.8 % (42-75); PLATELET COUNT 608 X10'3 (140-440); RED BLOOD COUNT 3.02 X10'6 (4.70-6.10); RED CELL DISTRIBUTION WIDTH 19.4 % (11.5-14.5); WHITE BLOOD COUNT 9.3 X10'3 (4.5-11.0)
[2023-10-23 02:21] LABS: HEMATOCRIT 21.7 % (42.0-52.0)
[2023-10-23 02:26] LABS: ALBUMIN 1.9 G/DL (3.4-5.0); ANION GAP 7 (8-16); BLOOD UREA NITROGEN 18 MG/DL (7-18); BUN/CREATININE RATIO 9.7 (10.0-20.0); CALCIUM 7.9 MG/DL (8.5-10.1); CHLORIDE 101 MMOL/L (99-107); CREATININE 1.85 MG/DL (0.60-1.10); GLUCOSE 304 MG/DL (70-104); MAGNESIUM 1.9 MG/DL (1.5-2.4); POTASSIUM 3.4 MMOL/L (3.5-5.1); SODIUM 136 MMOL/L (135-145); TOTAL CARBON DIOXIDE 27.6 MMOL/L (24-32); eCRCL 64 ML/MIN; eGFR 40 ML/MIN
[2023-10-23 03:03] LABS: ANISOCYTOSIS 2+; MICROCYTOSIS 1+; PLATELET ESTIMATE INCREASED
[2023-10-23 03:05] LABS: HYPOCHROMASIA 1+
[2023-10-23] MEDS: VANCOMYCIN LEVEL IV ONE (07:30)
[2023-10-23] MEDS: VANCOMYCIN 750MG IV in NS 250 ML IV SCH (09:00)
[2023-10-23] MEDS: amLODIPine 5mg tablet PO SCH (18:17)
[2023-10-24] MEDS ORDERED: INSU100I29 (00:12)
[2023-10-24] MEDS ORDERED: INSU100I38 (00:14)
[2023-10-24] MEDS: metoprolol tartrate 25mg tablet PO ONE (02:41)
[2023-10-24 06:00] VITALS: BP 168/92; PULSE 83; RESP 18; TEMP 98; O2SAT 99
[2023-10-24 08:00] VITALS: BP 176/93; PULSE 80; RESP 16; O2SAT 99
[2023-10-24] MEDS: metoprolol tartrate 25mg tablet PO SCH (08:16)
[2023-10-24] MEDS: losartan 50mg tablet PO SCH (08:17)
[2023-10-24] MEDS: chlorthalidone 25mg tablet PO SCH (08:17)
[2023-10-24 09:26] LABS: BASOPHILS # (AUTO) 0.1 X10'3 (0-0.2); EOSINOPHILS # (AUTO) 0.7 X10'3 (0-0.9); EOSINOPHILS % (AUTO) 8.9 % (0-6); HEMATOCRIT 23.7 % (42.0-52.0); HEMOGLOBIN 7.6 g/dl (14.0-17.9); LYMPHOCYTES # (AUTO) 1.1 X10'3 (1.1-4.8); LYMPHOCYTES % (AUTO) 14.2 % (21-51); MEAN CORPUSCULAR HEMOGLOBIN 23.2 PG (27.0-31.0); MEAN CORPUSCULAR VOLUME 72.7 FL (78-98); MEAN PLATELET VOLUME 7.3 FL (7.4-10.4); MONOCYTES # (AUTO) 0.9 X10'3 (0-0.9); MONOCYTES % (AUTO) 11.9 % (2-12); PLATELET COUNT 582 X10'3 (140-440); RED BLOOD COUNT 3.26 X10'6 (4.70-6.10); RED CELL DISTRIBUTION WIDTH 18.9 % (11.5-14.5); WHITE BLOOD COUNT 7.8 X10'3 (4.5-11.0)
[2023-10-24 10:00] VITALS: BP 168/87; PULSE 77; RESP 16; TEMP 97.8; O2SAT 98
[2023-10-24] MEDS ORDERED: hydrALAZINE 20mg/ml inj. IV PRN (10:20)
[2023-10-24 11:23] LABS: ALBUMIN 1.8 G/DL (3.4-5.0); ANION GAP 7 (8-16); BLOOD UREA NITROGEN 12 MG/DL (7-18); BUN/CREATININE RATIO 7.6 (10.0-20.0); CALCIUM 8.7 MG/DL (8.5-10.1); CHLORIDE 103 MMOL/L (99-107); CREATININE 1.57 MG/DL (0.60-1.10); GLUCOSE 245 MG/DL (70-104); POTASSIUM 3.6 MMOL/L (3.5-5.1); SODIUM 139 MMOL/L (135-145); TOTAL CARBON DIOXIDE 29.1 MMOL/L (24-32); eCRCL 76 ML/MIN; eGFR 48 ML/MIN
[2023-10-24] MEDS: ringers solution, lacted 1,000 ML IV ONE (14:34)
[2023-10-24 18:00] VITALS: BP 180/89; PULSE 81; RESP 16; TEMP 97.3; O2SAT 98
[2023-10-24] MEDS: mag hydrox/Alum hydrox/simeth 30ml oral suspension PO PRN (18:03)
[2023-10-24] MEDS: pantoprazole 40 MG vial IV SCH (19:12)
[2023-10-24] MEDS: VANCOMYCIN LEVEL IJ ONE (20:30)
[2023-10-24 22:00] VITALS: BP 167/85; PULSE 86; RESP 18; TEMP 98; O2SAT 96
[2023-10-25 06:00] VITALS: BP 161/82; PULSE 86; RESP 18; TEMP 97.8; O2SAT 97
[2023-10-25 06:56] LABS: BASOPHILS # (AUTO) 0.1 X10'3 (0-0.2); EOSINOPHILS # (AUTO) 0.7 X10'3 (0-0.9); EOSINOPHILS % (AUTO) 9.5 % (0-6); HEMATOCRIT 22.6 % (42.0-52.0); HEMOGLOBIN 7.4 g/dl (14.0-17.9); LYMPHOCYTES # (AUTO) 1.3 X10'3 (1.1-4.8); LYMPHOCYTES % (AUTO) 16.8 % (21-51); MEAN CORPUSCULAR HEMOGLOBIN 23.8 PG (27.0-31.0); MEAN CORPUSCULAR HGB CONC 32.6 g/dL (33.0-36.5); MEAN PLATELET VOLUME 6.9 FL (7.4-10.4); MONOCYTES # (AUTO) 0.8 X10'3 (0-0.9); MONOCYTES % (AUTO) 10.8 % (2-12); NEUTROPHILS # (AUTO) 4.8 X10'3 (1.8-7.7); NEUTROPHILS % (AUTO) 61.9 % (42-75); PLATELET COUNT 598 X10'3 (140-440); RED CELL DISTRIBUTION WIDTH 18.9 % (11.5-14.5); WHITE BLOOD COUNT 7.7 X10'3 (4.5-11.0)
[2023-10-25 07:08] LABS: ALBUMIN 1.7 G/DL (3.4-5.0); ANION GAP 5 (8-16); BLOOD UREA NITROGEN 10 MG/DL (7-18); BUN/CREATININE RATIO 6.1 (10.0-20.0); CALCIUM 8.7 MG/DL (8.5-10.1); CHLORIDE 105 MMOL/L (99-107); CREATININE 1.63 MG/DL (0.60-1.10); GLUCOSE 151 MG/DL (70-104); POTASSIUM 3.5 MMOL/L (3.5-5.1); SODIUM 141 MMOL/L (135-145); TOTAL CARBON DIOXIDE 31.4 MMOL/L (24-32); eCRCL 73 ML/MIN; eGFR 46 ML/MIN
[2023-10-25 08:00] VITALS: RESP 16; O2SAT 97
[2023-10-25 10:00] VITALS: BP 167/87; PULSE 73; RESP 16; O2SAT 99
[2023-10-25] MEDS: ringers solution, lacted 1,000 ML IV ONE (14:00)
[2023-10-25] MEDS: lactose-reduced food (Ensure Enlive) - 237ml bottle PO SCH (17:25)
[2023-10-25] MEDS ORDERED: lactose-reduced food (Ensure Enlive) - 237ml bottle PO SCH (17:30)
[2023-10-25 19:27] LABS: OCCULT BLOOD STOOL NEGATIVE (Neg)
[2023-10-25 21:30] VITALS: BP 163/87; PULSE 108; RESP 16; TEMP 98; O2SAT 98
[2023-10-26] VITALS (18 sets, daily range): BP systolic 123–168; BP diastolic 56–91; PULSE 69–85; RESP 13–26; TEMP 97–98.6; O2SAT 90–99
[2023-10-26] MEDS ORDERED: vancomycin 1,000mg inj ONE (06:49)
[2023-10-26 07:03] LABS: ALBUMIN 1.8 G/DL (3.4-5.0); ANION GAP 7 (8-16); BLOOD UREA NITROGEN 13 MG/DL (7-18); BUN/CREATININE RATIO 7.1 (10.0-20.0); CHLORIDE 108 MMOL/L (99-107); CREATININE 1.83 MG/DL (0.60-1.10); GLUCOSE 191 MG/DL (70-104); POTASSIUM 3.4 MMOL/L (3.5-5.1); SODIUM 142 MMOL/L (135-145); TOTAL CARBON DIOXIDE 27.1 MMOL/L (24-32); eCRCL 65 ML/MIN; eGFR 40 ML/MIN
[2023-10-26 07:04] LABS: INR 1.1 INR; PROTHROMBIN TIME 11.7 SECONDS (9.0-12.0)
[2023-10-26] MEDS ORDERED: hydrALAZINE 20mg/ml inj. IV PRN (07:10)
[2023-10-26] MEDS ORDERED: labetalol 20mg/4ml (5mg/ml) syringe IV PRN (07:10)
[2023-10-26] MEDS ORDERED: fentaNYL/PF 50MCG/1 ML 2ML syringe ONE (07:16)
[2023-10-26 07:17] LABS: BASOPHILS # (AUTO) 0.1 X10'3 (0-0.2); EOSINOPHILS # (AUTO) 0.7 X10'3 (0-0.9); LYMPHOCYTES # (AUTO) 1.3 X10'3 (1.1-4.8); MONOCYTES # (AUTO) 1.1 X10'3 (0-0.9)
[2023-10-26] MEDS ORDERED: ondansetron/PF 4mg/2ml inj ONE ×2 (07:17→07:18)
[2023-10-26] MEDS ORDERED: MIDAZolam 1 MG/ML 5ML VIAL ONE (07:17)
[2023-10-26 07:18] LABS: BASOPHILS % (AUTO) 0.9 % (0-1); LYMPHOCYTES % (AUTO) 12.9 % (21-51); MEAN CORPUSCULAR HGB CONC 32.8 g/dL (33.0-36.5); MEAN CORPUSCULAR VOLUME 73.2 FL (78-98); MEAN PLATELET VOLUME 7.3 FL (7.4-10.4); MONOCYTES % (AUTO) 10.6 % (2-12); NEUTROPHILS # (AUTO) 7.1 X10'3 (1.8-7.7); NEUTROPHILS % (AUTO) 68.6 % (42-75); PLATELET COUNT 625 X10'3 (140-440); RED BLOOD COUNT 2.91 X10'6 (4.70-6.10); RED CELL DISTRIBUTION WIDTH 19.2 % (11.5-14.5); WHITE BLOOD COUNT 10.3 X10'3 (4.5-11.0)
[2023-10-26] MEDS ORDERED: propofol inj 20 ML IV ONE ×2 (07:18→08:51)
[2023-10-26] MEDS ORDERED: LIDOcaine 2% (20mg/ml) 5ml vial ONE (07:18)
[2023-10-26 07:25] LABS: HEMATOCRIT 21.3 % (42.0-52.0)
[2023-10-26] MEDS ORDERED: sevoflurane 250ml liquid IH ONE (07:39)
[2023-10-26] MEDS: amLODIPine 5mg tablet PO SCH (08:00)
[2023-10-26 08:32] LABS: ANISOCYTOSIS 2+; HYPOCHROMASIA 1+; MICROCYTOSIS 1+; PLATELET ESTIMATE INCREASED
[2023-10-26] MEDS ORDERED: ROPIVAcaine 0.5% (5mg/ml) 30ml vial ONE ×2 (08:42)
[2023-10-26] MEDS: vancomycin 1,000mg inj ONE (08:50)
[2023-10-26] MEDS ORDERED: tranexamic acid 100mg/ml inj. ONE (09:29)
[2023-10-26] MEDS: morphine 4 MG/ML inj SYRINge IV PRN (09:46)
[2023-10-26] MEDS: morphine 2 MG/ML inj. syringe IV PRN (10:09)
[2023-10-26] MEDS: oxyCODONE/APAP 10/325mg tablet PO PRN (10:09)
[2023-10-26] MEDS: tranexamic acid inj. 1,000 MG in normal saline 100ml IV soln 90 ML IV ONE (10:10)
[2023-10-26] MEDS ORDERED: naloxone 0.4 mg/ml inj IV PRN (10:30)
[2023-10-26] MEDS: HYDROmorphone/PF 0.2 MG/ML SYRINGE IV PRN (10:34)
[2023-10-26] MEDS: acetaminophen 1,000mg/100ml IV 100 ML IV ONE (10:51)
[2023-10-26] MEDS: HYDROmorph/NS 0.2 mg/ml PCA 100 ML IV SCH (11:24)
[2023-10-26] MEDS: ondansetron/PF 4mg/2ml inj IV PRN ×2 (11:29→19:27)
[2023-10-26] MEDS: normal saline 1000ml 1,000 ML IV SCH (13:50)
[2023-10-26] MEDS: ringers solution, lacted 1,000 ML IV SCH (13:51)
[2023-10-26] MEDS: metoclopramide 5 mg/ml inj IV PRN (13:54)
[2023-10-26] MEDS ORDERED: potassium Cl 40MEQ/1/2NS 520ml 520 ML IV PRN (18:40)
[2023-10-26] MEDS ORDERED: potassium Cl 20 mEq SR tablet PO PRN ×2 (18:40)
[2023-10-26] MEDS: docusate sod 100mg capsule PO SCH (19:26)
[2023-10-26] MEDS: sennosides/docusate sodium tablet PO SCH (19:26)
[2023-10-26] MEDS: loratadine 10mg tablet PO SCH (19:27)
[2023-10-26] MEDS: potassium Cl 40MEQ/1/2NS 520ml 520 ML IV PRN (22:17)
[2023-10-26 22:37] LABS: HEMATOCRIT 22.8 % (42.0-52.0); HEMOGLOBIN 7.4 g/dl (14.0-17.9); MEAN CORPUSCULAR HEMOGLOBIN 24.5 PG (27.0-31.0); MEAN CORPUSCULAR HGB CONC 32.7 g/dL (33.0-36.5); MEAN CORPUSCULAR VOLUME 74.9 FL (78-98); MEAN PLATELET VOLUME 6.9 FL (7.4-10.4); PLATELET COUNT 546 X10'3 (140-440); RED BLOOD COUNT 3.04 X10'6 (4.70-6.10); RED CELL DISTRIBUTION WIDTH 19.1 % (11.5-14.5); WHITE BLOOD COUNT 8.3 X10'3 (4.5-11.0)
[2023-10-27] VITALS (11 sets, daily range): BP systolic 137–164; BP diastolic 68–86; PULSE 77–86; RESP 15–18; TEMP 97.9–98.8; O2SAT 94–98
[2023-10-27 13:09] LABS: BASOPHILS # (AUTO) 0.1 X10'3 (0-0.2); BASOPHILS % (AUTO) 0.7 % (0-1); EOSINOPHILS # (AUTO) 0.5 X10'3 (0-0.9); EOSINOPHILS % (AUTO) 6.1 % (0-6); HEMATOCRIT 22.2 % (42.0-52.0); HEMOGLOBIN 7.2 g/dl (14.0-17.9); LYMPHOCYTES # (AUTO) 1.2 X10'3 (1.1-4.8); MEAN CORPUSCULAR HEMOGLOBIN 24.1 PG (27.0-31.0); MEAN CORPUSCULAR HGB CONC 32.2 g/dL (33.0-36.5); MEAN CORPUSCULAR VOLUME 74.9 FL (78-98); MEAN PLATELET VOLUME 6.8 FL (7.4-10.4); MONOCYTES # (AUTO) 1.1 X10'3 (0-0.9); MONOCYTES % (AUTO) 13.3 % (2-12); NEUTROPHILS # (AUTO) 5.3 X10'3 (1.8-7.7); NEUTROPHILS % (AUTO) 64.9 % (42-75); PLATELET COUNT 547 X10'3 (140-440); RED BLOOD COUNT 2.96 X10'6 (4.70-6.10); RED CELL DISTRIBUTION WIDTH 19.4 % (11.5-14.5); WHITE BLOOD COUNT 8.1 X10'3 (4.5-11.0)
[2023-10-27 13:19] LABS: ALBUMIN 1.9 G/DL (3.4-5.0); ANION GAP 4 (8-16); BLOOD UREA NITROGEN 12 MG/DL (7-18); BUN/CREATININE RATIO 6.6 (10.0-20.0); CALCIUM 7.8 MG/DL (8.5-10.1); CHLORIDE 105 MMOL/L (99-107); CREATININE 1.83 MG/DL (0.60-1.10); GLUCOSE 165 MG/DL (70-104); POTASSIUM 3.6 MMOL/L (3.5-5.1); SODIUM 138 MMOL/L (135-145); TOTAL CARBON DIOXIDE 28.8 MMOL/L (24-32); eCRCL 65 ML/MIN; eGFR 40 ML/MIN
[2023-10-27] MEDS: dextrose 50%-water 50ml dispensing syringe IV PRN (16:32)
[2023-10-27] MEDS: pantoprazole 40mg Tablet.DR PO SCH (21:31)
[2023-10-28] VITALS (9 sets, daily range): BP systolic 126–187; BP diastolic 84–94; PULSE 71–84; RESP 15–18; TEMP 96.5–98.5; O2SAT 94–99
[2023-10-28] MEDS: NORMAL SALINE IV SCH (07:51)
[2023-10-28] MEDS: DAPTOMYCIN IV SCH (07:51)
[2023-10-28] MEDS: dextrose 5%-normal saline 1,000 ML IV SCH (11:25)
[2023-10-28 11:29] LABS: BASOPHILS % (AUTO) 0.6 % (0-1); EOSINOPHILS # (AUTO) 0.4 X10'3 (0-0.9); EOSINOPHILS % (AUTO) 5.7 % (0-6); HEMOGLOBIN 8.2 g/dl (14.0-17.9); LYMPHOCYTES # (AUTO) 1.3 X10'3 (1.1-4.8); LYMPHOCYTES % (AUTO) 16.8 % (21-51); MEAN CORPUSCULAR HEMOGLOBIN 24.8 PG (27.0-31.0); MEAN CORPUSCULAR HGB CONC 32.7 g/dL (33.0-36.5); MEAN CORPUSCULAR VOLUME 75.7 FL (78-98); MEAN PLATELET VOLUME 6.6 FL (7.4-10.4); MONOCYTES % (AUTO) 13.1 % (2-12); NEUTROPHILS % (AUTO) 63.8 % (42-75); PLATELET COUNT 536 X10'3 (140-440); RED CELL DISTRIBUTION WIDTH 19.4 % (11.5-14.5); WHITE BLOOD COUNT 7.8 X10'3 (4.5-11.0)
[2023-10-28 11:39] LABS: ALANINE AMINOTRANSFERASE 8 U/L (12-78); ALBUMIN 1.9 G/DL (3.4-5.0); ALBUMIN/GLOBULIN RATIO 0.4 (1.1-1.5); ALKALINE PHOSPHATASE 93 IU/L (46-116); ANION GAP 7 (8-16); ASPARTATE AMINO TRANSFERASE 12 U/L (10-37); BILIRUBIN,TOTAL 0.5 MG/DL (0.1-1.0); BLOOD UREA NITROGEN 12 MG/DL (7-18); BUN/CREATININE RATIO 6.7 (10.0-20.0); C-REACTIVE PROTEIN 8.56 MG/DL (0.0-0.5); CALCIUM 8.2 MG/DL (8.5-10.1); CHLORIDE 106 MMOL/L (99-107); CREATINE KINASE 128 U/L (39-308); GLUCOSE 91 MG/DL (70-104); POTASSIUM 3.7 MMOL/L (3.5-5.1); SODIUM 141 MMOL/L (135-145); TOTAL CARBON DIOXIDE 28.3 MMOL/L (24-32); TOTAL PROTEIN 7.1 G/DL (6.4-8.2); eCRCL 66 ML/MIN; eGFR 41 ML/MIN
[2023-10-29 06:00] VITALS: BP 162/82; PULSE 83; RESP 15; TEMP 98.2; O2SAT 95
[2023-10-29 10:00] VITALS: BP 184/100; PULSE 83; RESP 18; TEMP 98; O2SAT 96
[2023-10-29] MEDS: PCA WASTE DOCUMENTATION 1 MG ML MC SCH (10:17)
[2023-10-29] MEDS ORDERED: OXYC-150 PO (15:56)
== END 2023-10-29 15:55 | disposition home health service (06) | DRG 853 ==
LOC: ER 11:43 → ED HOLD 18:06 → EDBEDREQ 21:51 → ORTHO 4S 22:27
PROVIDERS: ADMIT Internal Medicine; ATTEND Internal Medicine
PROC: 30233N1 Transfusion of Nonautologous Red Blood Cells into Peripheral Vein, Percutaneous Approach (ICD-10-PCS; 2023-10-22)
PROC: 0Y6H0Z1 Detachment at Right Lower Leg, High, Open Approach (ICD-10-PCS; principal; 2023-10-26 07:39)
PROC: 05HC33Z Insertion of Infusion Device into Left Basilic Vein, Percutaneous Approach (ICD-10-PCS; 2023-10-29)
DX: A41.02 Sepsis due to Methicillin resistant Staphylococcus aureus (principal); N17.0 Acute kidney failure with tubular necrosis; M86.8X7 Other osteomyelitis, ankle and foot; L03.115 Cellulitis of right lower limb; E10.69 Type 1 diabetes mellitus with other specified complication; E87.6 Hypokalemia; K31.84 Gastroparesis; N18.9 Chronic kidney disease, unspecified; E78.00 Pure hypercholesterolemia, unspecified; I12.9 Hypertensive chronic kidney disease with stage 1 through stage 4 chronic kidney disease, or unspecified chronic kidney disease; L97.509 Non-pressure chronic ulcer of other part of unspecified foot with unspecified severity; D64.9 Anemia, unspecified; E10.22 Type 1 diabetes mellitus with diabetic chronic kidney disease; E10.43 Type 1 diabetes mellitus with diabetic autonomic (poly)neuropathy; J44.9 Chronic obstructive pulmonary disease, unspecified; E10.621 Type 1 diabetes mellitus with foot ulcer; L97.519 Non-pressure chronic ulcer of other part of right foot with unspecified severity; K21.9 Gastro-esophageal reflux disease without esophagitis; Z87.11 Personal history of peptic ulcer disease; Z79.4 Long term (current) use of insulin; Z88.5 Allergy status to narcotic agent; Z79.899 Other long term (current) drug therapy; I25.2 Old myocardial infarction; Z86.73 Personal history of transient ischemic attack (TIA), and cerebral infarction without residual deficits; Z89.512 Acquired absence of left leg below knee; Z88.1 Allergy status to other antibiotic agents; Z88.8 Allergy status to other drugs, medicaments and biological substances; Z82.5 Family history of asthma and other chronic lower respiratory diseases
CPT/HCPCS: 36410; 36415; 36430; 71045; 71250; 73630; 73700; 74176; 76937; 80048; 80053; 80202; 82272; 82550; 82948; 83036; 83605; 83735; 84145; 85008; 85025; 85027; 85610; 85651; 86140; 86885; 86900; 86901; 86920; 87040; 87077; 87081; 87186; 93005; 93306; 97161; 97530; 99291; A4615; A4618; A4649; A6213; A6222; A6253; A6258; A6446; A6449; A7000; C1751; C9113; G0378; J0131; J0878; J1170; J1815; J2250; J2270; J2405; J2543; J2704; J2765; J2795; J3010; J3370; J3480; J3490; J7030; J7040; J7042; J7050; J7070; J7120; P9016

== ENCOUNTER 2024-11-21 10:42 | Emergency (ER) | payer MEDICARE, MEDICAID ==
[~2024-11-21] VITALS: Ht 195.6 cm; Wt 118.2 kg
[~2024-11-21 10:42] MED LIST changes: +ASPI-1397 PO; -CHLO25TA10 PO; +FURO20TA4 PO; -INSU100I31 SQ; +INSU100I38; -INSU100V39 SQ; +INSU200I4 SQ; -LOSA50TA64 PO; +METO-411 PO; -METO25TA6 PO; +METO50TA16 PO; +NIFE90TA70 PO; -ROSU40TA22 PO
[2024-11-21] MEDS: oxyCODONE/APAP 5-325mg tablet PO ONE (14:50)
[2024-11-21] MEDS: ondansetron 4mg rapidly disintigrating tab PO ONE (14:50)
[2024-11-21 14:58] LABS: BASOPHILS # (AUTO) 0.1 X10'3 (0-0.2); BASOPHILS % (AUTO) 0.7 % (0-1); EOSINOPHILS # (AUTO) 0.6 X10'3 (0-0.9); EOSINOPHILS % (AUTO) 6.1 % (0-6); HEMATOCRIT 23.9 % (42.0-52.0); HEMOGLOBIN 8.1 g/dl (14.0-17.9); LYMPHOCYTES # (AUTO) 1.1 X10'3 (1.1-4.8); LYMPHOCYTES % (AUTO) 11.8 % (21-51); MEAN CORPUSCULAR HGB CONC 33.7 g/dL (33.0-36.5); MEAN CORPUSCULAR VOLUME 83.2 FL (78-98); MEAN PLATELET VOLUME 7.2 FL (7.4-10.4); MONOCYTES # (AUTO) 0.9 X10'3 (0-0.9); MONOCYTES % (AUTO) 9.7 % (2-12); NEUTROPHILS # (AUTO) 6.8 X10'3 (1.8-7.7); NEUTROPHILS % (AUTO) 71.7 % (42-75); PLATELET COUNT 334 X10'3 (140-440); RED BLOOD COUNT 2.88 X10'6 (4.70-6.10); RED CELL DISTRIBUTION WIDTH 16.6 % (11.5-14.5); WHITE BLOOD COUNT 9.4 X10'3 (4.5-11.0)
[2024-11-21 15:03] LABS: ALANINE AMINOTRANSFERASE 11 U/L (12-78); ALBUMIN 3.2 G/DL (3.4-5.0); ALBUMIN/GLOBULIN RATIO 0.8 (1.1-1.5); ALKALINE PHOSPHATASE 79 IU/L (46-116); ANION GAP 13 (8-16); ASPARTATE AMINO TRANSFERASE 8 U/L (10-37); BILIRUBIN,TOTAL 0.4 MG/DL (0.1-1.0); BLOOD UREA NITROGEN 56 MG/DL (7-18); BUN/CREATININE RATIO 7.3 (10.0-20.0); CALCIUM 9.1 MG/DL (8.5-10.1); CHLORIDE 100 MMOL/L (99-107); CREATININE 7.66 MG/DL (0.60-1.10); GLUCOSE 181 MG/DL (70-104); SODIUM 137 MMOL/L (135-145); TOTAL CARBON DIOXIDE 24.2 MMOL/L (24-32); eCRCL 15 ML/MIN; eGFR 8 ML/MIN
[2024-11-21 16:02] LABS: APTT 27 SECONDS (22-32); PROTHROMBIN TIME 9.8 SECONDS (9.0-12.0)
[2024-11-21] MEDS ORDERED: HYDR-3973 PO (16:52)
[2024-11-21] MEDS ORDERED: CEPH-585 PO (16:52)
[2024-11-21] MEDS ORDERED: OXYC-150 PO (18:13)
[2024-11-21] MEDS: clindamycin 300mg/D5W 50mL 50 ML IV STA (18:31)
[2024-11-21] MEDS: oxyCODONE/APAP 10/325mg tablet PO ONE (18:50)
[2024-11-21] MEDS: CefTRIAXone/D5W-Rocephin 1gm 50 ML IV ONE (18:50)
[2024-11-21 19:19] VITALS: BP 136/64; PULSE 78; RESP 16; TEMP 97.6; O2SAT 99
== END 2024-11-21 19:28 | disposition home or self-care (01) ==
LOC: ER 10:43
DX: M70.42 Prepatellar bursitis, left knee (principal); S80.02XA Contusion of left knee, initial encounter; E11.9 Type 2 diabetes mellitus without complications; E78.00 Pure hypercholesterolemia, unspecified; I10 Essential (primary) hypertension; J44.9 Chronic obstructive pulmonary disease, unspecified; N19 Unspecified kidney failure; Z88.5 Allergy status to narcotic agent; Z88.1 Allergy status to other antibiotic agents; Z89.511 Acquired absence of right leg below knee; Z89.512 Acquired absence of left leg below knee; Z88.8 Allergy status to other drugs, medicaments and biological substances; Z79.82 Long term (current) use of aspirin; X58.XXXA Exposure to other specified factors, initial encounter; Y93.01 Activity, walking, marching and hiking; Y92.89 Other specified places as the place of occurrence of the external cause; Y99.8 Other external cause status
CPT/HCPCS: 10060; 36415; 73564; 80053; 83605; 84145; 85025; 85610; 85730; 87015; 87040; 87070; 87116; 87206; 96365; 96367; 99285; A6402; A6449; J0696; J3490; J7030; Z7610

== ENCOUNTER 2024-12-28 10:38 | Outpatient (CLI) | payer MEDICARE, MEDICAID ==
[~2024-12-28 10:38] MED LIST changes: +OXYC-150 PO
--- NOTE | 2024-12-28 12:48 | RADIOLOGY REPORT ---
Exam: CT CT ABDOMEN PELVIS History: END STAGE RENAL DISEASE Comparison Study: CT CT CHEST ABDOMEN PELVIS on DOS: 10/23/23 Technique: Multidetector spiral CT of the abdomen and pelvis was performed from lung bases to pubic s ymphysis. Imaging was performed without intravenous contrast. Coronal and sagittal multiplanar reform ats were obtained from the axial data set by the technologist. Radiation Dose : 1. Abdomen/Pelvis: CTDIvol 34.9 mGy, DLP 1862.3 mGy*cm. Findings: Evaluation of vasculature and solid organs is limited due to lack of intravenous contrast use. Lung Bases: Lung bases are clear. Visualized portions of the heart and pericardium are unremarkable. Liver: The liver is normal in size. No focal lesions. Gallbladder and Biliary Tree: The gallbladder is unremarkable. No intrahepatic or extrahepatic bilia ry ductal dilatation. Spleen: Unremarkable Pancreas: The pancreas is grossly unremarkable. Adrenal Glands: Unremarkable Kidneys: Bilateral perinephric fat stranding. No intrarenal calculi or hydronephrosis. GI tract: Hiatal hernia. No evidence of small bowel wall thickening or abnormal dilatation to suggest bowel obstruction. Mild wall thickening of the cecum. The appendix is visualized and is normal. Peritoneum/mesentery/retroperitoneum. No evidence of free intraperitoneal air. No ascites. Lymph nodes: Mildly prominent right lower quadrant mesenteric lymph nodes measuring up to 9 mm in giovani rt axis. Abdominal Wall: Unremarkable. Vasculature: The visualized abdominal aorta is normal in size and caliber. Evaluation of abdominal a nd pelvic vessels is limited due to lack of intravenous contrast. Urinary Bladder: Grossly unremarkable for degree of distention. Pelvic Organs: Unremarkable Musculoskeletal: No aggressive focal bony lesions, acute fractures or dislocation. IMPRESSION: 1. Mild wall thickening of the cecum which could represent colitis. An underlying lesion is not exclu ded. 2. Increased number and size of mesenteric lymph nodes in the right lower quadrant which may be react melquiades. Metastatic adenopathy not excluded. Consider colonoscopy for further evaluation when feasible.
== END 2024-12-28 23:59 | disposition home or self-care (01) ==
LOC: RAD 10:38
PROVIDERS: ATTEND Student in an Organized Health Care Education/Training Program
DX: K63.89 Other specified diseases of intestine (principal); N18.6 End stage renal disease
CPT/HCPCS: 74176

== ENCOUNTER 2025-01-10 06:30 | Day surgery (SDC) | payer MEDICARE, MEDICAID ==
[2025-01-06 13:03] LABS: BASOPHILS # (AUTO) 0.1 X10'3 (0-0.2); BASOPHILS % (AUTO) 0.9 % (0-1); EOSINOPHILS # (AUTO) 0.4 X10'3 (0-0.9); EOSINOPHILS % (AUTO) 5.1 % (0-6); HEMATOCRIT 33.8 % (42.0-52.0); HEMOGLOBIN 11.4 g/dl (14.0-17.9); LYMPHOCYTES # (AUTO) 1.3 X10'3 (1.1-4.8); LYMPHOCYTES % (AUTO) 16.5 % (21-51); MEAN CORPUSCULAR HEMOGLOBIN 31.7 PG (27.0-31.0); MEAN CORPUSCULAR HGB CONC 33.6 g/dL (33.0-36.5); MEAN CORPUSCULAR VOLUME 94.3 FL (78-98); MEAN PLATELET VOLUME 7.8 FL (7.4-10.4); MONOCYTES # (AUTO) 0.7 X10'3 (0-0.9); MONOCYTES % (AUTO) 8.1 % (2-12); NEUTROPHILS # (AUTO) 5.6 X10'3 (1.8-7.7); NEUTROPHILS % (AUTO) 69.4 % (42-75); PLATELET COUNT 363 X10'3 (140-440); RED BLOOD COUNT 3.58 X10'6 (4.70-6.10); RED CELL DISTRIBUTION WIDTH 20.3 % (11.5-14.5); WHITE BLOOD COUNT 8.1 X10'3 (4.5-11.0)
[2025-01-06 13:15] LABS: APTT 25 SECONDS (22-32); PROTHROMBIN TIME 10.1 SECONDS (9.0-12.0)
[2025-01-06 13:21] LABS: ALBUMIN 3.8 G/DL (3.4-5.0); ANION GAP 10 (8-16); ANISOCYTOSIS 3+; BLOOD UREA NITROGEN 40 MG/DL (7-18); CALCIUM 9.7 MG/DL (8.5-10.1); CHLORIDE 101 MMOL/L (99-107); CHOL/HDL RATIO 2.8 (0.00-4.99); CHOLESTEROL 167 MG/DL (0-200); CREATININE 8.04 MG/DL (0.60-1.10); GLUCOSE 252 MG/DL (70-104); HDL CHOLESTEROL 60 MG/DL (35-60); LDL CHOLESTEROL 90 MG/DL (50-100); PLATELET ESTIMATE NORMAL; POTASSIUM 4.9 MMOL/L (3.5-5.1); SODIUM 139 MMOL/L (135-145); TOTAL CARBON DIOXIDE 27.7 MMOL/L (24-32); TRIGLYCERIDES 114 MG/DL (20-135); eGFR 7 ML/MIN
[2025-01-06 13:22] LABS: POIKILOCYTOSIS 1+; POLYCHROMASIA FEW; STOMATOCYTES FEW
[~2025-01-10] VITALS: Ht 195.6 cm; Wt 121.8 kg
[2025-01-10] VITALS (13 sets, daily range): BP systolic 119–154; BP diastolic 69–87; PULSE 67–80; RESP 13–16; TEMP 98; O2SAT 96–99
[2025-01-10] MEDS ORDERED: diphenhydrAMINE 25mg capsule PO PRN (06:50)
--- NOTE | 2025-01-10 06:58 | ELECTROCARDIOGRAPH REPORT ---
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 SUSY Ayon Measurements Intervals [place] Rate: 82 P: 45 AK: 178 QRS: -14 QRSD: 106 T: 10 QT: 417 QTc: 487 Interpretive Statements Sinus rhythm Borderline prolonged QT interval Electronically Signed On 01-10-2025 17:35:[address] SUSY Ayon Please click the below link to view image of tracing.
[2025-01-10] MEDS ORDERED: INSU200I4 SQ (07:06)
[2025-01-10] MEDS ORDERED: INSU100C10 SQ (07:06)
[2025-01-10] MEDS ORDERED: NIFE90TA70 PO (07:06)
[2025-01-10] MEDS ORDERED: FURO40TA4 PO (07:10)
[2025-01-10] MEDS ORDERED: VALS80TA32 PO (07:10)
[2025-01-10] MEDS ORDERED: SEVE800T8 PO (07:10)
[2025-01-10] MEDS ORDERED: VITA-268 PO (07:11)
[2025-01-10] MEDS ORDERED: midazolam 1 mg/ML 2ml injection ONE ×2 (07:32→08:25)
[2025-01-10] MEDS ORDERED: verapamil 2.5 mg/ml inj IV ONE (07:32)
[2025-01-10] MEDS ORDERED: fentaNYL/PF 50MCG/1 ML 2ML syringe ONE (07:32)
[2025-01-10] MEDS ORDERED: LIDOcaine 1% (10mg/ml) 2ml vial ONE (07:32)
[2025-01-10] MEDS ORDERED: iohexol 350MG/ML 100ml bottle IV ONE (07:32)
[2025-01-10] MEDS ORDERED: heparin 1,000unit/ml 10ml vial 0 ML ONE (07:32)
[2025-01-10] MEDS ORDERED: nitroGLYCERIN 500mcg/5mL D5W 5 ML IV ONE (07:38)
[2025-01-10] MEDS ORDERED: LIDOcaine 1% 30ml preserv. free vial ONE (07:40)
[2025-01-10] MEDS: LORazepam 0.5 MG tablet PO PRN (07:53)
[2025-01-10] MEDS: normal saline 1,000 ML IV SCH (07:53)
--- NOTE | 2025-01-10 09:49 | CARDIAC CATH REPORT ---
Post Cath Report Providers to CC CC: TINA LIND MD; PJ COLE MD ~ Date of Procedure: January 10, 2025 Pre-Procedure Diagnosis: No Symptoms (Preoperative assessment prior to renal transplant) History: Diabetes, Htn, HX renal failure CCS Anginal Class: No Symptom [place] Functional Class: II Procedure Preformed: Other (Selective left and right coronary angiography) Post Procedure DX Same?: Yes Findings Findings: Procedure(s): 1. Selective left and right Coronary Angiography 2. Right Femoral Angiography 3. PerClose Closure Device placement to achieve hemostasis 4. Conscious sedation monitoring for 15 minutes Pre-Cardiac Catheterization Diagnosis: Preoperative cardiac risk assessment prior to renal transplant Post-Cardiac Catheterization Diagnosis: Normal coronary arteries Improvement Specialist(s): Pj Cole MD ([facility]) Indication: Mr. Nevarez is a 44 year old male with a past medical history significant for ESRD on HD, diabetes mellitus, and hypertension who presented to the office for a preoperative risk assessment prior to an upcoming renal transplant at [facility]. The patient did have a stress test that showed no reversible ischemia, but per guidelines from the renal transplant program at [facility], the patient was required to have a coronary angiography for definitive evaluation. The patient is being brought to the cardiac ammunition assembly ii laborer for further evaluation of their coronary anatomy with a coronary angiography. Procedure Details: Informed consent was obtained. Both groins were prepped and draped in the usual manner. The right femoral area was anesthetized with lidocaine, 2%, local infiltration. The right femoral artery was entered with a Cook needle using the modified Seldinger technique and a 6 F sheath was inserted. Catheter exchanges were made over the wire. Selective left and right coronary angiograms were obtained in multiple projections with JL4 and JR4 catheters respectively. A pigtail catheter was utilized for LV angiogram in the CULLEN projection. Pressures were recorded in the LV and aorta. At the termination of the procedure, all the wires and catheters were removed. A femoral angiography was performed to assess the access site and suitability for a closure device to achieve hemostasis. It was determined that the entry point was suitable for a closure device. A perclose device was used to achieve hemostasis. The patient was given conscious sedation and monitored for a total of 15 minutes. Catheters Used: 1. 6 Syrian JL4 2. 6 Syrian JR5 All catheters were exchanged over the wire. CORONARY ANGIOGRAM: Left Main: And normal vessel that is patent and distally bifurcates into an LAD and left circumflex coronary arteries. There is no angiographic evidence of disease in the left main coronary artery. Left Anterior Descending: Bpnuhtao-yh-zkarv caliber patent vessel with no angiographic evidence of disease. Left Circumflex: Non dominant vessel that is patent with no angiographic evidence of disease. Right Coronary Artery: Dominant vessel that is patent with no angiographic evidence of disease. Left Ventricular Angiography: Not performed Hemodynamics: Please refer to ammunition assembly ii laborer flow sheet. Valve Disease: Not assessed Amount of Contrast Used (ml): 15 ml Complications: None Closure Device: PerClose Impression: 1. Right dominant system. 2. Normal coronary arteries 3. Conscious sedation monitoring for 15 minutes Recommendations: -Routine post cath orders. -Continue with medical management. -Aggressive lifestyle and risk factor modifications were stressed to the patient in detail. -The patient will be considered low risk of cardiac MACE for his proposed renal transplant. Dominance: Right Moderate Sedation: Yes Complications: None Estimated Blood Loss: less than 5 cc Treatment Plan: Other (Renal transplant as per renal transplant team at [facility]) Condition on leaving [employer] Utility Worker: Stable PJ COLE MD January 10, 2025 09:49
== END 2025-01-10 13:05 | disposition home or self-care (01) ==
LOC: SSTAY O 06:30
PROVIDERS: ATTEND Internal Medicine Interventional Cardiology
DX: I35.0 Nonrheumatic aortic (valve) stenosis (principal); N18.6 End stage renal disease; E10.22 Type 1 diabetes mellitus with diabetic chronic kidney disease; I12.0 Hypertensive chronic kidney disease with stage 5 chronic kidney disease or end stage renal disease; Z88.6 Allergy status to analgesic agent; Z88.8 Allergy status to other drugs, medicaments and biological substances; Z79.82 Long term (current) use of aspirin; Z79.899 Other long term (current) drug therapy; E78.00 Pure hypercholesterolemia, unspecified
CPT/HCPCS: 36415; 80048; 80061; 83695; 85025; 85610; 85730; 93005; 93454; 99152; A6258; A6402; C1760; J1644; J2003; J2250; J3010; J3490; J7030; Q9967; Z7610; 85008; 93458; A6449